=== PATIENT | male | born 1950 | race Caucasian/White ===

== ENCOUNTER 2018-06-19 18:24 | Observation (INO) | payer OTHER, SELFPAY ==
[2018-06-19 21:30] VITALS: BP 147/73; BP 159/85; PULSE 63; RESP 20; TEMP 36.4; O2SAT 98
[2018-06-19 21:53] VITALS: PULSE 60
[2018-06-19 22:15] VITALS: O2SAT 98
--- NOTE | 2018-06-19 22:15 | HP.PCM_ITS ---
Problem List (1) SIMON (acute kidney injury) Status: Acute (2) Syncope Status: Acute Qualifiers: Syncope type: unspecified Qualified Code(s): R55 - Syncope and collapse (3) HTN (hypertension) Status: Chronic (4) HLD (hyperlipidemia) Status: Acute (5) Diabetes mellitus, type II Status: Acute (6) CAD (coronary artery disease) Status: Acute (7) S/P CABG x 4 Status: Acute (8) Morbid obesity Status: Acute (9) PVD (peripheral vascular disease) Status: Acute (10) Aortic stenosis Status: Acute History of Present Illness Date of Admission: 06/19/18 Chief Complaint: Syncopal event The patient is a 67 y/o M w/ PMHx: Morbid Obesity, Diabetes mellitus type II, PVD, HTN, HLD, CAD s/p CABG x 4, Hx Urethral stricture s/p dilation, Hx Aortic Stenosis who presents to the [facility] as direct admission from [facility] w/ history of syncopal event following 18-holes of golf while walking after finishing w/ onset lightheadedness, dizziness, mild dyspnea prior, lasting only seconds, noted to have fallen to his knees only with no head trauma or injury. OSH work-up with EKG w/ SR with 1 AVB, CXR without acute findings, normal trop x 1, labs only notable for evidence of SIMON w/ BUN/Cr 28/1.57. He was administered 1L NS. Transfer requested to [facility] secondary to patient living in this area, only up to [place] for golfing with friends. Past Medical History Past Medical History (Chronic Problems): Chronic Problems HTN (hypertension) (Chronic) History of shortness of breath (Chronic) CAP (community acquired pneumonia) (Chronic) Home Medications: Ambulatory Orders Medication Instructions Recorded Aspirin [Aspirin, Baby] 81 mg PO DAILY@0800 06/19/18 Glimepiride [Amaryl] 2 mg PO DAILY 06/19/18 Lisinopril [Zestril] 10 mg PO DAILY 06/19/18 Metoprolol Tartrate [Lopressor 25 mg PO BID 06/19/18 (beta sandy)] Rosuvastatin Calcium [Rosuvastatin 40 mg PO QHS 06/19/18 Calcium] Surgical History: - - Tonsillectomy, urethral dilation secondary to strictures, CABG ?4. Psychiatric History: No pertinent psych hx Lives: Spouse/ Significant Other Smoking Status: Never smoker Tobacco Use: Non-smoker Alcohol: None Drugs: None - *Family History Maternal History Items: - - Patient denies any marked maternal or paternal family history including heart disease, diabetes, cancer. Paternal History Items: - - Patient denies any marked maternal or paternal family history including heart disease, diabetes, cancer. Review of Systems Constitutional: Reports: Weakness, Fatigue. Denies: Chills, Fever, Weight Change HEENT: Denies: Head Aches, Sinus Congestion, Sinus Drainage Cardiovascular: Reports: Light Headedness, Syncope. Denies: Chest Pain, Chest Pressure, Chest Tightness, Heaviness, Orthopnea, Palpitations Respiratory: Reports: Shortness of Breath. Denies: Cough, Shortness of breath at rest, Shortness of breath upon exertion, Sputum production Gastrointestinal: Denies: Abdominal Pain, Nausea, Vomiting Genitourinary: Denies: Dysuria Musculoskeletal: Reports: Leg Pain. Denies: Joint Pain, Joint Tenderness Skin: Reports: Skin Changes. Denies: Rash, Wounds Neurological: Denies: Numbness, Tingling, Focal weakness Psychiatric: Denies: Anxiety, Depression, Homicidal Ideations, Suicidal Ideations Hematologic/ Lymphatic: Denies: Easy Bruising, Easy Bleeding VTE Information - Inpt Only VTE Present on Admission: No VTE Mechan Device Prophylaxis: SCD's VTE Pharm Prophylaxis ordered?: Yes Patient Problems: Active and Suspected Problems Syncope (Acute) HLD (hyperlipidemia) (Acute) Diabetes mellitus, type II (Acute) CAD (coronary artery disease) (Acute) S/P CABG x 4 (Acute) Morbid obesity (Acute) PVD (peripheral vascular disease) (Acute) Aortic stenosis (Acute) SIMON (acute kidney injury) (Acute) Subjective: Seated upright in the bed, no acute distress, notes thirsty currently, no other acute complaints. Objective: Physical Examination: General: awake, alert, oriented x 3 and cooperative, seated upright in bed in no apparent distress. Skin: normal color, turgor, no icterus, cyanosis except bilateral lower extremity right greater than left chronic venous skin changes and bilateral knee abrasions secondary to recent fall. HEENT: AT/NC, EOMI, PERRLA, dry MM, no carotid bruits or JVD noted. Lungs: CTA bilaterally, moderate effort, mild decrease BL bases, no rales, ronchi or wheezing. Heart: Regular rate and rhythm; no gallop, rub audible, SM. Abdomen: soft, morbidly obese, NTTP, ND, normal BS, no HSM; however, habitus makes examination difficult. Extremities: no cyanosis, clubbing, bilateral lower extremity chronic venous skin changes, chronic 1-2+ ankle to distal card edema. Neurological: patient awake, alert, oriented x 3; cognitive function intact; pupils equally reactive to light and accomodation; cranial nerves II-XII grossly normal, moving all 4 extremities, no focal deficits, strength mildly globally decreased. Psychiatric: affect appears normal, no acute evidence of depressive or anxiety feelings. Assessment/Plan All Active Problems Syncope (Acute) HLD (hyperlipidemia) (Acute) Diabetes mellitus, type II (Acute) CAD (coronary artery disease) (Acute) S/P CABG x 4 (Acute) Morbid obesity (Acute) PVD (peripheral vascular disease) (Acute) Aortic stenosis (Acute) SIMON (acute kidney injury) (Acute) The patient is a 67 y/o M w/ PMHx: Morbid Obesity, Diabetes mellitus type II, PVD, HTN, HLD, CAD s/p CABG x 4, Hx Urethral stricture s/p dilation, Hx Aortic Stenosis who presents to the [facility] as direct admission from [facility] w/ history of syncopal event following 18-holes of golf while walking after finishing w/ onset lightheadedness, dizziness, mild dyspnea prior, lasting only seconds, noted to have fallen to his knees only with no head trauma or injury. (1) Syncopal Event: Suspect primarily secondary to dehydration w/ concurrent SIMON secondary to poor intake and prolonged heat/sun exposure of >90 degree heat warning weather day. EKG in ED w/ sinus rhythm without evidence of acute ischemia w/ 1 AVB, CXR w/ no acute cardiopulmonary findings, initial trop normal at OSH prior to transfer. Will admit to PCU, place on a monitored bed to assure no acute myocardial infarction with serial cardiac enzymes and EKGs. Will maintain on fall precautions, obtain admission orthostatic and AM orthostatic VS and increase hydration if appropriate. Gently hydrating given aortic stenosis hx. Although likely secondary to SIMON, dehydration as noted, does have notable cardiac history, thus to be cautious will obtain ECHO, carotid US. If unremarkable work-up, expect possibly discharge tomorrow following work-up completion. (2) Acute kidney injury: Secondary to poor intake, heat exposure concurrently as noted. Admission BUN/Cr 28/1.57 , prior baseline creatinine noted to be 1. Will hydrate, hold nephrotoxic medications and repeat chemistry in AM. If no improvement would plan FeNa and renal US assessment. (3) Diabetes mellitus type II: Hold oral home regimen, HgbA1c pending, ADA diet , accu checks w/ ISS, nutrition consulted for education and teaching. (4) Morbid Obesity: Weight loss and lifestyle changes encouraged, nutrition consulted. (5) CAD: s/p CABG x 4. Will continue home regimen asa, statin, BB. (6) Hypertension: Continue home regimen including metoprolol w/ hold parameters , holding TERI inhibitor secondary to concurrent SIMON presentation with re- addition once improved, PRN hydralazine. (7) Hyperlipidemia: Continue home statin regimen. AM FLP. (8) Valvular heart disease: Noted history of aortic stenosis, unclear extent, echocardiogram ordered. (9) Peripheral vascular disease: Encouraged continued bilateral lower extremity compression stocking usage and elevation. (10) DVT prophylaxis: Continue compression stockings, SCDs, renally dosed Lovenox. Code Visit OBSV E&M: [id number] Initial observation care L3
[2018-06-19 22:42] VITALS: BMI 41.1
[2018-06-19 22:48] VITALS: BMI 41.1
[2018-06-19 22:59] VITALS: PULSE 58
[2018-06-19 23:10] LABS: Bedside Glucose 142 mg/dL (70-110)
[2018-06-19] MEDS: 0.9% Normal Saline 1,000 ML 100 ML IV (23:16)
[2018-06-19 23:20] VITALS: BP 147/73; PULSE 63
[2018-06-19] MEDS: Metoprolol Tartrate 25 MG Tablet PO (23:20)
[2018-06-19 23:30] VITALS: BP 152/75; BP 157/76; BP 163/81; PULSE 57; PULSE 59; PULSE 61
[2018-06-20] VITALS (15 sets, daily range): BP systolic 136–160; BP diastolic 65–84; PULSE 53–73; RESP 18–20; TEMP 36.3–36.7; O2SAT 94–97
[2018-06-20 00:12] LABS: Hemoglobin A1c 7.3 % (4.2-6.3)
[2018-06-20 03:40] LABS: Basophil# 0.02 X10^3/uL; Basophil% 0.2 % (0-1); Eosinophil# 0.17 X10^3/uL; Eosinophils% 1.8 % (0-5); Hematocrit 39.3 % (40-54); Lymphocyte % 26.4 % (19-41); Mean Corp Hgb Conc 33.1 g/gl (32-36); Mean Corpuscular Hgb 27.8 pg (27.0-32.0); Mean Corpuscular Volume 84.2 fL (80-94); Mean Platelet Vol. 10.6 fl (6.2-12.0); Monocyte# 0.76 X10^3/uL; Neutrophil # 6.01 X10^3/uL (2.7-7.7); Neutrophil % 63.5 % (47-70); Platelet Count 201 K/mm3 (150-450); RBC Distribution Width CV 13.7 % (11.6-14.6); RBC Distribution Width SD 41.4 fl (35.1-43.9); Red Blood Count 4.67 M/mm3 (4.6-6.2); White Blood Count 9.5 K/mm3 (4.4-11.0)
[2018-06-20 03:41] LABS: POSITIVE COUNT NO; POSITIVE DIFFERENTIAL NO; POSITIVE MORPHOLOGY NO
[2018-06-20 04:26] LABS: ALB/GLOB Ratio 1.1 RATIO (0.9-2.4); AST(SGOT) 17 U/L (15-37); Alanine Aminotransfer ALT/SGPT 33 U/L (16-61); Albumin, Serum 3.5 g/dL (3.2-5.0); Alkaline Phosphatase 62 U/L (45-117); Anion Gap 11 (5-15); BUN 22 mg/dL (7-18); BUN/Creat Ratio 21.4 RATIO (10-20); Calcium,Total 8.5 mg/dL (8.5-10.1); Chloride 109 mmol/L (98-107); Cholesterol 152 mg/dL (200); Creatinine, Serum 1.03 mg/dL (0.70-1.30); EST Glomerular Filtration Rate 76 mL/min (>60); Est Glom Filt Rate - Afr Amer 92 mL/min (>60); Estimated Creatinine Clearance 75.34 ml/min; Globulin 3.3 g/dL (2.2-4.2); Glucose 130 mg/dL (74-106); High Density Lipoprotein 42 mg/dL; Potassium 3.8 mmol/L (3.5-5.1); Protein, Total 6.8 g/dL (6.4-8.2); Sodium Level 143 mmol/L (136-145); Triglycerides 198 mg/dL; Very Low Density Lipoprotein 40 mg/dL (5-40)
[2018-06-20 07:20] LABS: Bedside Glucose 125 mg/dL (70-110)
[2018-06-20] MEDS: Metoprolol Tartrate 25 MG Tablet PO ×2 (10:19→22:23)
[2018-06-20] MEDS: Aspirin 81 MG TAB.CHEW PO (10:19)
[2018-06-20] MEDS: 0.9% Normal Saline 1,000 ML 100 ML IV (10:23)
[2018-06-20 11:55] LABS: Bedside Glucose 206 mg/dL (70-110)
--- NOTE | 2018-06-20 15:39 | PCM.PROGNOTE ---
<Duy Redding - Last Filed: 06/20/18 15:39> Patient Problems: Active and Suspected Problems Syncope (Acute) HLD (hyperlipidemia) (Acute) Diabetes mellitus, type II (Acute) CAD (coronary artery disease) (Acute) S/P CABG x 4 (Acute) Morbid obesity (Acute) PVD (peripheral vascular disease) (Acute) Aortic stenosis (Acute) SIMON (acute kidney injury) (Acute) Subjective: No CP, tightness, heaviness, pressure, dizziness, LH, Palp, edema, SOB. - Physical Exam General: Alert, Oriented x3, Cooperative HEENT: Atraumatic, PERRLA, EOMI, Normocephalic Neck: Supple, No JVD, Negative Carotid Bruits Lungs: Clear to auscultation, Normal air movement Cardiovascular: Regular rate, Murmur - 2/6 sysolic murmur best heard over the LSB radiating into the neck. Abdomen: Bowel Sounds Present, Soft, Non Tender Extremities: No edema, Capillary Refill Less than 3 Seconds Skin: No rashes, No breakdown Musculoskeletal: No Tenderness to Palpation of Joints or Extremities Neurological: Cranial nerves II-XII grossly intact Psych/Mental Status: Normal Affect, Appropriate, Alert and oriented to time, place, person, mood and affect Vital Signs Temp Pulse Resp BP Pulse Ox 97.3 F L 67 18 156/82 H 97 06/20/18 10:17 06/20/18 11:10 06/20/18 10:17 06/20/18 10:17 06/20/18 10:17 Oxygen Delivery Method Room Air Weight: 302 lb 14.642 oz Body Mass Index (BMI) 41.1 Orthostatic Vital Signs Start: 06/20/18 01:36 Freq: q24h Status: Active Protocol: Activity Type Activity Date Activity User E-Sign Co-Sign Detail Recorded Client Recorded Date Recorded By Document 06/20/18 07:10 PAL [id number] 06/20/18 07:12 PAL 06/20/18 07:10 Orthostatic Vitals Standing -Blood Pressure (90/60-120/80) 142/80 H -Extremity Use Right Arm -Pulse Rate (60-100) 66 Sitting -Blood Pressure (90/60-120/80) 136/65 H -Extremity Use Right Arm -Pulse Rate (60-100) 59 L Lying -Blood Pressure (90/60-120/80) 150/73 H -Extremity Use Right Arm -Pulse Rate (60-100) 57 L Intake and Output for Last 24 Hours 06/18/18 06/19/18 06/20/18 23:59 23:59 23:59 Intake Total 1238 / 1238 Output Total 550 / 550 Balance 688 / 688 Laboratory Tests Past 24 Hrs 06/19/18 06/19/18 06/20/18 22:36 22:36 01:25 WBC RBC Hgb Hct MCV MCH MCHC RDW RDW Differential Plt Count MPV Immature Gran % (Auto) Neut % (Auto) Lymph % (Auto) [place] % (Auto) Eos % (Auto) Baso % (Auto) Absolute Neuts (auto) Absolute Lymphs (auto) Total Counted Sodium Potassium Chloride Carbon Dioxide Anion Gap BUN Creatinine Estim Creat Clear Calc Est GFR (MDRD) Af Amer Est GFR (MDRD) Non-Af BUN/Creatinine Ratio Glucose Hemoglobin A1c 7.3 H Calcium Magnesium 2.0 Total Bilirubin AST ALT Alkaline Phosphatase Troponin I < 0.015 < 0.015 Total Protein Albumin Globulin Albumin/Globulin Ratio Triglycerides Cholesterol LDL Cholesterol VLDL Cholesterol HDL Cholesterol 06/20/18 06/20/18 06/20/18 03:24 03:24 03:24 WBC 9.5 RBC 4.67 Hgb 13.0 Hct 39.3 L MCV 84.2 MCH 27.8 MCHC 33.1 RDW 13.7 RDW Differential 41.4 Plt Count 201 MPV 10.6 Immature Gran % (Auto) 0.100 Neut % (Auto) 63.5 Lymph % (Auto) 26.4 [place] % (Auto) 8.0 Eos % (Auto) 1.8 Baso % (Auto) 0.2 Absolute Neuts (auto) 6.0 Absolute Lymphs (auto) 2.50 Total Counted Not Reportable Sodium 143 Potassium 3.8 Chloride 109 H Carbon Dioxide 23.0 Anion Gap 11 BUN 22 H Creatinine 1.03 Estim Creat Clear Calc 75.34 Est GFR (MDRD) Af Amer 92 Est GFR (MDRD) Non-Af 76 BUN/Creatinine Ratio 21.4 H Glucose 130 H Hemoglobin A1c Calcium 8.5 Magnesium Total Bilirubin 0.60 AST 17 ALT 33 Alkaline Phosphatase 62 Troponin I < 0.015 Total Protein 6.8 Albumin 3.5 Globulin 3.3 Albumin/Globulin Ratio 1.1 Triglycerides 198 Cholesterol 152 LDL Cholesterol 70 VLDL Cholesterol 40 HDL Cholesterol 42 POC Glucose 06/20/18 06/20/18 06/19/18 11:50 07:01 22:19 POC Glucose 206 H 125 H 142 H Medical Necessity - Tobacco Use Smoking Status: Never smoker Tobacco Use: Non-smoker Assessment/Plan All Active Problems Syncope (Acute) HLD (hyperlipidemia) (Acute) Diabetes mellitus, type II (Acute) CAD (coronary artery disease) (Acute) S/P CABG x 4 (Acute) Morbid obesity (Acute) PVD (peripheral vascular disease) (Acute) Aortic stenosis (Acute) SIMON (acute kidney injury) (Acute) 1. Syncope - suspect 2/2 dehydration out golfing in the sun/heat for 18 holes, event happened after. Echo unremarkable, Carotid US pending. Trop negx3, EKG with no new changes, tele neg. 2. SIMON 2/2 dehydration - resolved. Cr went from 1.5 to 1.0 overnight with IV fluids. 3. s/p Porcine AV - stable per echo 4. DMt2 with morbid obesity - refusing insulin, restarting evening amaryl. A1C 7.3, would benefit from increased oral therapy at discharge given his cardiac issues. 5. HTN - likely elevated 2/2 holding TERI for SIMON. Restart at DC. 6. CAD with prior CABGx4 - statin, teri, bb, asa home regimen in place. 7. Hx PVD DVT ppx: lovenox DC planning: likely home tomorrow. This patient was seen by Duy Redding PA-C under the supervision of Dr. Langston. <Naomie Langston - Last Filed: 06/20/18 16:05> - Physical Exam Vital Signs Temp Pulse Resp BP Pulse Ox 97.3 F L 67 18 156/82 H 97 06/20/18 10:17 06/20/18 11:10 06/20/18 10:17 06/20/18 10:17 06/20/18 10:17 Oxygen Delivery Method Room Air Weight: 302 lb 14.642 oz Body Mass Index (BMI) 41.1 Orthostatic Vital Signs Start: 06/20/18 01:36 Freq: q24h Status: Active Protocol: Activity Type Activity Date Activity User E-Sign Co-Sign Detail Recorded Client Recorded Date Recorded By Document 06/20/18 07:10 [facility] [id number] 06/20/18 07:12 PAL 06/20/18 07:10 Orthostatic Vitals Standing -Blood Pressure (90/60-120/80) 142/80 H -Extremity Use Right Arm -Pulse Rate (60-100) 66 Sitting -Blood Pressure (90/60-120/80) 136/65 H -Extremity Use Right Arm -Pulse Rate (60-100) 59 L Lying -Blood Pressure (90/60-120/80) 150/73 H -Extremity Use Right Arm -Pulse Rate (60-100) 57 L Intake and Output for Last 24 Hours 06/18/18 06/19/18 06/20/18 23:59 23:59 23:59 Intake Total 1238 / 1238 Output Total 550 / 550 Balance 688 / 688 Laboratory Tests Past 24 Hrs 06/19/18 06/19/18 06/20/18 22:36 22:36 01:25 WBC RBC Hgb Hct MCV MCH MCHC RDW RDW Differential Plt Count MPV Immature Gran % (Auto) Neut % (Auto) Lymph % (Auto) [place] % (Auto) Eos % (Auto) Baso % (Auto) Absolute Neuts (auto) Absolute Lymphs (auto) Total Counted Sodium Potassium Chloride Carbon Dioxide Anion Gap BUN Creatinine Estim Creat Clear Calc Est GFR (MDRD) Af Amer Est GFR (MDRD) Non-Af BUN/Creatinine Ratio Glucose Hemoglobin A1c 7.3 H Calcium Magnesium 2.0 Total Bilirubin AST ALT Alkaline Phosphatase Troponin I < 0.015 < 0.015 Total Protein Albumin Globulin Albumin/Globulin Ratio Triglycerides Cholesterol LDL Cholesterol VLDL Cholesterol HDL Cholesterol 06/20/18 06/20/18 06/20/18 03:24 03:24 03:24 WBC 9.5 RBC 4.67 Hgb 13.0 Hct 39.3 L MCV 84.2 MCH 27.8 MCHC 33.1 RDW 13.7 RDW Differential 41.4 Plt Count 201 MPV 10.6 Immature Gran % (Auto) 0.100 Neut % (Auto) 63.5 Lymph % (Auto) 26.4 [place] % (Auto) 8.0 Eos % (Auto) 1.8 Baso % (Auto) 0.2 Absolute Neuts (auto) 6.0 Absolute Lymphs (auto) 2.50 Total Counted Not Reportable Sodium 143 Potassium 3.8 Chloride 109 H Carbon Dioxide 23.0 Anion Gap 11 BUN 22 H Creatinine 1.03 Estim Creat Clear Calc 75.34 Est GFR (MDRD) Af Amer 92 Est GFR (MDRD) Non-Af 76 BUN/Creatinine Ratio 21.4 H Glucose 130 H Hemoglobin A1c Calcium 8.5 Magnesium Total Bilirubin 0.60 AST 17 ALT 33 Alkaline Phosphatase 62 Troponin I < 0.015 Total Protein 6.8 Albumin 3.5 Globulin 3.3 Albumin/Globulin Ratio 1.1 Triglycerides 198 Cholesterol 152 LDL Cholesterol 70 VLDL Cholesterol 40 HDL Cholesterol 42 POC Glucose 06/20/18 06/20/18 06/19/18 11:50 07:01 22:19 POC Glucose 206 H 125 H 142 H Assessment/Plan Patient seen by Duy Redding PA-C under my supervision. Patient admitted that he had a brief syncopal episode while he was out playing golf. Patient had been in the heat for quite a while and said that he had been keeping hydrated by drinking lots of fluid. He had no associated urinary or fecal incontinence. EKG was negative and troponin ?3 was also negative. He was admitted and be managed for syncope likely due to dehydration and AK I secondary to dehydration. Patient seen and examined. He had no complaints and felt well. He denied any fever, chills, cough, chest pain, SOB, abdominal pain, diarrhea or vomiting. Review of systems was otherwise negative. Vitals: Vital Signs Height 6 ft Weight: 302 lb 14.642 oz Weight in Pounds 302.9 lbs Pulse Ox 97 Temperature 97.3 F Pulse Rate [Standing] 66 Pulse Rate [Sitting] 59 Pulse Rate [Lying] 57 Pulse Rate 67 Respiratory Rate 18 Blood Pressure [Standing] 142/80 Blood Pressure [Sitting] 136/65 Blood Pressure [Lying] 150/73 Blood Pressure [2nd BP] 159/85 Blood Pressure 156/82 Blood Pressure Position [2nd Semi-Fowlers BP] Blood Pressure Position Semi-Fowlers General: Alert, Oriented x3, Cooperative HEENT: Atraumatic, PERRLA, EOMI, Normocephalic Neck: Supple, No JVD, Negative Carotid Bruits Lungs: Clear to auscultation, Normal air movement Cardiovascular: Regular rate, Murmur - 2/6 sysolic murmur best heard over the LSB radiating into the neck. Abdomen: Bowel Sounds Present, Soft, Non Tender Extremities: No edema, Capillary Refill Less than 3 Seconds Skin: No rashes, No breakdown Musculoskeletal: No Tenderness to Palpation of Joints or Extremities Neurological: Cranial nerves II-XII grossly intact Psych/Mental Status: Normal Affect, Appropriate, Alert and oriented to time, place, person, mood and affect 2D echo showed moderate concentric LVH with EF of 75%, and septal motion consistent with IVCD. No regional wall motion abnormalities, severely enlarged LA nad moderately enlarged RA. RVSP is 33mmHg and has stable appearing bioprosthetic aortic valve apparatus. Carotid USG is pending. Simon has resolved with IVF administration and Cr is down to 1. Plan is to await carotid USG. continue lisinopril for hypertension. Patient counselled to keep hydrated. For likely discharge tomorrow. Rest of management as per Duy Redding PA-C's plan. Code Visit OBSV E&M: [id number] Subsequent observation care L2
[2018-06-20 16:21] LABS: Bedside Glucose 145 mg/dL (70-110)
[2018-06-20] MEDS: Glimepiride 2 MG Tablet PO (16:45)
[2018-06-20] MEDS: Atorvastatin Calcium 80 MG Tablet PO (22:23)
[2018-06-20 23:16] LABS: Bedside Glucose 152 mg/dL (70-110)
[2018-06-21 03:16] VITALS: PULSE 50
[2018-06-21 04:00] VITALS: BP 137/81; PULSE 50; RESP 16; TEMP 36.6; O2SAT 96
[2018-06-21 06:41] LABS: Absolute Lymphocyte Count 2.51 X10^3/ul (0.83-4.51); Absolute Neutrophil Count 4.5 X10^3/uL (2.0-7.7); Basophil# 0.03 X10^3/uL; Basophil% 0.4 % (0-1); Eosinophil# 0.27 X10^3/uL; Eosinophils% 3.4 % (0-5); Hematocrit 39.2 % (40-54); Hemoglobin 13.2 g/dl (13.0-16.5); Lymphocyte # 2.51 X10^3/ul (4.0); Lymphocyte % 31.8 % (19-41); Mean Corp Hgb Conc 33.7 g/gl (32-36); Mean Corpuscular Hgb 28.1 pg (27.0-32.0); Mean Corpuscular Volume 83.6 fL (80-94); Monocyte# 0.59 X10^3/uL; Monocyte% 7.5 % (0-10); Neutrophil # 4.47 X10^3/uL (2.7-7.7); Neutrophil % 56.6 % (47-70); Platelet Count 191 K/mm3 (150-450); RBC Distribution Width CV 13.6 % (11.6-14.6); RBC Distribution Width SD 41.2 fl (35.1-43.9); Red Blood Count 4.69 M/mm3 (4.6-6.2); White Blood Count 7.9 K/mm3 (4.4-11.0)
[2018-06-21 06:46] LABS: POSITIVE COUNT NO; POSITIVE DIFFERENTIAL NO; POSITIVE MORPHOLOGY NO
[2018-06-21 06:52] LABS: Anion Gap 9 (5-15); BUN 16 mg/dL (7-18); BUN/Creat Ratio 15.7 RATIO (10-20); Calcium,Total 8.3 mg/dL (8.5-10.1); Chloride 108 mmol/L (98-107); Creatinine, Serum 1.02 mg/dL (0.70-1.30); EST Glomerular Filtration Rate 77 mL/min (>60); Est Glom Filt Rate - Afr Amer 93 mL/min (>60); Estimated Creatinine Clearance 76.08 ml/min; Glucose 133 mg/dL (74-106); Potassium 3.9 mmol/L (3.5-5.1); Sodium Level 142 mmol/L (136-145)
[2018-06-21 07:00] LABS: Bedside Glucose 148 mg/dL (70-110)
[2018-06-21 07:06] VITALS: PULSE 58
[2018-06-21 07:35] VITALS: O2SAT 94
[2018-06-21 09:01] VITALS: BP 141/84; PULSE 73; RESP 16; TEMP 36.5; O2SAT 95
[2018-06-21 09:11] VITALS: PULSE 73
[2018-06-21] MEDS: Aspirin 81 MG TAB.CHEW PO (09:11)
[2018-06-21] MEDS: Metoprolol Tartrate 25 MG Tablet PO (09:11)
--- NOTE | 2018-06-21 10:41 | PCM.DC ---
- Discharge Diagnoses Current Active Problems: Current Active and Chronic Problems Syncope (Acute) HTN (hypertension) (Chronic) HLD (hyperlipidemia) (Acute) Diabetes mellitus, type II (Acute) CAD (coronary artery disease) (Acute) S/P CABG x 4 (Acute) Morbid obesity (Acute) PVD (peripheral vascular disease) (Acute) Aortic stenosis (Acute) SIMON (acute kidney injury) (Acute) You will use the following diet at home:: Calorie/Carbohydrate Controlled (specify 1200, 1400, etc), Cardiac Discharge Activity: Return to Normal Activity Call your doctor if you observe: Shortness of breath, Dizziness, Fainting spells, Chest pain Additional Instructions: Your hemoglobin A1c was elevated at 7.3%. Recommend increasing your home Amaryl regimen to 4 mg daily. You can use current prescription and take 2 tablets of Amaryl 2 mg. Further follow-up with primary care physician regarding further adjustment and recommendations. Allergies/Adverse Reactions: Allergies No Known Allergies Allergy (Verified 06/19/18 22:24) Medications to take at Discharge Aspirin 162 mg PO DAILY 06/19/18 Lisinopril [Zestril] 10 mg PO DAILY 06/19/18 Metoprolol Tartrate 25 mg PO BID 06/19/18 Multivitamins,Ther W-Minerals [Multivitamin With Minerals] 1 tablet PO DAILY 06/19/18 [place]-3 Fatty Acids/Fish Oil [[place]-3 1,000 mg Softgel] 1 each PO QHS 06/19/18 Rosuvastatin Calcium [Crestor] 40 mg PO DAILY 06/19/18 Glimepiride [Amaryl] 4 mg PO DINNER #0 06/21/18 Primary Care Physician: Juliano Bowles MD [Primary Care Provider] - Please follow up with your Primary Care Physician in: 1 Week Test Results: Test results from this visit will be discussed in further detail at your follow-up appointment, if applicable. Proposed Discharge Date: 06/21/18
--- NOTE | 2018-06-21 10:44 | PCM.DC.SUM ---
<Gloria Rios - Last Filed: 06/21/18 10:54> Discharge Date and Diagnosis Date of Admission: 06/19/18 Date of Discharge: 06/21/18 - Primary Discharge Diagnosis Active and Suspected Problems 1. Syncope suspected secondary to dehydration 2. Acute kidney injury secondary to dehydration - Secondary Discharge Diagnosis Chronic Problems HTN (hypertension) (Chronic) History of shortness of breath (Chronic) CAP (community acquired pneumonia) (Chronic) HLD (hyperlipidemia) Diabetes mellitus, type II CAD (coronary artery disease) S/P CABG x 4 Morbid obesity PVD (peripheral vascular disease) Aortic stenosis Hospital Course and Treatment Operations: None Procedures: 2-D Echocardiogram, - - Carotid ultrasound Summary of Care Provided: The patient is a 67 year old M admitted 06/19/2018 due to syncopal event. He has a past medical history of type 2 diabetes mellitus, morbid obesity, PVD, hypertension, hyperlipidemia, CAD status post CABG ?4, history of urethral stricture status post dilation, history of aortic stenosis. Chest x-ray unremarkable. Troponin negative. EKG sinus rhythm with first-degree AV block. Orthostatic vitals negative. Echocardiogram demonstrated an EF of 75%, left atrium severely enlarged, right atrium moderately enlarged, mild mitral valve insufficiency, mild tricuspid valve insufficiency, RVSP estimated to be 33 mmHg, stable appearing bioprosthetic aortic valve. Carotid ultrasound demonstrated 50-69% stenosis of the right internal carotid and 50-69% stenosis in the left internal carotid. Patient follows with Dr. Garrido, [facility] cardiology. Patient was noted to have acute kidney injury secondary to dehydration which is suspected because of syncopal event. Patient notes he was golfing 18 holes and significant heat prior to syncopal episode. Creatinine at outside facility 1.5. Baseline creatinine 1.0. Creatinine improved with IV fluids. Hemoglobin A1c 7.3%. Recommend increasing home Amaryl regimen to 4 mg daily with further outpatient follow-up with primary care physician regarding medication adjustments. Follow-up with cardiology as scheduled. Follow-up with primary care physician in 1 week. General: Alert, Oriented x3, Cooperative HEENT: Atraumatic, PERRLA, EOMI, Normocephalic Neck: Supple, No JVD, Negative Carotid Bruits Lungs: Clear to auscultation, Normal air movement Cardiovascular: Regular rate, regular rhythm, murmur Abdomen: Bowel Sounds Present, Soft, Non Tender Extremities: No edema, Capillary Refill Less than 3 Seconds Skin: No rashes, No breakdown Musculoskeletal: No Tenderness to Palpation of Joints or Extremities Neurological: Cranial nerves II-XII grossly intact Psych/Mental Status: Normal Affect, Appropriate Patient seen exam prior to discharge. Physical assessment as noted above. Patient is stable for discharge home with follow-up her conditions as noted above. This patient was seen by MEENU Ruiz under the supervision of Dr. Langston. Discharge Diet: Low fat/ Low Cholesterol, Carb Control Diet Discharge Activity: Return to Normal Activity Call your doctor if you observe: Shortness of breath, Dizziness, Fainting spells, Chest pain Home Medications: Medications to take at Discharge Aspirin 162 mg PO DAILY 06/19/18 Lisinopril [Zestril] 10 mg PO DAILY 06/19/18 Metoprolol Tartrate 25 mg PO BID 06/19/18 Multivitamins,Ther W-Minerals [Multivitamin With Minerals] 1 tablet PO DAILY 06/19/18 [place]-3 Fatty Acids/Fish Oil [[place]-3 1,000 mg Softgel] 1 each PO QHS 06/19/18 Rosuvastatin Calcium [Crestor] 40 mg PO DAILY 06/19/18 Glimepiride [Amaryl] 4 mg PO DINNER #0 06/21/18 Primary Care Physician: Juliano Bowles MD [Primary Care Provider] - Please follow up with your Primary Care Physician in: 1 Week Disposition: Home Minutes spent on discharge:: 35 Patient Condition:: Stable Medical Necessity - Tobacco Use Smoking Status: Never smoker Tobacco Use: Non-smoker Meaningful Use Info Meaningful Use Diagnoses (Choose all that apply): None applicable <Naomie Langston - Last Filed: 06/21/18 11:39> Discharge Date and Diagnosis - Secondary Discharge Diagnosis Chronic Problems HTN (hypertension) (Chronic) History of shortness of breath (Chronic) CAP (community acquired pneumonia) (Chronic) Hospital Course and Treatment Summary of Care Provided: Patient seen by Gloria CORRIGAN under my supervision The patient is a 67 year old M who was admitted with a syncopal event. He has past medical history as stated above. He was out playing golf with friends and felt very hot due to the weather and passed out. He had no assisted urinary fecal incontinence and no evidence of seizure was noted. Orthostatics were negative. Was admitted and managed for AK I and syncopal event. Creatinine trended down and AK resolved with initiation of IV fluid. Echo showed EF of 75% and severely enlarged left atrium, moderately enlarged right atrium and mild 1+ mitral valve tricuspid valve insufficiency. RVSP was estimated to be on 33% and had a stable appearing bioprosthetic aortic valve. Carotid ultrasound as documented above revealed bilateral 50-69% stenosis of right and left internal carotid arteries. Patient remained stable and was discharged home on 06/21/2018. He is to follow-up with his surveillance specialist Dr. Faria [facility]. His follow-up with his primary care doctor in 1 week. Home medications reviewed and reconciled. He is continue taking his high intensity statin as prescribed. Patient seen and examined prior to discharge. He had no complaints and felt well. He was anticipating going home today. He denied any fever or chills, cough or chest pain, shortness of breath, abdominal pain, diarrhea vomiting. Labs and vitals reviewed. o/e: Vital Signs Height 6 ft Weight: 302 lb 14.642 oz Weight in Pounds 302.9 lbs Pulse Ox 95 Temperature 97.7 F Pulse Rate [Standing] 66 Pulse Rate [Sitting] 59 Pulse Rate [Lying] 57 Pulse Rate 73 Respiratory Rate 16 Blood Pressure [Standing] 142/80 Blood Pressure [Sitting] 136/65 Blood Pressure [Lying] 150/73 Blood Pressure [2nd BP] 159/85 Blood Pressure 141/84 Blood Pressure Position [2nd Semi-Fowlers BP] Blood Pressure Position Semi-Fowlers General: Alert, Oriented x3, Cooperative HEENT: Atraumatic, PERRLA, EOMI, Normocephalic Neck: Supple, No JVD, Negative Carotid Bruits Lungs: Clear to auscultation, Normal air movement Cardiovascular: Regular rate, regular rhythm, murmur Abdomen: Bowel Sounds Present, Soft, Non Tender Extremities: No edema, Capillary Refill Less than 3 Seconds Skin: No rashes, No breakdown Musculoskeletal: No Tenderness to Palpation of Joints or Extremities Neurological: Cranial nerves II-XII grossly intact Psych/Mental Status: Normal Affect, Appropriate Plan as stated above. Agree with rest of Gloria Rios NP-C's note. [] Code Visit Inpatient E&M: 94798 Disch Hosp
== END 2018-06-21 10:42 | disposition home or self-care (01) ==
PROVIDERS: Family Medicine; Admitting Provider Student in an Organized Health Care Education/Training Program; Family Provider Family Medicine; PCP Family Medicine; Visit Provider Student in an Organized Health Care Education/Training Program
DX: R55 Syncope and collapse (principal); N17.9 Acute kidney failure, unspecified; E86.0 Dehydration; I25.10 Atherosclerotic heart disease of native coronary artery without angina pectoris; E11.51 Type 2 diabetes mellitus with diabetic peripheral angiopathy without gangrene; I10 Essential (primary) hypertension; E78.5 Hyperlipidemia, unspecified; E66.01 Morbid (severe) obesity due to excess calories; Z68.41 Body mass index [BMI] 40.0-44.9, adult; Z95.1 Presence of aortocoronary bypass graft; Z71.3 Dietary counseling and surveillance; Z79.899 Other long term (current) drug therapy; Z79.82 Long term (current) use of aspirin; Z79.84 Long term (current) use of oral hypoglycemic drugs; I08.1 Rheumatic disorders of both mitral and tricuspid valves; I44.0 Atrioventricular block, first degree
CPT/HCPCS: 36415; 80048; 80053; 80061; 82962; 83036; 83735; 84484; 85025; 93005; 93306; 93880; 96360; 96361; 96372; 97162; 97802; 99218; J7030; G0378

== ENCOUNTER → 2019-06-21 | Outpatient (CLI) | payer OTHER, SELFPAY ==
[2019-06-21 12:41] LABS: Absolute Lymphocyte Count 1.65 X10^3/uL (0.83-4.51); Basophil# 0.04 X10^3/uL; Basophil% 0.5 % (0-1); Eosinophil# 0.26 X10^3/uL; Eosinophils% 3.5 % (0-5); Hematocrit 43.6 % (40-54); Hemoglobin 14.1 g/dL (13.0-16.5); Lymphocyte # 1.65 X10^3/ul (4.0); Lymphocyte % 21.9 % (19-41); Mean Corp Hgb Conc 32.3 g/dL (32-36); Mean Corpuscular Volume 86.5 fL (80-94); Monocyte# 0.53 X10^3/uL; NRBC Flagged by Analyzer 0 % (0-5); Neutrophil % 66.4 % (47-70); Platelet Count 190 K/mm3 (150-450); RBC Distribution Width SD 40.6 fl (35.1-43.9); Red Blood Count 5.04 M/mm3 (4.6-6.2); White Blood Count 7.5 K/mm3 (4.4-11.0)
[2019-06-21 13:36] LABS: ALB/GLOB Ratio 1.1 RATIO (0.9-2.4); AST(SGOT) 20 U/L (15-37); Alanine Aminotransfer ALT/SGPT 35 U/L (16-61); Albumin, Serum 3.8 g/dL (3.2-5.0); Alkaline Phosphatase 80 U/L (45-117); Anion Gap 8 (5-15); BUN 13 mg/dL (7-18); BUN/Creat Ratio 12.3 RATIO (10-20); Calcium,Total 9.3 mg/dL (8.5-10.1); Chloride 105 mmol/L (98-107); Creatinine, Serum 1.06 mg/dL (0.70-1.30); EST Glomerular Filtration Rate 74 mL/min (>60); Est Glom Filt Rate - Afr Amer 89 mL/min (>60); Globulin 3.6 g/dL (2.2-4.2); Glucose 163 mg/dL (74-106); Potassium 4.1 mmol/L (3.5-5.1); Protein, Total 7.4 g/dL (6.4-8.2); Sodium Level 142 mmol/L (136-145); Thyroid Stim Hormone (TSH) 2.34 uIU/mL (0.358-3.74)
== END | disposition home or self-care (01) ==
LOC: BFHLAB 10:47
PROVIDERS: Family Provider Family Medicine; PCP Family Medicine; Visit Provider Family Medicine
DX: I10 Essential (primary) hypertension (principal); E11.9 Type 2 diabetes mellitus without complications; I25.10 Atherosclerotic heart disease of native coronary artery without angina pectoris
CPT/HCPCS: 36415; 80053; 84443; 85025

== ENCOUNTER → 2019-07-22 | Outpatient (CLI) | payer OTHER, SELFPAY ==
[2019-07-12 13:28] VITALS: BMI 41.6
[2019-07-22 11:37] LABS: AST(SGOT) 19 U/L (15-37); Alanine Aminotransfer ALT/SGPT 31 U/L (16-61); Albumin, Serum 3.8 g/dL (3.2-5.0); Alkaline Phosphatase 72 U/L (45-117); Bilirubin, Direct 0.12 mg/dL (0.00-0.30); Cholesterol 166 mg/dL (200); Globulin 3.5 g/dL (2.2-4.2); High Density Lipoprotein 42 mg/dL; Protein, Total 7.3 g/dL (6.4-8.2); Triglycerides 194 mg/dL; Very Low Density Lipoprotein 39 mg/dL (5-40)
== END | disposition home or self-care (01) ==
LOC: LAB 09:27
PROVIDERS: Family Provider Family Medicine; PCP Family Medicine; Referring Provider Internal Medicine Cardiovascular Disease; Visit Provider Internal Medicine Cardiovascular Disease
DX: E78.00 Pure hypercholesterolemia, unspecified (principal)
CPT/HCPCS: 36415; 80061; 80076

== ENCOUNTER → 2019-08-02 | Outpatient (CLI) | payer OTHER, SELFPAY ==
[2019-07-12 13:28] VITALS: BMI 41.6
--- NOTE | 2019-08-02 09:21 | ECHOCS_ITS ---
Reason For Study: VALVE REPLAC Procedure This was a 2D Doppler, Color Flow transthoracic echocardiogram. Contrast injection was performed. The study was technically difficult. Exam performed in department. Left Ventricle Mild concentric left ventricular hypertrophy. The estimated ejection fraction is 60 %. Septal motion consistent with IVCD. No regional wall motion abnormalities noted. Right Ventricle Moderately dilated right ventricle. Normal systolic function. Atria The left atrium is severely enlarged. The right atrium is mildly enlarged. Normal atrial septum. Mitral Valve Severe mitral annular calcification extending into the posterior leaflet. Mild diffuse mitral valve thickening. Mild mitral valve stenosis. Peak transmitral valve gradient 9 mmHg. Mean transmitral valve gradient 3 mmHg. Tricuspid Valve Normal tricuspid valve. Mild (1+) tricuspid valve insufficiency. Right ventricular systolic pressure estimated to be 33 mmHg. Aortic Valve Peak aortic valve gradient 24 mmHg. Mean aortic valve gradient 14 mmHg. Trivial aortic valve insufficiency. Stable appearing bioprosthetic aortic valve apparatus. Pulmonic Valve Normal pulmonic valve. Mild (1+) pulmonic valve insufficiency. Great Vessels Normal aortic root. Normal arch. Normal inferior vena cava. Inferior vena cava collapse with sniff. Pericardium/Pleural No pericardial effusion. Medication 22 gauge I.V. with prn adaptor inserted into right arm. Diluted definity 2.5ml given slow IV push to enhance endocardial definition. MMode/2D Measurements & Calculations LVIDd: 5.4 cm IVSd: 1.2 cm LVOT diam: 2.0 cm LVIDs: 3.7 cm LVPWd: 1.4 cm RVDd: 5.2 cm FS: 31.4 % LVOT area: 3.1 cm2 Ao root diam: 3.9 cm LAV(MOD-bp): 100.2 ml LVAd ap4: 48.9 cm2 LAV(MOD-bp) Indexed: 39.1 ml/m2 EDV(MOD-sp4): 199.5 ml LAV(MOD-sp2): 102.9 ml EDV(sp4-el): 213.6 ml LAV(MOD-sp4): 95.0 ml LVAs ap4: 29.3 cm2 ESV(MOD-sp4): 94.0 ml ESV(sp4-el): 98.5 ml EF(MOD-sp4): 52.9 % EF(sp4-el): 53.9 % SV(MOD-sp4): 105.6 ml SV(sp4-el): 115.0 ml LA A4 area: 28.4 cm2 LA dimension(2D): 5.4 cm RA A4 area: 21.1 cm2 Time Measurements MV dec time: 0.38 sec Doppler Measurements & Calculations MV E max justice: 147.4 cm/sec Lat Peak E' Justice: 3.1 cm/sec Med Peak E' Justice: 3.4 cm/sec MV A max justice: 121.4 cm/sec E/E' lat: 47.6 E/E' med: 43.1 MV E/A: 1.2 MV V2 max: 147.8 cm/sec Ao V2 max: 243.5 cm/sec LV V1 max: 98.9 cm/sec MV max P.7 mmHg Ao max P.7 mmHg LV V1 max P.9 mmHg MV V2 mean: 83.9 cm/sec Ao V2 mean: 176.4 cm/sec LV V1 mean P.5 mmHg MV mean P.3 mmHg Ao mean P.8 mmHg LV V1 mean: 75.9 cm/sec MV V2 VTI: 56.6 cm Ao V2 VTI: 62.5 cm LV V1 VTI: 29.4 cm MVA(VTI): 1.6 cm2 JOANIE(I,D): 1.5 cm2 JOANIE(V,D): 1.3 cm2 SV(LVOT): 92.7 ml PA V2 max: 115.4 cm/sec PI end-d justice: 87.9 cm/sec TR max justice: 252.8 cm/sec MV P1/2t-pr_phl: 122.2 msec TR max P.6 mmHg Interpretation Summary Mild concentric left ventricular hypertrophy. The estimated ejection fraction is 60 %. The left atrium is severely enlarged. The right atrium is mildly enlarged. Mild (1+) tricuspid valve insufficiency. Right ventricular systolic pressure estimated to be 33 mmHg. Stable appearing bioprosthetic aortic valve apparatus. Mild mitral valve stenosis. Compared to echo report dated 06/20/2018, no appreciable changes noted. The study was technically difficult. Contrast injection was performed. Ordering Physician: Tru Carrillo Referring Physician: NEFTALY JACK Performed By: Ruthann Mack, CAROL, RVT
--- NOTE | 2019-08-02 09:21 | CDU_ITS ---
Reason For Study: Bilateral carotid stenosis Rt. Velocities/BP Lt. Velocities/BP Prox CCA 57.8/8.2 cm/sec. Prox CCA 88.8/15.7 cm/sec. Mid CCA 60.4/12.1 cm/sec. Mid CCA 72.3/15.7 cm/sec. Dist CCA 54.1/14.5 cm/sec. Dist CCA 66.6/13.8 cm/sec. Prox ICA 135.7/33.4 cm/sec. Prox ICA 81.4/28.6 cm/sec. Mid ICA 60.8/24.5 cm/sec. Mid ICA 76.5/28.6 cm/sec. Dist ICA 96.2/24.9 cm/sec. Dist ICA 95.5/37.1 cm/sec. Rt. ICA/CCA = 2.3. Lt. ICA/CCA = 1.3. Prox ECA 112.1/9 cm/sec. Prox ECA 141.2/17 cm/sec. Rt. Vert. 35.3/6.1 cm/sec. Lt. Vert. 36.9/10.7 cm/sec. Right Extracranial There is homogeneous, smooth atherosclerotic plaque noted in the right common carotid artery. There is heterogeneous, irregular atherosclerotic plaque noted in the right internal carotid artery. There is homogeneous, smooth atherosclerotic plaque noted in the right external carotid artery. Antegrade flow is noted in the right vertebral artery. Left Extracranial There is homogeneous, smooth atherosclerotic plaque noted in the left common carotid artery. There is heterogeneous, irregular atherosclerotic plaque noted in the left internal carotid artery. There is heterogeneous, irregular atherosclerotic plaque noted in the left external carotid artery. Antegrade flow is noted in the left vertebral artery. Procedure Carotid Duplex [id number]. Exam performed in department. Interpretation Summary Calcific plague right internal and external carotids 50-69% stenosis right internal carotid <50% stenosis right external carotid Irregular calcific plague left internal and external carotids <50% stenosis left internal carotid <50% stenosis left external carotid Patent and antegrade vertebrals bilaterally No advancement of disease since 06/20/18 Ordering Physician: Tru Carrillo Referring Physician: Juliano Bowles Performed By: Shanice Rossi RVT
== END | disposition home or self-care (01) ==
PROVIDERS: Family Provider Family Medicine; PCP Family Medicine; Referring Provider Internal Medicine Cardiovascular Disease; Visit Provider Internal Medicine Cardiovascular Disease
DX: I25.10 Atherosclerotic heart disease of native coronary artery without angina pectoris (principal); I65.23 Occlusion and stenosis of bilateral carotid arteries; I10 Essential (primary) hypertension; E78.5 Hyperlipidemia, unspecified; Z95.3 Presence of xenogenic heart valve; Z95.1 Presence of aortocoronary bypass graft; Z86.79 Personal history of other diseases of the circulatory system
CPT/HCPCS: 93306; 93880; Q9957; A4216; C8929

== ENCOUNTER → 2019-08-09 | Outpatient (CLI) | payer OTHER, SELFPAY ==
[2019-07-12 13:28] VITALS: BMI 41.6
--- NOTE | 2019-08-09 09:35 | STEWCON_ITS ---
Reason For Study: S/P CABG Stress Results Protocol: Gino Protocol Maximum Predicted HR: 151 bpm Target HR: 128 bpm % Maximum Predicted HR: 80 % DurationHeart Rate Stage (mm:ss) (bpm) BP Comment Baseline 60 128/74No Chest Pain; 3 ML Diluted Definity Given Gino Protocol Stage I 3:00 105 134/72No Chest Pain; Mild Dyspnea Gino Protocol Stage II 2:30 121 158/72No Chest Pain; Mild to Moderate Dyspnea Recovery 62 132/80No Chest Pain; No Dyspnea Stress Duration: 5:30 mm:ss Maximum Stress HR: 121 bpm METS: 7 Baseline Echocardiogram Findings The estimated ejection fraction is 65 %. Stress Echo Wall motion Data Resting WM Intermediate WM Stress WM Resting Wall Motion Wall Motion Stress No regional wall motion Basal anteroseptal: Severely abnormalities noted. Hypokinetic. Mid-Anterior : Severely Hypokinetic. Mid-Lateral : Severely Hypokinetic. EKG Data The baseline ECG displays normal sinus rhythm. LBBB. The patient exercised according to the regular Gino protocol for a total duration of 5:3. The maximum heart rate attained was 5:30 beats per minute. This was 80% of maximum predicted heart rate. The patient exercised into stage 2 of the Gino protocol. During stress, there were no ST or T wave changes noted to suggest ischemia. No clinical angina was noted. Interpretation Summary The estimated ejection fraction is 65 %. Basal anteroseptal: Severely Hypokinetic. Abnormal, submaximal, treadmill echocardiogram. Positive for ischemia by echocardiographic criteria. No anginal symptoms noted. Rare PVCs and PACs noted. Test terminated due to dyspnea which may be an anginal equivalent. Patient developed mid anteroseptal and lateral hypokinesis at peak exercise. Below average exercise capacity for age. Poor echo windows requiring Definity agent and baseline left bundle branch block may affect integrity of the test. Final LVEF of 35%. The patient will be referred to our office for left heart catheterization and graft angiography. The study was technically difficult. Contrast injection was performed. Ordering Physician: Tru Carrillo Referring Physician: Juliano Bowles Performed By: Miranda Lloyd RDCS, RVT
== END | disposition home or self-care (01) ==
LOC: CVS 09:33
PROVIDERS: Family Provider Family Medicine; PCP Family Medicine; Referring Provider Internal Medicine Cardiovascular Disease; Visit Provider Internal Medicine Cardiovascular Disease
DX: I25.10 Atherosclerotic heart disease of native coronary artery without angina pectoris (principal); E78.5 Hyperlipidemia, unspecified; Z95.1 Presence of aortocoronary bypass graft; Z95.3 Presence of xenogenic heart valve
CPT/HCPCS: 93017; 93350; Q9957; A4216; C8928

== ENCOUNTER → 2019-11-22 | Outpatient (CLI) | payer OTHER, SELFPAY ==
[2019-07-12 13:28] VITALS: BMI 41.6
[2019-11-22 16:00] LABS: Absolute Lymphocyte Count 1.73 X10^3/uL (0.83-4.51); Absolute Neutrophil Count 5.2 X10^3/uL (2.0-7.7); Basophil# 0.04 X10^3/uL; Basophil% 0.5 % (0-1); Eosinophil# 0.21 X10^3/uL; Eosinophils% 2.7 % (0-5); Hemoglobin 13.9 g/dL (13.0-16.5); Lymphocyte # 1.73 X10^3/ul (4.0); Lymphocyte % 22.2 % (19-41); Mean Corp Hgb Conc 32.3 g/dL (32-36); Mean Corpuscular Hgb 26.8 pg (27.0-32.0); Mean Corpuscular Volume 82.9 fL (80-94); Monocyte# 0.55 X10^3/uL; Monocyte% 7.1 % (0-10); NRBC Flagged by Analyzer 0 % (0-5); Neutrophil # 5.22 X10^3/uL (2.7-7.7); Neutrophil % 67.1 % (47-70); Platelet Count 141 K/mm3 (150-450); RBC Distribution Width CV 13.2 % (11.6-14.6); RBC Distribution Width SD 39.9 fl (35.1-43.9); Red Blood Count 5.19 M/mm3 (4.6-6.2); White Blood Count 7.8 K/mm3 (4.4-11.0)
[2019-11-22 16:04] LABS: AST(SGOT) 17 U/L (15-37); Alanine Aminotransfer ALT/SGPT 35 U/L (16-61); Albumin, Serum 3.7 g/dL (3.2-5.0); Alkaline Phosphatase 87 U/L (45-117); Anion Gap 6 (5-15); BUN 14 mg/dL (7-18); BUN/Creat Ratio 12.2 RATIO (10-20); Calcium,Total 8.8 mg/dL (8.5-10.1); Chloride 106 mmol/L (98-107); Creatinine, Serum 1.15 mg/dL (0.70-1.30); EST Glomerular Filtration Rate 67 mL/min (>60); Est Glom Filt Rate - Afr Amer 81 mL/min (>60); Globulin 3.6 g/dL (2.2-4.2); Glucose 209 mg/dL (74-106); Magnesium 1.9 mg/dL (1.6-2.6); Potassium 4.2 mmol/L (3.5-5.1); Protein, Total 7.3 g/dL (6.4-8.2); Sodium Level 138 mmol/L (136-145); Thyroid Stim Hormone (TSH) 2.08 uIU/mL (0.358-3.74)
[2019-11-22 16:17] LABS: BNP,B-Type NATRIURETIC PEPTIDE 59.7 pg/mL (0-100)
== END | disposition home or self-care (01) ==
LOC: BFHLAB 14:07
PROVIDERS: PCP Family Medicine; Visit Provider Family Medicine
DX: I51.7 Cardiomegaly (principal); I49.9 Cardiac arrhythmia, unspecified; E11.9 Type 2 diabetes mellitus without complications; R06.00 Dyspnea, unspecified
CPT/HCPCS: 36415; 80053; 83735; 83880; 84443; 85025

== ENCOUNTER → 2019-11-25 | Outpatient (CLI) | payer OTHER, SELFPAY ==
[2019-07-12 13:28] VITALS: BMI 41.6
--- NOTE | 2019-11-25 09:28 | RAD_ITS ---
STUDY: X-RAY CHEST REASON FOR EXAM: Male, 69 years old. Sob and tightness/pressure in chest for approx. 2 months TECHNIQUE: PA and lateral views of the chest. COMPARISON: Comparison is made with prior examination dated July 22 FINDINGS: The lungs are clear and expanded. There is no demonstrated pleural abnormality. Sternal cerclage wires and vascular clips are present from a prior sternotomy and coronary artery bypass graft procedure (CABG). Borderline cardiomegaly. Normal mediastinum and jane. Normal visualized pulmonary arteries. There is atherosclerotic tortuosity of the aortic arch and descending thoracic aorta. There are diffuse degenerative changes of the visualized thoracic spine. Normal visualized ribs, clavicles, and shoulders. There is no demonstrated abnormality of the visualized soft tissue structures of the upper abdomen. RAD/Chest PA and Lateral IMPRESSION: Borderline cardiomegaly. The lungs are clear. Electronically Signed: Jacques Ng, at 11:05 EST , Service support ,
== END | disposition home or self-care (01) ==
LOC: RAD 09:24
PROVIDERS: PCP Family Medicine; Referring Provider Family Medicine; Visit Provider Family Medicine
DX: I51.7 Cardiomegaly (principal); R06.00 Dyspnea, unspecified; Z95.3 Presence of xenogenic heart valve; Z98.890 Other specified postprocedural states
CPT/HCPCS: 71046

== ENCOUNTER → 2020-11-13 09:17 | Outpatient (CLI) | payer MEDICARE, OTHER, SELFPAY ==
[2019-07-12 13:28] VITALS: BMI 41.6
[2020-11-13 12:24] LABS: Absolute Lymphocyte Count 1.73 X10^3/uL (0.83-4.51); Basophil# 0.05 X10^3/uL; Basophil% 0.7 % (0-1); Eosinophils% 2.7 % (0-5); Hematocrit 42.1 % (40-54); Hemoglobin 13.9 g/dL (13.0-16.5); Lymphocyte # 1.73 X10^3/ul (4.0); Lymphocyte % 22.9 % (19-41); Mean Corpuscular Hgb 27.9 pg (27.0-32.0); Mean Corpuscular Volume 84.5 fL (80-94); Mean Platelet Vol. 11.6 fl (6.2-12.0); Monocyte# 0.53 X10^3/uL; NRBC Flagged by Analyzer 0 % (0-5); Neutrophil # 5.01 X10^3/uL (2.7-7.7); Neutrophil % 66.4 % (47-70); POSITIVE COUNT YES; RBC Distribution Width CV 12.9 % (11.6-14.6); RBC Distribution Width SD 39.4 fl (35.1-43.9); Red Blood Count 4.98 M/mm3 (4.6-6.2); White Blood Count 7.5 K/mm3 (4.4-11.0)
[2020-11-13 12:53] LABS: ALB/GLOB Ratio 1.1 RATIO (0.9-2.4); AST(SGOT) 17 U/L (15-37); Alanine Aminotransfer ALT/SGPT 41 U/L (16-61); Albumin, Serum 3.7 g/dL (3.2-5.0); Alkaline Phosphatase 71 U/L (45-117); Anion Gap 6 (5-15); BUN 13 mg/dL (7-18); BUN/Creat Ratio 12.4 RATIO (10-20); Calcium,Total 8.7 mg/dL (8.5-10.1); Chloride 107 mmol/L (98-107); Cholesterol 170 mg/dL (200); Creatinine, Serum 1.05 mg/dL (0.70-1.30); EST Glomerular Filtration Rate 74 mL/min (>60); Est Glom Filt Rate - Afr Amer 90 mL/min (>60); Globulin 3.5 g/dL (2.2-4.2); Glucose 195 mg/dL (74-106); High Density Lipoprotein 46 mg/dL; Protein, Total 7.2 g/dL (6.4-8.2); Sodium Level 137 mmol/L (136-145); Triglycerides 191 mg/dL; Very Low Density Lipoprotein 38 mg/dL (5-40)
[2020-11-13 13:15] LABS: Platelet Estimate ADEQUATE (ADEQ)
== END ==
PROVIDERS: PCP Family Medicine; Visit Provider Family Medicine
DX: E11.9 Type 2 diabetes mellitus without complications (principal); I20.9 Angina pectoris, unspecified; I10 Essential (primary) hypertension
CPT/HCPCS: 36415; 80053; 80061; 85025

== ENCOUNTER → 2020-11-27 12:43 | Outpatient (CLI) | payer MEDICARE, OTHER, SELFPAY ==
[2020-11-23 09:19] VITALS: BMI 40.5
--- NOTE | 2020-11-27 12:57 | CDU_ITS ---
Reason For Study: CAROTID STENOSIS Rt. Velocities/BP Lt. Velocities/BP Prox CCA 85.6/7.3 cm/sec. Prox CCA 136.3/24.8 cm/sec. Mid CCA 74.2/15.5 cm/sec. Mid CCA 78.7/14.9 cm/sec. Dist CCA 68.1/13.3 cm/sec. Dist CCA 88.5/13.8 cm/sec. Prox ICA 154.9/23.3 cm/sec. Prox ICA 114.9/29.0 cm/sec. Mid ICA 80.9/26.9 cm/sec. Mid ICA 102.9/29.0 cm/sec. Dist ICA 112.5/32.1 cm/sec. Dist ICA 109.4/34.5 cm/sec. Rt. ICA/CCA = 154.9/85.6=1.8. Lt. ICA/CCA = 114.9/88.5=1.3. Prox ECA 144.0/0.0 cm/sec. Prox ECA 158.2/8.4 cm/sec. Rt. Vert. 56.7/10.5 cm/sec. Lt. Vert. 48.3/10.9 cm/sec. Right Extracranial There is homogeneous, smooth atherosclerotic plaque noted in the right common carotid artery. There is heterogeneous, irregular atherosclerotic plaque noted in the right internal carotid artery. There is heterogeneous, irregular atherosclerotic plaque noted in the right external carotid artery. Antegrade flow is noted in the right vertebral artery. There is heterogeneous, irregular atherosclerotic plaque noted in the right bulb. Left Extracranial There is heterogeneous, smooth atherosclerotic plaque noted in the left common carotid artery. There is heterogeneous, irregular atherosclerotic plaque noted in the left internal carotid artery. There is heterogeneous, irregular atherosclerotic plaque noted in the left external carotid artery. Antegrade flow is noted in the left vertebral artery. There is heterogeneous, irregular atherosclerotic plaque noted in the left bulb. Interpretation Summary Moderate (50-69%) stenosis right extracranial internal carotid. Mild (<50%) stenosis left extracranial internal carotid. Flow within the vertebral arteries is antegrade bilaterally. Heterogeneous, irregular atherosclerotic plaque is noted in the carotid bulbs bilaterally, which does not appear to be hemodynamically significant. Ordering Physician: Kaity Kan Referring Physician: Juliano Bowles Performed By: Miranda Lloyd, CAROL, RVT
--- NOTE | 2020-11-27 12:57 | ECHOCS_ITS ---
Reason For Study: Dyspnea/SOB Procedure This was a 2D Doppler, Color Flow transthoracic echocardiogram. Technically difficult study due to patients body habitus. Contrast injection performed. Exam performed in department. Left Ventricle Normal LV size. Moderate concentric left ventricular hypertrophy. Left ventricular systolic function is normal. The estimated ejection fraction is 60 %. Stage 1 diastolic dysfunction. No regional wall motion abnormalities noted. Atria The left atrium is mildly enlarged. Normal right atrium. Mitral Valve There is mild mitral annular calcification. Mild (1+) eccentric mitral valve insufficiency. Tricuspid Valve Normal tricuspid valve. Unable to estimate RV systolic pressure due to inadequate jet, pulmonary artery pressure probably normal. Aortic Valve Peak aortic valve gradient 28 mmHg. Mean aortic valve gradient 16 mmHg. Mild aortic stenosis. Mild (1+) aortic valve insufficiency. Bioprosthetic aortic valve. Great Vessels Normal aortic root. The pulmonary artery is normal size. Normal inferior vena cava. Pericardium/Pleural No pericardial effusion. Medication 22 gauge I.V. with prn adaptor inserted into left arm. Diluted definity 3ml given slow IV push to enhance endocardial definition. MMode/2D Measurements & Calculations LVIDd: 5.3 cm IVSd: 1.8 cm LVOT diam: 2.0 cm LVIDs: 3.3 cm LVPWd: 1.6 cm LVOT area: 3.1 cm2 FS: 38.5 % Ao root diam: 3.2 cm LAV(MOD-sp4): 80.2 ml LA A4 area: 24.7 cm2 LA dimension: 5.6 cm Time Measurements MV dec time: 0.40 sec Doppler Measurements & Calculations MV E max justice: 115.1 cm/sec Lat Peak E' Justice: 6.5 cm/sec Med Peak E' Justice: 4.8 cm/sec MV A max justice: 146.6 cm/sec E/E' lat: 17.8 E/E' med: 23.8 MV E/A: 0.79 MV V2 max: 176.2 cm/sec MV P1/2t max justice: 150.2 cm/sec Ao V2 max: 263.5 cm/sec MV max P.4 mmHg MV P1/2t: 93.7 msec Ao max P.8 mmHg MV V2 mean: 102.5 cm/sec Ao V2 mean: 184.6 cm/sec MV mean P.8 mmHg MV dec slope: 469.4 cm/sec2 Ao mean P.5 mmHg MV V2 VTI: 55.5 cm MVA(P1/2t): 2.3 cm2 Ao V2 VTI: 64.4 cm MVA(VTI): 1.5 cm2 JOANIE(I,D): 1.3 cm2 JOANIE(V,D): 1.3 cm2 LV V1 max: 109.3 cm/sec SV(LVOT): 84.9 ml PA V2 max: 154.1 cm/sec LV V1 max P.8 mmHg LV V1 mean P.5 mmHg LV V1 mean: 73.2 cm/sec LV V1 VTI: 27.5 cm Interpretation Summary Normal LV size. Moderate concentric left ventricular hypertrophy. Left ventricular systolic function is normal. The estimated ejection fraction is 60 %. Stage 1 diastolic dysfunction. Bioprosthetic aortic valve. Mild aortic stenosis. Ordering Physician: Kaity Kan Referring Physician: Juliano Bowles Performed By: Gareth Briceno RCS
== END ==
PROVIDERS: PCP Family Medicine; Referring Provider Physician Assistant Medical; Visit Provider Physician Assistant Medical
DX: I65.23 Occlusion and stenosis of bilateral carotid arteries (principal); R06.02 Shortness of breath; R06.00 Dyspnea, unspecified
CPT/HCPCS: 93306; 93880; Q9957; A4216; C8929

== ENCOUNTER → 2020-11-30 09:11 | Outpatient (CLI) | payer MEDICARE, OTHER, SELFPAY ==
[2020-11-23 09:19] VITALS: BMI 40.5
--- NOTE | 2020-11-30 12:36 | PFT_ITS ---
INTRODUCTION: The patient is a 70-year-old male that presents for pulmonary function studies secondary to a diagnosis of dyspnea. Respiratory therapy reports good patient effort. Bronchodilators were used during testing. INTERPRETATION: Forced expiration spirometry demonstrates no evidence of a large airways obstructive ventilatory defect. There was no significant response to aerosolized bronchodilators. Spirograms are of good quality and plateau normally. Body plethysmography was performed and reveals a decreased TLC to 5.17 L, 74% of predicted, indicative of a mild restrictive ventilatory impairment. Diffusing capacity by single breath CO is within normal limits. IMPRESSION: Isolated mild restrictive ventilatory impairment, likely secondary to body habit us. Diffusing capacity is within normal limits.
== END ==
PROVIDERS: PCP Family Medicine; Referring Provider Physician Assistant Medical; Visit Provider Physician Assistant Medical
DX: R06.00 Dyspnea, unspecified (principal)
CPT/HCPCS: 94060; 94726; 94729

== ENCOUNTER 2020-12-22 18:25 | Observation (INO) | payer MEDICARE, OTHER, SELFPAY ==
[2020-11-23 09:19] VITALS: BMI 40.5
[2020-12-22 18:27] VITALS: BP 157/65; PULSE 62; RESP 17; TEMP 36.5; O2SAT 100; BMI 41.8
[2020-12-22 18:30] VITALS: BP 153/64; PULSE 53; RESP 20; TEMP 36.5; O2SAT 100
--- NOTE | 2020-12-22 18:34 | EKG12_ITS ---
Test Reason : WEAKNESS Blood Pressure : / mmHG Vent. Rate : 053 BPM Atrial Rate : 053 BPM P-R Int : 218 ms QRS Dur : 184 ms QT Int : 520 ms P-R-T Axes : 018 015 131 degrees QTc Int : 487 ms Sinus bradycardia with 1st degree A-V block Left bundle branch block Abnormal ECG Confirmed by AMY LOPEZ, MICHELLE ([id number]), school photograph editor SASCHA RAMIREZ ([id number]) on 12/28/2020 2:14:46 PM Referred By: Confirmed By:MICHELLE REYES MD
--- NOTE | 2020-12-22 18:44 | ED.VIS.GEN ---
History of Present Illness Informant: Patient, Family, Transfer Pumper Narrative: 70-year-old male states that approximately 5:00 he is on the computer when he suddenly felt his heart was beating irregularly. He states that it was not racing and is not having pain he just felt that it was irregularly beating. He states that he felt fatigue and lightheadedness. Those symptoms are continuing. Prehospital EKG shows a sinus bradycardia with a left bundle branch block. He has had quadruple bypass and aortic valve replacement at [facility] in the past. No nausea or vomiting or diarrhea. No change in chronic dyspnea. Patient notes the last time he had something to eat was at breakfast. (It is now 1830). Last heart catheterization in 2019 and was negative. <Tru Gonzalez - Last Filed: 12/22/20 21:39> <Edenilson Monroy - Last Filed: 12/22/20 23:08> Chief Complaint: Weakness - Past Medical History (1) S/P aortic valve replacement with bioprosthetic valve Status: Chronic Comment: KYLIE to LAD, right radial artery to distal RCA, left radial artery sequenced first to the OM-3 then to the OM-4 (open right and left radial artery harvest, open bilateral lesser SVG harvest); replacement of the aortic valve with a 23mm St[employer] Niko Trifecta bovine pericardial aortic valve, colosure of atrial septal defect and a septal aneurysm of the interatrial septum. Per Dr. Rob Fernandez, [facility] Main [place]. (2) S/P CABG x 4 Status: Chronic Comment: KYLIE to LAD, right radial artery to distal RCA, left radial artery sequenced first to the OM-3 then to the OM-4 (open right and left radial artery harvest, open bilateral lesser SVG harvest); replacement of the aortic valve with a 23mm St. Niko Trifecta bovine pericardial aortic valve, colosure of atrial septal defect and a septal aneurysm of the interatrial septum. Per Dr. Rob Fernandez, [facility]. (3) Carotid artery stenosis Status: Chronic Comment: 50-69% bilaterally per u/s done 06/20/2018 (4) Essential hypertension Status: Chronic (5) HLD (hyperlipidemia) Status: Chronic (6) Diabetes mellitus, type II Status: Chronic (7) Morbid obesity Status: Chronic <Tru Gonzalez - Last Filed: 12/22/20 21:39> Past Medical History Past Medical History: - Surgical History: - - Tonsillectomy, urethral dilation secondary to strictures, CABG ?4. Lives: With Family Smoking Status: Never smoker Drugs: None - Family History Maternal Family History: Family History (Last Reviewed 11/23/20 @ 11:33 by Kaity REYES, PA) Father CAD (coronary artery disease) Family History: Reports: - - Patient denies any marked maternal or paternal family history including heart disease, diabetes, cancer. Paternal Family History: Family History (Last Reviewed 11/23/20 @ 11:33 by Kaity REYES, PA) Father CAD (coronary artery disease) Family History: Reports: - - Patient denies any marked maternal or paternal family history including heart disease, diabetes, cancer. <Tru Gonzalez - Last Filed: 12/22/20 21:39> - Family History Maternal Family History: Family History (Last Reviewed 11/23/20 @ 11:33 by Kaity REYES, PA) Father CAD (coronary artery disease) Paternal Family History: Family History (Last Reviewed 11/23/20 @ 11:33 by Kaity REYES, PA) Father CAD (coronary artery disease) <Edenilson Monroy - Last Filed: 12/22/20 23:08> - Allergies and Home Meds Allergies/Adverse Reactions: Allergies codeine Adverse Reaction (Intermediate, Verified 12/22/20 18:34) constipation Primary Care Physician: Juliano Bowles MD [Primary Care Provider] - Review of Systems General: Reports: Malaise. Denies: Chills, Fever, Sweats Eyes: Denies: Visual changes - bilaterally, Diplopia ENT: Denies: Rhinorrhea, Sore throat Cardiovascular: Reports: Palpitations. Denies: Chest pain Respiratory: Denies: Dyspnea, Cough, Dyspnea on exertion Gastrointestinal: Denies: Abdominal pain, Nausea, Vomiting, Diarrhea, Melena, Hematochezia Genitourinary: Denies: Dysuria, Hematuria, Frequency Musculoskeletal: Reports: Swelling. Denies: Back pain, Extremity Pain Skin: Denies: Rash, Wounds Neurological: Denies: Headache, Weakness, Numbness <Tru Gonzalez - Last Filed: 12/22/20 21:39> Physical Exam Vital Signs/Narrative: Vital Signs Temp Pulse Resp BP Pulse Ox 12/22/20 18:30 97.7 F L 53 L 20 H 153/64 H 100 12/22/20 18:27 97.7 F L 62 17 157/65 H 100 Inital Vital Signs reviewed: Yes General: Well nourished, Well developed, No Acute Distress Head: Normocephalic, Atraumatic Eyes: Perrl, EOMI ENT: Moist mucous membranes, No rhinorrhea Neck: Supple, Nontender Cardiovascular: Regular rate, No murmurs, Bradycardia Respiratory: No distress, CTA bilaterally, Chest nontender Abdomen: Soft, Nontender, Nondistended, Normal bowel sounds Back: Nontender, Normal Inspection Extremities: Nontender, Edema - No change from baseline per patient Skin: Normal color, No rash Neurological: Alert, Oriented x3, Cranial nerves II-XII grossly intact, Normal Strength, Normal Sensation Psychological: Normal affect, Normal Mood <Tru Gonzalez - Last Filed: 12/22/20 21:39> Vital Signs/Narrative: Vital Signs Pulse Pulse Pulse Pulse Resp BP BP 12/22/20 22:30 50 L 12 145/56 H 12/22/20 20:29 49 L 15 138/68 H 12/22/20 19:58 54 L 56 L 65 138/55 H BP BP Pulse Ox 12/22/20 22:30 98 12/22/20 20:29 100 12/22/20 19:58 154/62 H 145/68 H <Edenilson Monroy - Last Filed: 12/22/20 23:08> Diagnostic/Tx/Re-eval Clinical Impression(s) from Imaging Studies Chest X-Ray 12/22/20 18:48 IMPRESSION: No acute cardiopulmonary pathology Electronically Signed: Dallas Turner MD at 19:30 EST , Service support , Laboratory Last Values WBC 7.1 K/mm3 (4.4-11.0) 12/22/20 18:30 RBC 4.99 M/mm3 (4.6-6.2) 12/22/20 18:30 Hgb 14.0 g/dL (13.0-16.5) 12/22/20 18:30 Hct 41.8 % (40-54) 12/22/20 18:30 MCV 83.8 fL (80-94) 12/22/20 18:30 MCH 28.1 pg (27.0-32.0) 12/22/20 18:30 MCHC 33.5 g/dL (32-36) 12/22/20 18:30 RDW Std Deviation 40.2 fl (35.1-43.9) 12/22/20 18:30 RDW Coeff of Senia 13.2 % (11.6-14.6) 12/22/20 18:30 Plt Count 227 K/mm3 (150-450) 12/22/20 18: MPV 11.4 fl (6.2-12.0) 12/22/20 18:30 Immature Gran % (Auto) 0.300 % (0.0-0.9) 12/22/20 18:30 Neut % (Auto) 50.5 % (47-70) 12/22/20 18:30 Lymph % (Auto) 36.2 % (19-41) 12/22/20 18:30 Terrell % (Auto) 9.2 % (0-10) 12/22/20 18:30 Eos % (Auto) 3.4 % (0-5) 12/22/20 18:30 Baso % (Auto) 0.4 % (0-1) 12/22/20 18:30 Absolute Neuts (auto) 3.6 X10^3/uL (2.0-7.7) 12/22/20 18:30 Absolute Lymphs (auto) 2.57 X10^3/uL (0.83-4.51) 12/22/20 18:30 Nucleated RBC % 0 % (0-5) 12/22/20 18:30 Sodium 140 mmol/L (136-145) 12/22/20 18:30 Potassium 3.7 mmol/L (3.5-5.1) 12/22/20 18:30 Chloride 105 mmol/L (98-107) 12/22/20 18:30 Carbon Dioxide 28.0 mmol/L (21.0-32.0) 12/22/20 18:30 Anion Gap 7 (5-15) 12/22/20 18:30 BUN 13 mg/dL (7-18) 12/22/20 18:30 Creatinine 1.08 mg/dL (0.70-1.30) 12/22/20 18:30 Estim Creat Clear Calc 68.86 ml/min 12/22/20 18:30 Est GFR (MDRD) Af Amer 87 mL/min (>60) 12/22/20 18:30 Est GFR (MDRD) Non-Af 72 mL/min (>60) 12/22/20 18:30 BUN/Creatinine Ratio 12.0 RATIO (10-20) 12/22/20 18:30 Glucose 131 mg/dL (74-106) H 12/22/20 18:30 Calcium 9.0 mg/dL (8.5-10.1) 12/22/20 18:30 Total Bilirubin 0.70 mg/dL (0.20-1.00) 12/22/20 18:30 AST 21 U/L (15-37) 12/22/20 18:30 ALT 39 U/L (16-61) 12/22/20 18:30 Alkaline Phosphatase 81 U/L (45-117) 12/22/20 18:30 Troponin I < 0.015 ng/mL (<0.045) 12/22/20 18:30 B-Natriuretic Peptide 175.3 pg/mL (0-100) H 12/22/20 18:30 Total Protein 7.4 g/dL (6.4-8.2) 12/22/20 18:30 Albumin 3.9 g/dL (3.2-5.0) 12/22/20 18:30 Globulin 3.5 g/dL (2.2-4.2) 12/22/20 18:30 Albumin/Globulin Ratio 1.1 RATIO (0.9-2.4) 12/22/20 18:30 - EKG Initial EKG Interpretation: Sinus Bradycardia - EKG demonstrates a sinus bradycardia with a first-degree AV block with left bundle branch block. Left bundle branch block is old. - Medical Decision Making Upon repeat examination the patient is feeling better. He states he is no longer having his lightheaded symptoms and his palpitations is improved. Initial troponin is negative and this is about a 1 hour troponin from the onset of symptoms. Repeat EKG shows no significant ACS changes. Delta troponin was ordered. If this is negative patient will be discharged home. <Tru Gonzalez - Last Filed: 12/22/20 21:39> - Medical Decision Making Took over care of this patient. His repeat troponin returned 0.020, up from less than 0.015. Although this is still within the normal range, it is elevated compared with his initial negative troponin, suggesting the possibility that the patient had anginal equivalent earlier. This is not specific for acute coronary syndrome, but given this I think it would be reasonable to admit him in order to rule it out. Additional history from the patient, within the last couple days he was at a basketball game and when he climbed a couple of the bleachers he was very dyspneic with very little exertion, although he was able to recover at rest and had no chest discomfort with it. <Edenilson Monroy - Last Filed: 12/22/20 23:08> ED Disposition <Tru Gonzalez - Last Filed: 12/22/20 21:39> <Edenilson Monroy - Last Filed: 12/22/20 23:08> - Plan for ED Patient: Disposition: Acute Care Hospital [facility] Diagnosis: Palpitations, Near syncope Referrals: Juliano Bowles MD [Primary Care Provider] -
--- NOTE | 2020-12-22 18:48 | RAD_ITS ---
STUDY: X-RAY CHEST REASON FOR EXAM: Male, 70 years old. palpitations TECHNIQUE: AP portable COMPARISON: 11/25/2019 FINDINGS: Less than optimal inspiratory effort is seen however the lungs are clear. There is no demonstrated pleural abnormality. The heart is enlarged.. Normal mediastinum and jane. Normal visualized pulmonary arteries. Normal visualized aortic arch and descending thoracic aorta. Postop change status post median sternotomy and CABG Dorsal spine demonstrates scoliosis and degenerative change. Normal visualized ribs, clavicles, and shoulders. There is no demonstrated abnormality of the visualized soft tissue structures of the upper abdomen. RAD/Chest 1 View (Portable) IMPRESSION: No acute cardiopulmonary pathology Electronically Signed: Dallas Turner MD at 19:30 EST , Service support ,
[2020-12-22 18:50] LABS: Absolute Lymphocyte Count 2.57 X10^3/uL (0.83-4.51); Absolute Neutrophil Count 3.6 X10^3/uL (2.0-7.7); Basophil# 0.03 X10^3/uL; Basophil% 0.4 % (0-1); Eosinophil# 0.24 X10^3/uL; Eosinophils% 3.4 % (0-5); Hematocrit 41.8 % (40-54); Lymphocyte # 2.57 X10^3/ul (4.0); Lymphocyte % 36.2 % (19-41); Mean Corp Hgb Conc 33.5 g/dL (32-36); Mean Corpuscular Hgb 28.1 pg (27.0-32.0); Mean Corpuscular Volume 83.8 fL (80-94); Mean Platelet Vol. 11.4 fl (6.2-12.0); Monocyte# 0.65 X10^3/uL; Monocyte% 9.2 % (0-10); NRBC Flagged by Analyzer 0 % (0-5); Neutrophil # 3.58 X10^3/uL (2.7-7.7); Neutrophil % 50.5 % (47-70); Platelet Count 227 K/mm3 (150-450); RBC Distribution Width CV 13.2 % (11.6-14.6); RBC Distribution Width SD 40.2 fl (35.1-43.9); Red Blood Count 4.99 M/mm3 (4.6-6.2); White Blood Count 7.1 K/mm3 (4.4-11.0)
[2020-12-22 19:02] LABS: ALB/GLOB Ratio 1.1 RATIO (0.9-2.4); AST(SGOT) 21 U/L (15-37); Alanine Aminotransfer ALT/SGPT 39 U/L (16-61); Albumin, Serum 3.9 g/dL (3.2-5.0); Alkaline Phosphatase 81 U/L (45-117); Anion Gap 7 (5-15); BUN 13 mg/dL (7-18); Chloride 105 mmol/L (98-107); Creatinine, Serum 1.08 mg/dL (0.70-1.30); EST Glomerular Filtration Rate 72 mL/min (>60); Est Glom Filt Rate - Afr Amer 87 mL/min (>60); Estimated Creatinine Clearance 68.86 ml/min; Globulin 3.5 g/dL (2.2-4.2); Glucose 131 mg/dL (74-106); Potassium 3.7 mmol/L (3.5-5.1); Protein, Total 7.4 g/dL (6.4-8.2); Sodium Level 140 mmol/L (136-145)
[2020-12-22 19:06] LABS: BNP,B-Type NATRIURETIC PEPTIDE 175.3 pg/mL (0-100)
--- NOTE | 2020-12-22 19:47 | EKG12_ITS ---
Test Reason : REPEAT Blood Pressure : / mmHG Vent. Rate : 053 BPM Atrial Rate : 053 BPM P-R Int : 194 ms QRS Dur : 176 ms QT Int : 494 ms P-R-T Axes : 021 043 139 degrees QTc Int : 463 ms Sinus bradycardia with Premature atrial complexes Left bundle branch block Abnormal ECG Confirmed by AMY LOPEZ, MICHELLE ([id number]), desk editor SASCHA RAMIREZ ([id number]) on 12/28/2020 2:14:58 PM Referred By: Confirmed By:MICHELLE REYES MD
[2020-12-22 19:58] VITALS: BP 138/55; BP 145/68; BP 154/62; PULSE 54; PULSE 56; PULSE 65
[2020-12-22 20:29] VITALS: BP 138/68; PULSE 49; RESP 15; O2SAT 100
[2020-12-22 22:30] VITALS: BP 145/56; PULSE 50; RESP 12; O2SAT 98
--- NOTE | 2020-12-22 23:06 | PCM.HP.STD ---
Problem List (1) Palpitations Status: Acute (2) Abnormal stress echo Status: Chronic (3) S/P aortic valve replacement with bioprosthetic valve Status: Chronic Comment: KYLIE to LAD, right radial artery to distal RCA, left radial artery sequenced first to the OM-3 then to the OM-4 (open right and left radial artery harvest, open bilateral lesser SVG harvest); replacement of the aortic valve with a 23mm St[employer] Niko Trifecta bovine pericardial aortic valve, colosure of atrial septal defect and a septal aneurysm of the interatrial septum. Per Dr. Rob Fernandez, [facility]. (4) History of aortic valve stenosis Status: Resolved Comment: Replaced 02/10/2012 (5) S/P CABG x 4 Status: Chronic Comment: KYLIE to LAD, right radial artery to distal RCA, left radial artery sequenced first to the OM-3 then to the OM-4 (open right and left radial artery harvest, open bilateral lesser SVG harvest); replacement of the aortic valve with a 23mm St[employer] Niko Trifecta bovine pericardial aortic valve, colosure of atrial septal defect and a septal aneurysm of the interatrial septum. Per Dr. Rob Fernandez, [facility]. (6) Atherosclerosis of coronary artery of [place] heart without angina pectoris Status: Chronic Comment: KYLIE to LAD, right radial artery to distal RCA, left radial artery sequenced first to the OM-3 then to the OM-4 (open right and left radial artery harvest, open bilateral lesser SVG harvest); replacement of the aortic valve with a 23mm St[employer] Niko Trifecta bovine pericardial aortic valve, colosure of atrial septal defect and a septal aneurysm of the interatrial septum. Per Dr. Rob Fernandez, [facility]. (7) Carotid artery stenosis Status: Chronic Comment: 50-69% bilaterally per u/s done 06/20/2018 (8) Essential hypertension Status: Chronic (9) Syncope Status: Inactive Qualifiers: Syncope type: unspecified Qualified Code(s): R55 - Syncope and collapse (10) HLD (hyperlipidemia) Status: Chronic (11) Diabetes mellitus, type II Status: Chronic (12) Morbid obesity Status: Chronic History of Present Illness Date of Admission: 12/22/20 Chief Complaint: Palpitations The patient is a 70 year old M with a significant history of aortic valve replacement and quadruple bypass in 2011 who presents to emergency department with palpitation that started about an hour and 45 minutes prior to presentation. Associated with his symptoms is dyspnea on mild exertion and lightheadedness. His shortness of breath is reminiscent of his previous history of heart attack. Initial troponin was negative. Follow-up troponin was still negative but because it was slightly increased from first troponin ED doc recommended that patient be admitted. Past Medical History Past Medical History (Chronic Problems): Chronic Problems (Last Reviewed 12/23/20 @ 00:[address] Narendra Rendon MD) Abnormal stress echo (Chronic) S/P aortic valve replacement with bioprosthetic valve (Chronic 02/10/12) KYLIE to LAD, right radial artery to distal RCA, left radial artery sequenced first to the OM-3 then to the OM-4 (open right and left radial artery harvest, open bilateral lesser SVG harvest); replacement of the aortic valve with a 23mm St. Niko Trifecta bovine pericardial aortic valve, colosure of atrial septal defect and a septal aneurysm of the interatrial septum. Per Dr. Rob Fernandez, [facility]. 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 Niko Trifecta bovine pericardial aortic valve, colosure of atrial septal defect and a septal aneurysm of the interatrial septum. Per Dr. Rob Fernandez, [facility] Main [place]. Atherosclerosis of coronary artery of [place] heart without angina pectoris (Chronic) KYLIE to LAD, right radial artery to distal RCA, left radial artery sequenced first to the OM-3 then to the OM-4 (open right and left radial artery harvest, open bilateral lesser SVG harvest); replacement of the aortic valve with a 23mm St. Niko Trifecta bovine pericardial aortic valve, colosure of atrial septal defect and a septal aneurysm of the interatrial septum. Per Dr. Rob Fernandez, [facility]. Carotid artery stenosis (Chronic) 50-69% bilaterally per u/s done 06/20/2018 Essential hypertension (Chronic) HLD (hyperlipidemia) (Chronic) Diabetes mellitus, type II (Chronic) Morbid obesity (Chronic) Medical History: Medical History (Last Reviewed 12/23/20 @ 02:[address] Narendra Rendon MD) Abnormal stress echo (Chronic) R94.39 History of aortic valve stenosis (Resolved) Z86.79 Replaced 02/10/2012 Atherosclerosis of coronary artery of [place] heart without angina pectoris (Chronic) I25.10 KYLIE to LAD, right radial artery to distal RCA, left radial artery sequenced first to the OM-3 then to the OM-4 (open right and left radial artery harvest, open bilateral lesser SVG harvest); replacement of the aortic valve with a 23mm St[employer] Niko Trifecta bovine pericardial aortic valve, colosure of atrial septal defect and a septal aneurysm of the interatrial septum. Per Dr. Rob Fernandez, [facility] [place]. Carotid artery stenosis (Chronic) I65.29 50-69% bilaterally per u/s done 06/20/2018 Essential hypertension (Chronic) I10 HLD (hyperlipidemia) (Chronic) E78.5 Diabetes mellitus, type II (Chronic) E11.9 Morbid obesity (Chronic) E66.01 Allergies codeine Adverse Reaction (Intermediate, Verified 12/22/20 18:34) constipation Home Medications: Ambulatory Orders Medication Instructions Recorded Aspirin 162 mg PO DAILY 06/19/18 Lisinopril [Zestril] 10 mg PO DAILY 06/19/18 Metoprolol Tartrate 25 mg PO BID 06/19/18 Multivitamins,Ther W-Minerals 1 tab PO DAILY 06/19/18 [Multivitamin With Minerals ([facility])] Clayton-3 Fatty Acids/Fish Oil 1 ea PO QHS 06/19/18 [[place]ton-3 1,000 mg Softgel] Rosuvastatin Calcium [Crestor] 40 mg PO DAILY 06/19/18 albuterol sulfate 90 mcg/actuation 2 puff INHALATION Q4H PRN PRN g 07/10/19 aerosol inhaler glimepiride 2 mg tablet 2 mg PO BID tab 07/10/19 Surgical History: Surgical History (Last Reviewed 12/23/20 @ 02:[address] Narendra Rendon MD) S/P aortic valve replacement with bioprosthetic valve (Chronic) Onset Date: 02/10/12 Z95.3 KYLIE to LAD, right radial artery to distal RCA, left radial artery sequenced first to the OM-3 then to the OM-4 (open right and left radial artery harvest, open bilateral lesser SVG harvest); replacement of the aortic valve with a 23mm St[employer] Niko Trifecta bovine pericardial aortic valve, colosure of atrial septal defect and a septal aneurysm of the interatrial septum. Per Dr. Rob Fernandez, [facility]. S/P CABG x 4 (Chronic) Onset Date: 02/10/12 Z95.1 KYLIE to LAD, right radial artery to distal RCA, left radial artery sequenced first to the OM-3 then to the OM-4 (open right and left radial artery harvest, open bilateral lesser SVG harvest); replacement of the aortic valve with a 23mm St[employer] Niko Trifecta bovine pericardial aortic valve, colosure of atrial septal defect and a septal aneurysm of the interatrial septum. Per Dr. Rob Fernandez, [facility]. History of tonsillectomy Z90.89 Surgical History: - - Tonsillectomy, urethral dilation secondary to strictures, CABG ?4. Psychiatric History: No pertinent psych hx Lives: With Family Smoking Status: Never smoker Drugs: None - *Family History Maternal Family History: Family History (Last Reviewed 12/23/20 @ 02:[address] Narendra Rendon MD) Father CAD (coronary artery disease) History Items: - Paternal Family History: Family History (Last Reviewed 12/23/20 @ 02:[address] Narendra Rendon MD) Father CAD (coronary artery disease) History Items: - Review of Systems Constitutional: Reports: Weakness. Denies: Chills, Fever, Weight Change HEENT: Denies: Head Aches, Sinus Congestion, Sinus Drainage Cardiovascular: Reports: Light Headedness. Denies: Chest Pain, Palpitations Respiratory: Reports: Shortness of breath upon exertion. Denies: Cough, Sputum production Gastrointestinal: Denies: Abdominal Pain, Nausea, Vomiting Genitourinary: Denies: Dysuria Musculoskeletal: Denies: Joint Pain, Joint Tenderness Skin: Denies: Rash, Wounds Neurological: Denies: Numbness, Tingling, Focal weakness Psychiatric: Denies: Anxiety, Depression, Homicidal Ideations, Suicidal Ideations Hematologic/ Lymphatic: Denies: Easy Bruising, Easy Bleeding VTE Information - Inpt Only VTE Present on Admission: No VTE Mechan Device Prophylaxis: SCD's VTE Pharm Prophylaxis ordered?: No Patient Problems: Active and Suspected Problems (Last Reviewed 12/23/20 @ 00:[address] Narendra Rendon MD) Palpitations (Acute) - Physical Exam Vitals/I&O's: Vital Signs Temp Pulse Resp BP Pulse Ox 97.7 F L 50 L 12 145/56 H 98 12/22/20 18:30 12/22/20 22:30 12/22/20 22:30 12/22/20 22:30 12/22/20 22:30 Oxygen Delivery Method Room Air Weight: 140.1 kg Body Mass Index (BMI) 41.8 General: Alert, Oriented x3, Cooperative HEENT: Atraumatic, PERRLA, EOMI, Normocephalic Neck: Supple, No JVD, Negative Carotid Bruits Lungs: Clear to auscultation, Normal air movement Cardiovascular: Normal S1, Normal S2, No murmurs, Bradycardic, Murmur Abdomen: Bowel Sounds Present, Soft, Non Tender Extremities: No edema, Capillary Refill Less than 3 Seconds Skin: No rashes, No breakdown Musculoskeletal: No Tenderness to Palpation of Joints or Extremities Neurological: Cranial nerves II-XII grossly intact Psych/Mental Status: Normal Affect, Appropriate Laboratory Results 12/22/20 18:30: WBC 7.1, RBC 4.99, Hgb 14.0, Hct 41.8, MCV 83.8, MCH 28.1, MCHC 33.5, RDW Std Deviation 40.2, RDW Coeff of Esnia 13.2, Plt Count 227, MPV 11.4, Immature Gran % (Auto) 0.300, Neut % (Auto) 50.5, Lymph % (Auto) 36.2, [place] % (Auto) 9.2, Eos % (Auto) 3.4, Baso % (Auto) 0.4, Absolute Neuts (auto) 3.6, Absolute Lymphs (auto) 2.57, Nucleated RBC % 0 12/22/20 18:30: Sodium 140, Potassium 3.7, Chloride 105, Carbon Dioxide 28.0, Anion Gap 7, BUN 13, Creatinine 1.08, Estim Creat Clear Calc 68.86, Est GFR (MDRD) Af Amer 87, Est GFR (MDRD) Non-Af 72, BUN/Creatinine Ratio 12.0, Glucose 131 H, Calcium 9.0, Total Bilirubin 0.70, AST 21, ALT 39, Alkaline Phosphatase 81, Troponin I < 0.015, Total Protein 7.4, Albumin 3.9, Globulin 3.5, Albumin/Globulin Ratio 1.1 12/22/20 18:30: B-Natriuretic Peptide 175.3 H 12/22/20 21:33: Troponin I 0.020 Assessment/Plan All Active Problems (Last Reviewed 12/23/20 @ 00:[address] Narendra Rendon MD) Palpitations (Acute) History of aortic valve stenosis (Resolved) SIMON (acute kidney injury) (Resolved) Aortic stenosis (Resolved) CAP (community acquired pneumonia) (Resolved) The patient is a 70 year old M with a significant history of aortic valve replacement and quadruple bypass in 2011 who presents emergency department with palpitation; lightheadedness and shortness of breath. Palpitations, lightheadedness and shortness of breath Place on a monitored bed at PCU Radiologist impression of chest x-ray: No acute cardiopulmonary pathology. Actual CXR image was independently visualized. No acute cardiopulmonary process was noted. Patient had echocardiogram on 11/27/2020. Echocardiogram showed moderate concentric left ventricular hypertrophy. Left ventricular systolic function was normal with an estimated ejection fraction of 60%. Patient had a stage I diastolic dysfunction. Bioprosthetic aortic valve was noted. There was mild valvular abnormalities. Right ventricular systolic pressure was unable to be estimated. Actual EKG tracing was independently visualized. EKG tracing showed left bundle branch block with bradycardia. Previous EKG was visualized. There was no marked difference between previous EKG and current EKG. Patient had stress echocardiogram on 08/09/2019 which showed final left ventricular ejection fraction of 35%. There was ischemia by electrographic criteria. Left heart catheterization showed significant coronary artery disease and patent grafts. Medical therapy was recommended. ASA 81 mg p.o. daily continued We will check lipid panel. Serial cardiac enzymes ordered Echocardiogram Stress test in the AM if the cardiac enzymes are negative Bradycardia Bradycardia into the 40s. Review of old records showed previous EKG with bradycardia but with heart rate in the high 50s. Hold metoprolol for now. Consider tapering metoprolol dose if other work-up is negative. Diabetes mellitus Patient with mild hyperglycemia on presentation Hold home glimepiride. Accu-Chek with correction scale insulin ordered. Hypertension Blood pressure is not within goal Lisinopril continued. Metoprolol on hold secondary to bradycardia with symptoms. As needed hydralazine ordered. Trend blood pressure and adjust blood pressure medications. DVT prophylaxis SCD while planning for cardiac work up for chest pain OBSV E&M: [id number] Initial observation care L2
[2020-12-22 23:14] VITALS: BP 154/65; PULSE 57; RESP 12; TEMP 36.7; O2SAT 99
[2020-12-23] VITALS (9 sets, daily range): BP systolic 126–156; BP diastolic 70–86; PULSE 55–64; RESP 16; TEMP 36.3–36.5; O2SAT 94–98; BMI 40.8
[2020-12-23 01:10] LABS: Bedside Glucose 139 mg/dL (70-110)
--- NOTE | 2020-12-23 05:00 | EKG12_ITS ---
Test Reason : AM EKG Blood Pressure : / mmHG Vent. Rate : 057 BPM Atrial Rate : 057 BPM P-R Int : 204 ms QRS Dur : 176 ms QT Int : 486 ms P-R-T Axes : 016 006 121 degrees QTc Int : 473 ms Sinus bradycardia with Premature atrial complexes Left bundle branch block Abnormal ECG When compared with ECG of 22-DEC-2020 21:35, MANUAL COMPARISON REQUIRED, DATA IS UNCONFIRMED Confirmed by DIANA LOPEZ, JO ([id number]), television news video editor SANTI LARA ([id number]) on 12/24/2020 1:20:35 PM Referred By: MARY Confirmed By:JO ORTIZ MD
[2020-12-23 05:45] LABS: Absolute Lymphocyte Count 2.42 X10^3/uL (0.83-4.51); Absolute Neutrophil Count 4.4 X10^3/uL (2.0-7.7); Basophil# 0.03 X10^3/uL; Basophil% 0.4 % (0-1); Eosinophil# 0.25 X10^3/uL; Eosinophils% 3.2 % (0-5); Hematocrit 38.8 % (40-54); Hemoglobin 12.7 g/dL (13.0-16.5); Lymphocyte # 2.42 X10^3/ul (4.0); Lymphocyte % 31.3 % (19-41); Mean Corp Hgb Conc 32.7 g/dL (32-36); Mean Corpuscular Hgb 27.8 pg (27.0-32.0); Mean Corpuscular Volume 84.9 fL (80-94); Mean Platelet Vol. 11.1 fl (6.2-12.0); Monocyte# 0.62 X10^3/uL; NRBC Flagged by Analyzer 0 % (0-5); Neutrophil % 56.8 % (47-70); Platelet Count 189 K/mm3 (150-450); RBC Distribution Width CV 13.1 % (11.6-14.6); RBC Distribution Width SD 39.9 fl (35.1-43.9); Red Blood Count 4.57 M/mm3 (4.6-6.2); White Blood Count 7.7 K/mm3 (4.4-11.0)
[2020-12-23 06:17] LABS: Anion Gap 6 (5-15); BUN 12 mg/dL (7-18); BUN/Creat Ratio 12.7 RATIO (10-20); Calcium,Total 8.6 mg/dL (8.5-10.1); Chloride 109 mmol/L (98-107); Cholesterol 169 mg/dL (200); Creatinine, Serum 0.95 mg/dL (0.70-1.30); EST Glomerular Filtration Rate 83 mL/min (>60); Est Glom Filt Rate - Afr Amer 101 mL/min (>60); Estimated Creatinine Clearance 78.28 ml/min; Glucose 123 mg/dL (74-106); High Density Lipoprotein 39 mg/dL; Potassium 3.7 mmol/L (3.5-5.1); Sodium Level 141 mmol/L (136-145); Thyroid Stim Hormone (TSH) 3.13 uIU/mL (0.358-3.74); Triglycerides 223 mg/dL; Very Low Density Lipoprotein 45 mg/dL (5-40)
[2020-12-23] MEDS: Aspirin 81 MG TAB.CHEW 162 MG PO (06:37)
[2020-12-23] MEDS: Lisinopril 10 MG Tablet PO (06:37)
[2020-12-23 06:46] LABS: Bedside Glucose 137 mg/dL (70-110)
--- NOTE | 2020-12-23 10:41 | PCM.DC ---
- Discharge Diagnoses Current Active Problems: Current Active and Chronic Problems (Last Reviewed 12/23/20 @ 02:[address] Narendra Rendon MD) Palpitations (Acute) Abnormal stress echo (Chronic) S/P aortic valve replacement with bioprosthetic valve (Chronic 02/10/12) KYLIE to LAD, right radial artery to distal RCA, left radial artery sequenced first to the OM-3 then to the OM-4 (open right and left radial artery harvest, open bilateral lesser SVG harvest); replacement of the aortic valve with a 23mm [employer] Niko Trifecta bovine pericardial aortic valve, colosure of atrial septal defect and a septal aneurysm of the interatrial septum. Per Dr. Rob Fernandez, [facility]. 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 Niko Trifecta bovine pericardial aortic valve, colosure of atrial septal defect and a septal aneurysm of the interatrial septum. Per Dr. Rob Fernandez, [facility] Main [place]. Atherosclerosis of coronary artery of [place] heart without angina pectoris (Chronic) KYLIE to LAD, right radial artery to distal RCA, left radial artery sequenced first to the OM-3 then to the OM-4 (open right and left radial artery harvest, open bilateral lesser SVG harvest); replacement of the aortic valve with a 23mm St[employer] Niko Trifecta bovine pericardial aortic valve, colosure of atrial septal defect and a septal aneurysm of the interatrial septum. Per Dr. Rob Fernandez, [facility]. Carotid artery stenosis (Chronic) 50-69% bilaterally per u/s done 06/20/2018 Essential hypertension (Chronic) HLD (hyperlipidemia) (Chronic) Diabetes mellitus, type II (Chronic) Morbid obesity (Chronic) You will use the following diet at home:: Cardiac Discharge Activity: Return to Normal Activity Call your doctor if you observe: Shortness of breath, Dizziness, Fainting spells, Chest pain Allergies/Adverse Reactions: Allergies codeine Adverse Reaction (Intermediate, Verified 12/22/20 18:34) constipation Medications to take at Discharge Aspirin 162 mg PO DAILY 06/19/18 Lisinopril [Zestril] 10 mg PO DAILY 06/19/18 Multivitamins,Ther W-Minerals [Multivitamin With Minerals (BKC)] 1 tab PO DAILY 06/19/18 [place]-3 Fatty Acids/Fish Oil [[place]-3 1,000 mg Softgel] 1 ea PO QHS 06/19/18 Rosuvastatin Calcium [Crestor] 40 mg PO DAILY 06/19/18 albuterol sulfate 90 mcg/actuation aerosol inhaler 2 puff INHALATION Q4H PRN PRN g 07/10/19 glimepiride 2 mg tablet 2 mg PO BID tab 07/10/19 Metoprolol Tartrate [Lopressor (beta sandy)] 12.5 mg PO BID #30 tab 12/23/20 The following prescriptions were given: Metoprolol Tartrate [Lopressor (beta sandy)] 12.5 mg PO BID #30 tab Transmission Status: Pending to [facility]/pharmacy #[id number] Primary Care Physician: Juliano Bowles MD [Primary Care Provider] - Please follow up with your Primary Care Physician in: 1 Week Test Results: Test results from this visit will be discussed in further detail at your follow-up appointment, if applicable. Please Follow Up With: Kaity Kan, PA When: 2 Weeks Proposed Discharge Date: 12/23/20
[2020-12-23] MEDS: Multivitamins,Ther W-Minerals Tablet 1 TABLET PO (11:18)
[2020-12-23] MEDS: Insulin Lispro 100 UNIT/ML INSULN.PEN SC (11:18)
[2020-12-23 11:31] LABS: Bedside Glucose 215 mg/dL (70-110)
--- NOTE | 2020-12-23 12:20 | PHA.DC.MR ---
Pharmacy Service has performed discharge medication reconciliation for this patient. The patient's discharge medication list was reviewed for discrepancies and discrepancies were resolved. Home Medications Aspirin 162 mg PO DAILY 06/19/18 Lisinopril [Zestril] 10 mg PO DAILY 06/19/18 Metoprolol Tartrate 25 mg PO BID 06/19/18 Multivitamins,Ther W-Minerals [Multivitamin With Minerals (BKC)] 1 tab PO DAILY 06/19/18 [place]-3 Fatty Acids/Fish Oil [[place]-3 1,000 mg Softgel] 1 ea PO QHS 06/19/18 Rosuvastatin Calcium [Crestor] 40 mg PO DAILY 06/19/18 albuterol sulfate 90 mcg/actuation aerosol inhaler 2 puff INHALATION Q4H PRN PRN g 07/10/19 glimepiride 2 mg tablet 2 mg PO BID tab 07/10/19
--- NOTE | 2020-12-23 13:10 | DS.PCM_ITS ---
<Gloria Rios MACHINE TAILER - Last Filed: 12/23/20 13:49> Discharge Date and Diagnosis - Problem List Patient Problems: Active and Suspected Problems (Last Reviewed 12/23/20 @ 02:[address] Narendra Rendon MD) Palpitations (Acute) Date of Admission: 12/22/20 Date of Discharge: 12/23/20 - Primary Discharge Diagnosis Acute Problems: Active Problems (Last Reviewed 12/23/20 @ 02:[address] Narendra Rendon MD) 1. Bradycardia 2. Lightheadedness, shortness of breath-concerning for unstable angina. ACS ruled out. 3. CAD with history of quadruple bypass 4. Type 2 diabetes mellitus 5. Hypertension 6. Hyperlipidemia 7. History of aortic valve stenosis status post bioprosthetic valve replacement 8. Carotid artery stenosis 9. Morbid obesity - Secondary Discharge Diagnosis Chronic Problems: Chronic Problems (Last Reviewed 12/23/20 @ 02:[address] Narendra Rendon MD) Abnormal stress echo (Chronic) S/P aortic valve replacement with bioprosthetic valve (Chronic 02/10/12) KYLIE to LAD, right radial artery to distal RCA, left radial artery sequenced first to the OM-3 then to the OM-4 (open right and left radial artery harvest, open bilateral lesser SVG harvest); replacement of the aortic valve with a 23mm [employer] Niko Trifecta bovine pericardial aortic valve, colosure of atrial septal defect and a septal aneurysm of the interatrial septum. Per Dr. Rob Fernandez, [facility]. 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 Niko Trifecta bovine pericardial aortic valve, colosure of atrial septal defect and a septal aneurysm of the interatrial septum. Per Dr. Rob Fernandez, [facility]. Atherosclerosis of coronary artery of [place] heart without angina pectoris (Chronic) KYLIE to LAD, right radial artery to distal RCA, left radial artery sequenced first to the OM-3 then to the OM-4 (open right and left radial artery harvest, open bilateral lesser SVG harvest); replacement of the aortic valve with a 23mm [employer] Niko Trifecta bovine pericardial aortic valve, colosure of atrial septal defect and a septal aneurysm of the interatrial septum. Per Dr. Rob Fernandez, [facility] Main [place]. Carotid artery stenosis (Chronic) 50-69% bilaterally per u/s done 06/20/2018 Essential hypertension (Chronic) HLD (hyperlipidemia) (Chronic) Diabetes mellitus, type II (Chronic) Morbid obesity (Chronic) Hospital Course and Treatment Imaging Results: Diagnostic Data Chest X-Ray 12/22/20 18:48 IMPRESSION: No acute cardiopulmonary pathology Electronically Signed: Dallas Turner MD at 19:30 EST , Service support , Operations: None Procedures: Stress test Summary of Care Provided: The patient is a 70 year old M admitted 12/22/2020 due to palpitations and lightheadedness. 1. Bradycardia-heart rate noted to be in the 40s on admission. Patient appears to have chronic mild bradycardia. Beta-sandy held during admission and heart rate improved. Reduce home metoprolol regimen to 12.5 mg twice daily at discharge. Follow-up with cardiology in 2 weeks. 2. Lightheadedness, shortness of breath-concerning for unstable angina. Troponin negative. EKG without acute changes. ACS ruled out. Patient underwent nuclear stress test which was negative for ischemia. Mild reduced ejection fraction per stress test with gated ejection fraction 47%. Follow-up with cardiology in 2 weeks. 3. CAD with history of quadruple bypass-on aspirin, statin, metoprolol, lisinopril. Continue outpatient follow-up with cardiology. 4. Type 2 diabetes mellitus-continue home oral regimen. 5. Hypertension-stable, continue lisinopril, metoprolol. 6. Hyperlipidemia-continue statin. 7. History of aortic valve stenosis status post bioprosthetic valve replacement 8. Carotid artery stenosis-continue aspirin, statin. 9. Morbid obesity-encouraged diet and lifestyle modifications. Patient seen and examined prior to discharge. Physical assessment as noted below. Patient is stable for discharge with follow up recommendations as noted above. This patient was seen by MEENU Ruiz under the supervision of Dr. Granados. Patient Problems: Active and Suspected Problems (Last Reviewed 12/23/20 @ 02:[address] Narendra Rendon MD) Palpitations (Acute) - Physical Exam Vitals/I&O's: Vital Signs Temp Pulse Resp BP Pulse Ox 97.4 F L 59 L 16 126/76 H 95 12/23/20 11:20 12/23/20 11:20 12/23/20 11:20 12/23/20 11:20 12/23/20 11:20 Oxygen Delivery Method Room Air Weight: 298 lb 1.039 oz Body Mass Index (BMI) 40.8 Intake and Output for Last 24 Hours 12/21/20 12/22/20 12/23/20 23:59 23:59 23:59 Intake Total 170 / 170 Output Total 1999 Balance -1830 / -1830 General: Alert, Oriented x3, Cooperative HEENT: Atraumatic, PERRLA, EOMI, Normocephalic Neck: Supple, No JVD, Negative Carotid Bruits Lungs: Clear to auscultation, Normal air movement Cardiovascular: Regular Rhythm, Bradycardic - Mild Abdomen: Bowel Sounds Present, Soft, Non Tender, Non-Distended Extremities: No clubbing, No cyanosis, No edema, Capillary Refill Less than 3 Seconds Skin: No rashes, No breakdown Musculoskeletal: No Tenderness to Palpation of Joints or Extremities Neurological: Cranial nerves II-XII grossly intact, Neuro grossly intact Psych/Mental Status: Normal Affect, Appropriate Laboratory Results 12/22/20 18:30: WBC 7.1, RBC 4.99, Hgb 14.0, Hct 41.8, MCV 83.8, MCH 28.1, MCHC 33.5, RDW Std Deviation 40.2, RDW Coeff of [place] 13.2, Plt Count 227, MPV 11.4, Immature Gran % (Auto) 0.300, Neut % (Auto) 50.5, Lymph % (Auto) 36.2, [facility] % (Auto) 9.2, Eos % (Auto) 3.4, Baso % (Auto) 0.4, Absolute Neuts (auto) 3.6, Absolute Lymphs (auto) 2.57, Nucleated RBC % 0 12/22/20 18:30: Sodium 140, Potassium 3.7, Chloride 105, Carbon Dioxide 28.0, Anion Gap 7, BUN 13, Creatinine 1.08, Estim Creat Clear Calc 68.86, Est GFR (MDRD) Af Amer 87, Est GFR (MDRD) Non-Af 72, BUN/Creatinine Ratio 12.0, Glucose 131 H, Calcium 9.0, Total Bilirubin 0.70, AST 21, ALT 39, Alkaline Phosphatase 81, Troponin I < 0.015, Total Protein 7.4, Albumin 3.9, Globulin 3.5, Albumin/Globulin Ratio 1.1 12/22/20 18:30: B-Natriuretic Peptide 175.3 H 12/22/20 21:33: Troponin I 0.020 12/23/20 00:34: POC Glucose 139 H 12/23/20 00:50: Troponin I 0.020 12/23/20 05:34: WBC 7.7, RBC 4.57 L, Hgb 12.7 L, Hct 38.8 L, MCV 84.9, MCH 27.8, MCHC 32.7, RDW Std Deviation 39.9, RDW Coeff of [place] 13.1, Plt Count 189, MPV 11.1, Immature Gran % (Auto) 0.300, Neut % (Auto) 56.8, Lymph % (Auto) 31.3, [facility] % (Auto) 8.0, Eos % (Auto) 3.2, Baso % (Auto) 0.4, Absolute Neuts (auto) 4.4, Absolute Lymphs (auto) 2.42, Nucleated RBC % 0 12/23/20 05:34: Sodium 141, Potassium 3.7, Chloride 109 H, Carbon Dioxide 26.0, Anion Gap 6, BUN 12, Creatinine 0.95, Estim Creat Clear Calc 78.28, Est GFR (MDRD) Af Amer 101, Est GFR (MDRD) Non-Af 83, BUN/Creatinine Ratio 12.7, Glucose 123 H, Calcium 8.6, Triglycerides 223 H, Cholesterol 169, LDL Cholesterol 85, VLDL Cholesterol 45 H, HDL Cholesterol 39 L, TSH 3.13 12/23/20 06:40: POC Glucose 137 H 12/23/20 11:16: POC Glucose 215 H Current Medications Acetaminophen (Acetaminophen 325 Mg Tablet) 650 mg PO Q6H PRN PRN PRN Reason: Pain Score 1-10/Temp > 100.7 F Albuterol Sulfate (Albuterol 2.5 Mg/3 Ml Vial.Neb.) 2.5 mg INHALATION Q2H PRN PRN PRN Reason: SOB/WHEEZING Aspirin (Aspirin 81 Mg [facility].Chew) [facility] Last Admin: 12/23/20 06:37 Dose: 162 mg Documented by: Atorvastatin Calcium (Atorvastatin Calcium 80 Mg Tablet) 80 mg PO QHS [facility] Dextrose (Dextrose 50%-Water 25 Gm/50 Ml Disp.Syrin) 0 gm IV X1 PRN; Protocol PRN Reason: Hypoglycemia Glucagon (Glucagon 1 Mg/Ml Syringe) 1 mg IM .X1 PRN PRN Reason: Hypoglycemia Hydralazine HCl (Hydralazine 20 Mg/Ml Vial) 5 mg IV Q4H PRN PRN PRN Reason: SBP > 160 OR DBP > 120 Insulin Human Lispro (Insulin Lispro 100 Unit/Ml Insuln.Pen) 0 unit SC Q6 [facility]; Protocol Last Admin: 12/23/20 11:18 Dose: 1 u Documented by: Lisinopril (Lisinopril 10 Mg Tablet) 10 mg PO DAILY [facility] Last Admin: 12/23/20 06:37 Dose: 10 mg Documented by: Melatonin (Melatonin 3 Mg Tablet) 3 mg PO QHS PRN PRN PRN Reason: INSOMNIA Multivitamins/Minerals (Multivitamins,Ther W-Minerals Tablet) [facility] Last Admin: 12/23/20 11:18 Dose: 1 tablet Documented by: Ondansetron HCl (Ondansetron 4 Mg/2 Ml Vial) 4 mg IV Q8H PRN PRN PRN Reason: NAUSEA/VOMITING Senna/Docusate Sodium (Senna/Docusate Sodium 1 Tablet) 2 tablet PO BID PRN PRN PRN Reason: Constipation Sodium Chloride (0.9% Saline Lock 10 Ml Syringe) 10 - 40 ml IV UD PRN PRN Reason: SALINE FLUSH Discharge Diet: Low fat/ Low Cholesterol, Carb Control Diet Discharge Activity: Return to Normal Activity Call your doctor if you observe: Shortness of breath, Dizziness, Fainting spells, Chest pain Home Medications: Medications to take at Discharge Aspirin 162 mg PO DAILY 06/19/18 Lisinopril [Zestril] 10 mg PO DAILY 06/19/18 Multivitamins,Ther W-Minerals [Multivitamin With Minerals (BKC)] 1 tab PO DAILY 06/19/18 [place]-3 Fatty Acids/Fish Oil [[place]-3 1,000 mg Softgel] 1 ea PO QHS 06/19/18 Rosuvastatin Calcium [Crestor] 40 mg PO DAILY 06/19/18 albuterol sulfate 90 mcg/actuation aerosol inhaler 2 puff INHALATION Q4H PRN PRN g 07/10/19 glimepiride 2 mg tablet 2 mg PO BID tab 07/10/19 Metoprolol Tartrate [Lopressor (beta sandy)] 12.5 mg PO BID #30 tab 12/23/20 Following Prescriptions Were Given to Patient: Metoprolol Tartrate [Lopressor (beta sandy)] 12.5 mg PO BID #30 tab Transmission Status: Received by [facility]/pharmacy #[id number] Primary Care Physician: Juliano Bowles MD [Primary Care Provider] - Please follow up with your Primary Care Physician in: 1 Week Please Follow Up With: Kaity Kan PA When: 2 Weeks Disposition: Home Minutes spent on discharge:: 35 Patient Condition:: Stable Medical Necessity - Tobacco Use Smoking Status: Never smoker Tobacco Use: Non-smoker Meaningful Use Info Meaningful Use Diagnoses (Choose all that apply): None applicable <Marley Granados E - Last Filed: 12/24/20 12:55> Discharge Date and Diagnosis - Primary Discharge Diagnosis Acute Problems: Active Problems (Last Reviewed 12/23/20 @ 02:[address] Narendra Rendon MD) Palpitations (Acute) - Secondary Discharge Diagnosis Chronic Problems: Chronic Problems (Last Reviewed 12/23/20 @ 02:[address] Narendra Rendon MD) Abnormal stress echo (Chronic) S/P aortic valve replacement with bioprosthetic valve (Chronic 02/10/12) KYLIE to LAD, right radial artery to distal RCA, left radial artery sequenced first to the OM-3 then to the OM-4 (open right and left radial artery harvest, open bilateral lesser SVG harvest); replacement of the aortic valve with a 23mm [employer] Niko Trifecta bovine pericardial aortic valve, colosure of atrial septal defect and a septal aneurysm of the interatrial septum. Per Dr. Rob Fernandez, [facility] Main [place]. 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 Niko Trifecta bovine pericardial aortic valve, colosure of atrial septal defect and a septal aneurysm of the interatrial septum. Per Dr. Rob Fernandez, [facility] [place]. Atherosclerosis of coronary artery of [place] heart without angina pectoris (Chronic) KYLIE to LAD, right radial artery to distal RCA, left radial artery sequenced first to the OM-3 then to the OM-4 (open right and left radial artery harvest, open bilateral lesser SVG harvest); replacement of the aortic valve with a 23mm St[employer] Niko Trifecta bovine pericardial aortic valve, colosure of atrial septal defect and a septal aneurysm of the interatrial septum. Per Dr. Rob Fernandez, [facility]. Carotid artery stenosis (Chronic) 50-69% bilaterally per u/s done 06/20/2018 Essential hypertension (Chronic) HLD (hyperlipidemia) (Chronic) Diabetes mellitus, type II (Chronic) Morbid obesity (Chronic) Hospital Course and Treatment Imaging Results: 12/23/20 06:10 Nuclear Stress Test - Chemical [NM] Routine Summary of Care Provided: Hospitalist note: Discharge summary above reviewed and I concur with above discharge and treatment plan. Patient was admitted because of palpitation and lightheadedness. He was found to have sinus bradycardia, heart rate has been down to 40s. Apart from bradycardia, EKG showed no other acute findings. Troponin was negative. Routine blood work was unremarkable. Chest x-ray showed no acute findings. Patient underwent nuclear stress test that was negative for stress-induced myocardial ischemia. Patient has been on metoprolol at 25 mg p.o. twice daily. Upon discharge, metoprolol decreased down to 12.5 mg p.o. twice daily. Patient symptoms improved. ACS ruled out. No other evidence of cardiac arrhythmias. Patient discharged home in a stable condition,, metoprolol adjusted down to 12.5 mg p.o. twice daily, continued on his other previous home medications without a ny changes, recommended follow-up with PCP in 1 week and follow-up with cardiology in 2 weeks. - Physical Exam General: Alert, Oriented x3, Cooperative, No apparent distress. HEENT: Atraumatic, PERRLA, EOMI. Neck: Supple, No JVD, Negative Carotid Bruits, Trachea Midline, Thyroid Normal. Lungs: Clear to auscultation, Normal air movement, No rhonchi, No wheeze, No rales. Cardiovascular: Regular rate, Regular Rhythm, Normal S1, Normal S2, PMI Normal. Abdomen: Bowel Sounds Present, Soft, Non Tender, Non-Distended, No Hepato- splenomegaly. Extremities: No clubbing, No cyanosis, No edema Skin: No rashes, No breakdown Neurological: Cranial nerves are intact, neuro grossly intact Vital Signs are stable. This note was generated with [employer] dictation software. It may contain incorrect words, spelling, and punctuation that were not noted in checking the note before signing. - Physical Exam Vitals/I&O's: Vital Signs Temp Pulse Resp BP Pulse Ox 97.4 F L 59 L 16 126/76 H 95 12/23/20 11:20 12/23/20 11:20 12/23/20 11:20 12/23/20 11:20 12/23/20 11:20 Oxygen Delivery Method Room Air Weight: 298 lb 1.039 oz Body Mass Index (BMI) 40.8 Intake and Output for Last 24 Hours 12/21/20 12/22/20 12/23/20 23:59 23:59 23:59 Intake Total 170 / 170 Output Total 1999 Balance -1830 / -1830 Laboratory Results 12/22/20 18:30: WBC 7.1, RBC 4.99, Hgb 14.0, Hct 41.8, MCV 83.8, MCH 28.1, MCHC 33.5, RDW Std Deviation 40.2, RDW Coeff of [place] 13.2, Plt Count 227, MPV 11.4, Immature Gran % (Auto) 0.300, Neut % (Auto) 50.5, Lymph % (Auto) 36.2, [facility] % (Auto) 9.2, Eos % (Auto) 3.4, Baso % (Auto) 0.4, Absolute Neuts (auto) 3.6, Absolute Lymphs (auto) 2.57, Nucleated RBC % 0 12/22/20 18:30: Sodium 140, Potassium 3.7, Chloride 105, Carbon Dioxide 28.0, Anion Gap 7, BUN 13, Creatinine 1.08, Estim Creat Clear Calc 68.86, Est GFR (MDRD) Af Amer 87, Est GFR (MDRD) Non-Af 72, BUN/Creatinine Ratio 12.0, Glucose 131 H, Calcium 9.0, Total Bilirubin 0.70, AST 21, ALT 39, Alkaline Phosphatase 81, Troponin I < 0.015, Total Protein 7.4, Albumin 3.9, Globulin 3.5, Albumin/Globulin Ratio 1.1 12/22/20 18:30: B-Natriuretic Peptide 175.3 H 12/22/20 21:33: Troponin I 0.020 12/23/20 00:34: POC Glucose 139 H 12/23/20 00:50: Troponin I 0.020 12/23/20 05:34: WBC 7.7, RBC 4.57 L, Hgb 12.7 L, Hct 38.8 L, MCV 84.9, MCH 27.8, MCHC 32.7, RDW Std Deviation 39.9, RDW Coeff of [place] 13.1, Plt Count 189, MPV 11.1, Immature Gran % (Auto) 0.300, Neut % (Auto) 56.8, Lymph % (Auto) 31.3, [facility] % (Auto) 8.0, Eos % (Auto) 3.2, Baso % (Auto) 0.4, Absolute Neuts (auto) 4.4, Absolute Lymphs (auto) 2.42, Nucleated RBC % 0 12/23/20 05:34: Sodium 141, Potassium 3.7, Chloride 109 H, Carbon Dioxide 26.0, Anion Gap 6, BUN 12, Creatinine 0.95, Estim Creat Clear Calc 78.28, Est GFR (MDRD) Af Amer 101, Est GFR (MDRD) Non-Af 83, BUN/Creatinine Ratio 12.7, Glucose 123 H, Calcium 8.6, Triglycerides 223 H, Cholesterol 169, LDL Cholesterol 85, VLDL Cholesterol 45 H, HDL Cholesterol 39 L, TSH 3.13 12/23/20 06:40: POC Glucose 137 H 12/23/20 11:16: POC Glucose 215 H Current Medications Acetaminophen (Acetaminophen 325 Mg Tablet) 650 mg PO Q6H PRN PRN PRN Reason: Pain Score 1-10/Temp > 100.7 F Albuterol Sulfate (Albuterol 2.5 Mg/3 Ml Vial.Neb.) 2.5 mg INHALATION Q2H PRN PRN PRN Reason: SOB/WHEEZING Aspirin (Aspirin 81 Mg Tab.Chew) [facility] Last Admin: 12/23/20 06:37 Dose: 162 mg Documented by: Atorvastatin Calcium (Atorvastatin Calcium 80 Mg Tablet) 80 mg PO QHS [facility] Dextrose (Dextrose 50%-Water 25 Gm/50 Ml Disp.Syrin) 0 gm IV X1 PRN; Protocol PRN Reason: Hypoglycemia Glucagon (Glucagon 1 Mg/Ml Syringe) 1 mg IM .X1 PRN PRN Reason: Hypoglycemia Hydralazine HCl (Hydralazine 20 Mg/Ml Vial) 5 mg IV Q4H PRN PRN PRN Reason: SBP > 160 OR DBP > 120 Insulin Human Lispro (Insulin Lispro 100 Unit/Ml Insuln.Pen) 0 unit SC Q6 [facility]; Protocol Last Admin: 12/23/20 11:18 Dose: 1 u Documented by: Lisinopril (Lisinopril 10 Mg Tablet) 10 mg PO DAILY [facility] Last Admin: 12/23/20 06:37 Dose: 10 mg Documented by: Melatonin (Melatonin 3 Mg Tablet) 3 mg PO QHS PRN PRN PRN Reason: INSOMNIA Multivitamins/Minerals (Multivitamins,Ther W-Minerals Tablet) [facility] Last Admin: 12/23/20 11:18 Dose: 1 tablet Documented by: Ondansetron HCl (Ondansetron 4 Mg/2 Ml Vial) 4 mg IV Q8H PRN PRN PRN Reason: NAUSEA/VOMITING Senna/Docusate Sodium (Senna/Docusate Sodium 1 Tablet) 2 tablet PO BID PRN PRN PRN Reason: Constipation Sodium Chloride (0.9% Saline Lock 10 Ml Syringe) 10 - 40 ml IV UD PRN PRN Reason: SALINE FLUSH Disposition: Home Minutes spent on discharge:: 27 Patient Condition:: Stable Meaningful Use Info Meaningful Use Diagnoses (Choose all that apply): None applicable OBSV E&M: 51933 Observation care discharge
--- NOTE | 2020-12-23 13:25 | STRESSREP ---
Stress Test Report Pharmacologic myocardial perfusion stress test. 70-year-old man with a history of coronary artery disease with a left internal mammary to the left anterior descending artery, right radial to the distal right coronary artery and left radial as a Y graft sequence to the obtuse marginal branch of the circumflex artery. Replacement of the aortic valve with a 23 mm [place] trifecta bovine valve, closure of an atrial septal defect. Stress protocol: Resting EKG demonstrates normal sinus rhythm with a rate of 54 bpm and left bundle branch block pattern. 0.4 mg of regadenoson was infused per usual protocol followed by Intravenous saline flush injection continuous EKG monitoring was performed. The maximum heart rate attained was 74 bpm which was 49% of max impacted heart rate the maximum workload was 1 metabolic equivalent. At rest there were no ST or T wave changes noted to suggest abnormal flow reserve at peak infusion nonspecific ST changes were noted with no meet any criteria for abnormal flow reserve. Myocardial perfusion protocol. 14.8 mCi of technetium 99m sestamibi was injected at rest. 0.4 mg of regadenoson was infused per usual protocol. At peak infusion 44.9 mCi of technetium 99m sestamibi was injected stress images were obtained stress and rest images were reconstructed and compared in the short axis vertical long horizontal long axis. Gated images were also obtained. Perfusion SPECT analysis: Review of the images demonstrate a large defect noted in the anterior wall extending to the lateral segment. The septum inferior wall and inferolateral wall appear to be well perfused. The resting images demonstrate a similar pattern with minimal possible elizabeth-infarct ischemia noted. No obvious ischemia is present. Gated SPECT analysis: The gated ejection fraction is 47%. Conclusion: Pharmacologic myocardial perfusion stress test with no obvious ischemia noted. Large anterior lateral infarct noted. Mildly reduced ejection fraction.
== END 2020-12-23 10:41 | disposition home or self-care (01) ==
LOC: ED 23:07 → PCU 23:18
PROVIDERS: Admitting Provider Hospitalist; Emergency Provider Emergency Medicine; PCP Family Medicine; Visit Provider Hospitalist
DX: R00.2 Palpitations (principal); I25.10 Atherosclerotic heart disease of native coronary artery without angina pectoris; E78.5 Hyperlipidemia, unspecified; E66.01 Morbid (severe) obesity due to excess calories; R00.1 Bradycardia, unspecified; R94.39 Abnormal result of other cardiovascular function study; I10 Essential (primary) hypertension; I25.2 Old myocardial infarction; E11.65 Type 2 diabetes mellitus with hyperglycemia; R06.02 Shortness of breath; R42 Dizziness and giddiness; Z95.3 Presence of xenogenic heart valve; Z95.1 Presence of aortocoronary bypass graft; Z79.899 Other long term (current) drug therapy; Z79.82 Long term (current) use of aspirin; Z79.84 Long term (current) use of oral hypoglycemic drugs; Z68.41 Body mass index [BMI] 40.0-44.9, adult
CPT/HCPCS: 36415; 71045; 78452; 80048; 80053; 80061; 82962; 83880; 84443; 84484; 85025; 93005; 93017; 97161; 99218; 99285; A9500; A4216; G0378; J2785

== ENCOUNTER → 2021-05-14 11:23 | Outpatient (CLI) | payer MEDICARE, OTHER, SELFPAY ==
[2021-05-14 09:05] VITALS: BMI 38.7
[2021-05-14 13:01] LABS: Anion Gap 9 (5-15); BUN 16 mg/dL (7-18); BUN/Creat Ratio 12.2 RATIO (10-20); Calcium,Total 9.3 mg/dL (8.5-10.1); Chloride 103 mmol/L (98-107); Creatinine, Serum 1.31 mg/dL (0.70-1.30); EST Glomerular Filtration Rate 57 mL/min (>60); Est Glom Filt Rate - Afr Amer 69 mL/min (>60); Glucose 212 mg/dL (74-106); Potassium 3.9 mmol/L (3.5-5.1); Sodium Level 140 mmol/L (136-145)
== END ==
PROVIDERS: PCP Family Medicine; Referring Provider Nurse Practitioner Gerontology; Visit Provider Nurse Practitioner Gerontology
DX: I50.22 Chronic systolic (congestive) heart failure (principal); R06.02 Shortness of breath
CPT/HCPCS: 36415; 80048; 83880

== ENCOUNTER 2021-05-26 12:32 | Inpatient (IN) | payer MEDICARE, OTHER, SELFPAY ==
[2021-05-19 07:51] VITALS: BMI 38.5
[2021-05-26 12:33] VITALS: BP 128/77; PULSE 79; RESP 18; TEMP 36.6; O2SAT 98; BMI 37.4
--- NOTE | 2021-05-26 12:56 | EKG12_ITS ---
Test Reason : CP Blood Pressure : / mmHG Vent. Rate : 069 BPM Atrial Rate : 069 BPM P-R Int : 178 ms QRS Dur : 192 ms QT Int : 472 ms P-R-T Axes : 018 016 150 degrees QTc Int : 505 ms Sinus rhythm with Premature atrial complexes Left bundle branch block Abnormal ECG Confirmed by AMY LOPEZ, MICHELLE ([id number]), commercial production editor SASCHA RAMIREZ ([id number]) on 05/28/2021 9:03:55 AM Referred By: DEVAN Confirmed By:MICHELLE REYES MD
--- NOTE | 2021-05-26 12:57 | EX.ED.DYSGE1 ---
HPI History of Present Illness Chief Complaint: Dizziness Detail of Chief Complaint: Short of breath and cough that started this morning Informant: patient Narrative Narrative: Patient presents to the emergency department stating that he felt well when he woke up this morning but while out golfing began feeling short of breath and developed cough and dry heaves. Patient felt lightheaded from the coughing. He describes some soreness in his chest related to the dry heaving but no chest pain or pressure or heaviness. Nobody else that was with him got sick. He has been immunized against Covid. He denies any sick contacts. He denies fevers. Patient does have history of a aortic valve replacement with a pig valve. Patient also recently was told he had fluid on his lungs and is currently on diuretics. Prior similar symptoms: No PFSH PFSH Medical History (Updated 05/26/21 @ 14:[address] 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 Syncope Home Medications multivitamin,wx-kixr-etvzsunl 1 tab PO DAILY 06/19/18 [History Last Taken 06/19/18 09:00] rosuvastatin 40 mg PO DAILY 06/19/18 [History Last Taken 06/19/18 09:00] albuterol sulfate 90 mcg/actuation aerosol inhaler 2 puff INHALATION Q4H PRN PRN g 07/10/19 [History Last Taken Unknown] glimepiride 2 mg tablet 2 mg PO BID tab 07/10/19 [History Last Taken Unknown] furosemide 40 mg tablet 40 mg PO DAILY #90 tablet 01/13/21 [Rx Last Taken Unknown] metoprolol tartrate 25 mg tablet 12.5 mg PO DAILY tab 05/14/21 [History Last Taken Unknown] aspirin 81 mg chewable tablet 81 mg PO DAILY tab 05/19/21 [History Last Taken Unknown] Allergy/AdvReac Type Severity Reaction Status Date / Time codeine AdvReac Intermediate constipatio Verified 05/26/21 12:35 n Family History Father CAD (coronary artery disease) Surgical History H/O coronary artery bypass surgery (02/10/12) History of aortic valve replacement (02/10/12) History of atrial septal defect repair (02/10/12) History of left heart catheterization (09/11/19) History of tonsillectomy Social History (Reviewed 05/14/21 @ 10:53 by Beverly Vincent CARROTING MACHINE OFFBEARER, CARROTING MACHINE OFFBEARER-C) Smoking Status: Never smoker alcohol intake: never substance use type: does not use caffeine: Yes ROS ROS ED Constitutional Constitutional ED: Reports systems reviewed and no addt'l complaints, except as documented; Denies body ache(s), change in weight or chills Eyes Eyes: Denies acute decrease in peripheral vision, change in vision, double vision or loss of vision ENT ENT ED: Reports none; Denies ear pain, lip swelling, loss taste/smell, neck pain, otalgia or sore throat Cardiovascular Cardiovascular: Reports none; Denies abdominal pain, chest pain with activity, leg edema, lightheadedness, palpitations, rapid heart rate or syncope Respiratory/Chest Respiratory/Chest: Reports none, cough, dyspnea and dyspnea on exertion; Denies change in mental status, dry cough, hemoptysis, shortness of breath at rest or shortness of breath with exertion Gastrointestinal Gastrointestinal: Reports none, nausea and vomiting; Denies abdominal pain, change in stool character, diarrhea, hematemesis, hematochezia, melena or rectal bleeding Genitourinary Genitourinary ED: Reports none; Denies abdominal discomfort, anuria, dysuria, genital pain or polyuria Musculoskeletal Musculoskeletal: Reports none; Denies arthralgias, back pain, difficulty walking, extremity pain, muscle weakness or myalgias Integumentary Reports none; Denies abscess or rash Neurologic Neurologic: Reports none; Denies abnormal gait, confusion, focal weakness, frequent falls, headache(s), loss of vision, numbness, paresthesias, radicular pain, vertigo or weakness Psychiatric Psychiatric: Reports systems reviewed and no addt'l complaints, except as documented and none; Denies behavioral changes, confusion, difficulty concentrating, hallucinations, suicidal ideation, tactile hallucinations or visual hallucinations Endocrine Endocrinology: Denies none, cold intolerance, excessive sweating, fatigue or heat intolerance Hematologic/Lymphatic Hematologic/Lymphatic: Reports none; Denies anemia, easy bleeding or easy bruising Allergic/Immunologic Allergic/Immunologic ED: Denies as per HPI, none, lip swelling, mouth swelling, throat swelling, tongue swelling or hives EXAM Physical Exam Const Vital Signs: 05/26/21 12:33 05/26/21 13:22 Temperature 97.8 F Temperature Source Temporal Pulse Rate 79 Respiratory Rate 18 Respiratory Effort Short of Breath Blood Pressure 128/77 H Blood Pressure Mean 94 Pulse Ox 98 Oxygen Delivery Method Room Air Positive well nourished and well developed General Appearance ED: well developed and NAD HEENT Reports TM's clear and moist mucous membranes normocephalic and atraumatic; Negative for trauma or tenderness Tympanic Membrane ED: Yes TM's clear Eyes PERRL and EOMs intact bilaterally General Eye ED: Negative for pale conjunctiva or scleral icterus Neck no lymphadenopathy, supple and no JVD General: Negative for tenderness Chest Wall inspection of chest normal and palpation of chest normal Chest: Negative for tenderness Resp normal respiratory effort Resp Narrative: Patient with few rales in both bases noted. No accessory muscle use or retractions. Effort and Inspection: Negative for respiratory distress or pain with movement Auscultation: rales; Negative for rhonchi, wheezes or diminished lung sounds Cardio regular rate, regular rhythm, S1 normal heart sound, S2 normal heart sound and no murmurs Peripheral Pulses: pulses 2+ throughout GI normal to inspection, nondistended, normoactive bowel sounds, soft to palpation, non-tender, non-distended and no masses Back/Spine no CVA tenderness and no thoracic nor lumbar tenderness Extremity normal to inspection General Extremety ED: Negative for edema General Extremity: Negative for edema Neuro oriented x3, CN's II-XII intact bilaterally, no sensory deficits noted and gait normal Sensorium / Orientation: awake, alert, oriented to person, oriented to place and oriented to time Motor Exam: strength 5/5 throughout and strength abnormal Psych mental status grossly normal Skin no rashes or lesions noted and no wounds MDM MDM MDM Narrative Medical decision making narrative: Patient's troponin returned quite elevated. He tells me has had several episodes like today in the last 2 to 3 weeks but typically would resolve after he had dry heaves. Patient I feel is having acute coronary syndrome. I discussed case with lead clinical research coordinator Dr. Rasheed Moodispaw who asked that we start patient on a heparin drip. Discussed case with hospitalist will evaluate patient for admission. Patient with a heart score of 7. Lab Data Attestation: I reviewed the patient's lab results. Labs: Laboratory Results - last 24 hr 05/26/21 05/26/21 05/26/21 13:17 13:17 13:17 WBC 10.2 RBC 5.33 Hgb 14.6 Hct 44.7 MCV 83.9 MCH 27.4 MCHC 32.7 RDW Std Deviation 39.5 RDW Coeff of Senia 13.0 Plt Count 229 MPV 11.5 Immature Gran % (Auto) 0.300 Neut % (Auto) 83.7 H Lymph % (Auto) 10.2 L Smyth % (Auto) 5.1 Eos % (Auto) 0.3 Baso % (Auto) 0.4 Absolute Neuts (auto) 8.5 H Absolute Lymphs (auto) 1.04 Nucleated RBC % 0 D-Dimer Quant (PE/DVT) 0.51 H* Sodium 135 L Potassium 4.0 Chloride 102 Carbon Dioxide 26.0 Anion Gap 7 BUN 16 Creatinine 1.43 H Estim Creat Clear Calc 52.00 Est GFR (MDRD) Af Amer 63 Est GFR (MDRD) Non-Af 52 L BUN/Creatinine Ratio 11.2 Glucose 278 H Calcium 8.9 Troponin I High Sens 1867.9 H* B-Natriuretic Peptide 05/26/21 13:17 WBC RBC Hgb Hct MCV MCH MCHC RDW Std Deviation RDW Coeff of Senia Plt Count MPV Immature Gran % (Auto) Neut % (Auto) Lymph % (Auto) Smyth % (Auto) Eos % (Auto) Baso % (Auto) Absolute Neuts (auto) Absolute Lymphs (auto) Nucleated RBC % D-Dimer Quant (PE/DVT) Sodium Potassium Chloride Carbon Dioxide Anion Gap BUN Creatinine Estim Creat Clear Calc Est GFR (MDRD) Af Amer Est GFR (MDRD) Non-Af BUN/Creatinine Ratio Glucose Calcium Troponin I High Sens B-Natriuretic Peptide 318.9 H Radiography Chest X-Ray - ED: 1 View Diagnostic Testing: Radiology Impression Chest X-Ray 05/26/21 13:00 IMPRESSION: Subtle interstitial opacifications and develop in the right lung since the previous study. Differential as described above. Follow-up recommended to ensure complete resolution Electronically Signed: Jaret Mcintyre MD at 13:34 EDT , Service support , 1 view chest x-ray obtained interpreted by myself as questionable increased markings in the right lower lobe. Radiology was in agreement. EKG Initial EKG: Attestation: I personally reviewed and interpreted this EKG as follows: Comments: Sinus rhythm with ventricular rate of 71 bpm with a left bundle branch block Prior EKG tracings: available for review Prior: Unchanged Discharge Plan Triage Chief Complaint: Dizziness ED Provider: Emily Mckeon Dx/Rx/DC Orders Clinical Impression: ACS (acute coronary syndrome) Prescriptions: No Action glimepiride 2 mg tablet 2 mg PO BID RF: 0 albuterol sulfate [ProAir HFA] 90 mcg/actuation HFA aerosol inhaler 2 puff INHALATION Q4H PRN PRN (Reason: Sob &/Or Wheezing) RF: 0 furosemide [Lasix] 40 mg tablet 40 mg PO DAILY Qty: 90 RF: 3 metoprolol tartrate 25 mg tablet 12.5 mg PO DAILY RF: 0 multivitamin,to-dpny-hsawjoqd 1 TABLET tablet 1 tab PO DAILY RF: 0 rosuvastatin 40 MG tablet 40 mg PO DAILY RF: 0 aspirin 81 mg tablet,chewable 81 mg PO DAILY RF: 0 Primary Care Provider: Juliano Bowles Referrals: Juliano Bowles MD [Primary Care Provider] - Disposition Disposition: Acute Care Hospital [facility]
--- NOTE | 2021-05-26 13:00 | RAD_ITS ---
STUDY: X-RAY CHEST REASON FOR EXAM: Male, 70 years old. Worsening shortness of breath TECHNIQUE: Single AP portable view of the chest. COMPARISON: 12/22/2020 FINDINGS: Lungs are expanded, with development of subtle interstitial opacifications, particularly in the right lower lobe since the previous study. This can be seen with Covid pneumonia, but also with pneumonitis, or bacterial pneumonia.. There is no demonstrated pleural abnormality. Sternal cerclage wires and vascular clips are present from a prior sternotomy and coronary artery bypass graft procedure (CABG). Normal mediastinum and jane. Normal visualized pulmonary arteries. Normal visualized aortic arch and descending thoracic aorta. There are diffuse degenerative changes of the visualized thoracic spine. Normal visualized ribs, clavicles, and shoulders. There is no demonstrated abnormality of the visualized soft tissue structures of the upper abdomen. RAD/Chest 1 View (Portable) IMPRESSION: Subtle interstitial opacifications and develop in the right lung since the previous study. Differential as described above. Follow-up recommended to ensure complete resolution Electronically Signed: Jaret Mcintyre MD at 13:34 EDT , Service support ,
[2021-05-26 13:23] LABS: Absolute Lymphocyte Count 1.04 X10^3/uL (0.83-4.51); Absolute Neutrophil Count 8.5 X10^3/uL (2.0-7.7); Basophil# 0.04 X10^3/uL; Basophil% 0.4 % (0-1); Eosinophil# 0.03 X10^3/uL; Eosinophils% 0.3 % (0-5); Hematocrit 44.7 % (40-54); Hemoglobin 14.6 g/dL (13.0-16.5); Lymphocyte # 1.04 X10^3/ul (0.83-4.51); Lymphocyte % 10.2 % (19-41); Mean Corp Hgb Conc 32.7 g/dL (32-36); Mean Corpuscular Hgb 27.4 pg (27.0-32.0); Mean Corpuscular Volume 83.9 fL (80-94); Mean Platelet Vol. 11.5 fl (6.2-12.0); Monocyte# 0.52 X10^3/uL; Monocyte% 5.1 % (0-10); NRBC Flagged by Analyzer 0 % (0-5); Neutrophil # 8.53 X10^3/uL (2.7-7.7); Neutrophil % 83.7 % (47-70); Platelet Count 229 K/mm3 (150-450); RBC Distribution Width SD 39.5 fl (35.1-43.9); Red Blood Count 5.33 M/mm3 (4.6-6.2); White Blood Count 10.2 K/mm3 (4.4-11.0)
[2021-05-26 13:38] LABS: D-Dimer Quantitative (DVT/PE) 0.51 FEU/ug/m (0.27-0.49)
[2021-05-26 13:41] LABS: BNP,B-Type NATRIURETIC PEPTIDE 318.9 pg/mL (0-100)
[2021-05-26 13:44] LABS: Anion Gap 7 (5-15); BUN 16 mg/dL (7-18); BUN/Creat Ratio 11.2 RATIO (10-20); Calcium,Total 8.9 mg/dL (8.5-10.1); Chloride 102 mmol/L (98-107); Creatinine, Serum 1.43 mg/dL (0.70-1.30); EST Glomerular Filtration Rate 52 mL/min (>60); Est Glom Filt Rate - Afr Amer 63 mL/min (>60); Glucose 278 mg/dL (74-106); Sodium Level 135 mmol/L (136-145); Troponin-I HS 1867.9 pg/mL (3.0-78.5)
[2021-05-26] MEDS: Aspirin 81 MG TAB.CHEW 324 MG PO (14:28)
--- NOTE | 2021-05-26 14:31 | PCM.HP.STD ---
HPI - General General Date of Admission: 05/26/21 HPI Narrative MARYCRUZ MEJIA, is a 70 M with multiple comorbidities as mentioned below came to ER for worsening shortness of breath for about [address]. [address] Weber on 05/14 and at that time he had shortness of breath on activity, playing senior softball league match but it has gotten worse. Patient denies chest pain/pressure or tightness. He felt diaphoretic, dizzy or lightheaded when he came to the ER. Patient denies weight gain or increasing leg swelling, actually he is losing weight. Complain of mild bilateral shoulder aches and pain probably related to playing softball/golf. In ED, twelve-lead EKG shows normal sinus rhythm, old LBBB 71 bpm with sinus arrhythmia. No significant change from previous EKG of December 2020 except that was sinus bradycardia at 57 bpm hs-troponins elevated. Patient is started on IV heparin drip, had aspirin 324 mg is further admitted. Electronics Engineer is consulted. [facility] Medical History (Updated 05/26/21 @ 14:[address] 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 Syncope Home Medications rosuvastatin 40 mg PO DAILY 06/19/18 [History Last Taken 06/19/18 09:00] albuterol sulfate 90 mcg/actuation aerosol inhaler 2 puff INHALATION Q4H PRN PRN g 07/10/19 [History Last Taken Unknown] glimepiride 2 mg tablet 2 mg PO BID tab 07/10/19 [History Last Taken Unknown] aspirin 81 mg chewable tablet 81 mg PO DAILY tab 05/19/21 [History Last Taken Unknown] furosemide [Lasix] 40 mg PO DAILY 05/26/21 [History Last Taken 05/26/21] lisinopril 10 mg PO DAILY 05/26/21 [History Last Taken 05/26/21] multivitamin 1 tab PO DAILY 05/26/21 [History Last Taken 05/26/21] Allergy/AdvReac Type Severity Reaction Status Date / Time codeine AdvReac Intermediate constipatio Verified 05/26/21 12:35 n Family History Father CAD (coronary artery disease) Surgical History H/O coronary artery bypass surgery (02/10/12) History of aortic valve replacement (02/10/12) History of atrial septal defect repair (02/10/12) History of left heart catheterization (09/11/19) History of tonsillectomy Social History Smoking Status: Never smoker alcohol intake: never substance use type: does not use caffeine: Yes ROS ROS Narrative Constitutional: Reports fatigue and weakness HEENT: Reports systems reviewed and no addt'l complaints, except as documented Respiratory/Chest: Dyspnea on exertion. Rest as mentioned in HPI Gastrointestinal: Denies coffee ground emesis, hematemesis or vomiting Genitourinary: Denies burning urination or new lower urinary tract symptoms Musculoskeletal: Mild bilateral shoulder aches and pain as mentioned in HPI. Neurologic: Denies seizure-like activity skin: No ulcer. No rash Endocrinology: Reports systems reviewed and no addt'l complaints, except as documented Hematologic/Lymphatic: Reports systems reviewed and no addt'l complaints, except as documented Rest 12 ROS are negative except as mentioned in HPI Vital Signs Vital Signs Vital Signs: 05/26/21 12:33 05/26/21 13:22 Temperature 97.8 F Temperature Source Temporal Pulse Rate 79 Respiratory Rate 18 Respiratory Effort Short of Breath Blood Pressure 128/77 H Blood Pressure Mean 94 Pulse Ox 98 Oxygen Delivery Method Room Air Weight Weight: 276 lb Body Mass Index (BMI) 37.4 Physical Exam Narrative General: Alert, Oriented x3, Cooperative HEENT: Atraumatic, PERRLA, EOMI, Normocephalic Oral: No Gingival or Mucosal Lesions/ Ulcerations Neck: Supple, No JVD, Negative Carotid Bruits Lungs: Air entry equal in bilateral lung bases. No crepitation/rhonchi/wheezing Cardiovascular: Sinus rhythm with PAC, sinus arrhythmia, Normal S1, Normal S2, grade 3/6 systolic and diastolic right second ICS murmur. Abdomen: Bowel Sounds Present, Soft, Non Tender, Non-Distended : No renal angle tenderness. No suprapubic tenderness. Extremities: Subtle bilateral ankle edema, Capillary Refill Less than 3 Seconds Skin: No rashes, No breakdown Musculoskeletal: No Tenderness to Palpation of Joints or Extremities Neurological: Cranial nerves II-XII grossly intact, DTR 2+/4 and Symmetrical, Neuro grossly intact Psych/Mental Status: Normal Affect, Appropriate. Results Lab / Micro Data Result Diagrams: 05/26/21 13:17 05/26/21 13:17 Labs: Laboratory Results - last 24 hr 05/26/21 13:17: WBC 10.2, RBC 5.33, Hgb 14.6, Hct 44.7, MCV 83.9, MCH 27.4, MCHC 32.7, RDW Std Deviation 39.5, RDW Coeff of Senia 13.0, Plt Count 229, MPV 11.5, Immature Gran % (Auto) 0.300, Neut % (Auto) 83.7 H, Lymph % (Auto) 10.2 L, [place] % (Auto) 5.1, Eos % (Auto) 0.3, Baso % (Auto) 0.4, Absolute Neuts (auto) 8.5 H, Absolute Lymphs (auto) 1.04, Nucleated RBC % 0 05/26/21 13:17: D-Dimer Quant (PE/DVT) 0.51 H* 05/26/21 13:17: Sodium 135 L, Potassium 4.0, Chloride 102, Carbon Dioxide 26.0, Anion Gap 7, BUN 16, Creatinine 1.43 H, Estim Creat Clear Calc 52.00, Est GFR (MDRD) Af Amer 63, Est GFR (MDRD) Non-Af 52 L, BUN/Creatinine Ratio 11.2, Glucose 278 H, Calcium 8.9, Troponin I High Sens 1867.9 H* 05/26/21 13:17: B-Natriuretic Peptide 318.9 H Radiology Impression Chest X-Ray 05/26/21 13:00 IMPRESSION: Subtle interstitial opacifications and develop in the right lung since the previous study. Differential as described above. Follow-up recommended to ensure complete resolution Electronically Signed: Jaret Mcintyre MD at 13:34 EDT , Service support , Assessment & Plan Assessment/Plan (1) NSTEMI, initial episode of care: PLAN: This is a 70-year-old gentleman with multiple comorbidities came to ED for worsening shortness of breath for about 2 weeks 1. Non-STEMI with history of quadruple bypass in January 2012, bioprosthetic AVR, mild chronic HFpEF: Patient is being admitted in PCU. On IV heparin drip, aspirin, metoprolol, lisinopril and high intensity statin. 2D echo is ordered. Cardiology consult. Trend serial isolated troponins. Chest x-ray initially reviewed shows mild interstitial markings in the right lower lung but no obvious venous congestion. BNP elevated but has been chronically elevated in April and is less than that. D-dimer mildly elevated but corrected is normal patient was last admitted in December 2020 for bradycardia which was managed conservatively by lowering the dose of beta-sandy. Pharmacological nuclear stress test at that time was negative for ischemia. 2D echo in November 2020 shows EF 60%, stage I diastolic dysfunction bioprosthetic aortic valve, mild and AI. Patient also had PFT in December 13 reported isolated mild restrictive ventilatory impairment probably due to body habitus. DLCO normal limit. 2. Diabetes mellitus: Glucose is elevated. Accu-Chek as it is covered with Humalog sliding scale and Lantus insulin. Hold oral hypoglycemic agent. 3. Hypertension: Blood pressure is normal limit. On metoprolol and lisinopril. 4. Obesity grade 3: BMI 37.4 Kd per meter square. VTE prophylaxis: On IV heparin drip Living will/advanced directive/end of life care: Patient does not have living will or advanced directive but he said he will prepare it. After discussion of benefits/risks procedures involved with full code, DNR CC arrest and DNR CC, the patient opted for full code Patient does want artificial life support including intubation, tube feed, ventilator and/chest compression, central venous catheter, vasopressor and DC shock if needed Total time spent in [id number] encounter in discussion of advanced directive 16 minutes. Charges/Coding Visit Charges Inpatient E&M: 81699 Init Hosp L3 Procedures Hospitalists Procedures: 61565 Advncd Care Plan 30 Min
[2021-05-26] MEDS: Heparin Injection (Vial) 5,000 UNIT/ML VIAL 9500 UNIT IV (14:32)
[2021-05-26] MEDS: HEPARIN/D5w 25,000 UNITS 25,000 UNITS/250 ML IV.SOLN. 16 UNITS IV (14:33)
[2021-05-26 14:44] LABS: Magnesium 2.2 mg/dL (1.6-2.6)
[2021-05-26 14:47] LABS: Prothrombin Time (Protime)PT. 12.9 SECONDS (11.7-14.9)
--- NOTE | 2021-05-26 14:47 | EKG12_ITS ---
Test Reason : PRE-OP Blood Pressure : / mmHG Vent. Rate : 067 BPM Atrial Rate : 067 BPM P-R Int : 194 ms QRS Dur : 192 ms QT Int : 494 ms P-R-T Axes : 015 021 159 degrees QTc Int : 521 ms Normal sinus rhythm with sinus arrhythmia Left bundle branch block Abnormal ECG Confirmed by AMY LOPEZ, MICHELLE ([id number]), commercial production editor SASCHA RAMIREZ ([id number]) on 05/28/2021 9:02:28 AM Referred By: DEVAN Confirmed By:MICHELLE REYES MD
--- NOTE | 2021-05-26 14:47 | ECHOCS_ITS ---
Reason For Study: NSTEMI Procedure This was a 2D Doppler, Color Flow transthoracic echocardiogram. The study was technically difficult. Contrast injection was performed. Exam performed portable in patient room. Left Ventricle Moderately dilated left ventricle. Moderate segmental systolic dysfunction (see wall motion). The estimated ejection fraction is 30 %. Anterio-Basal: Not visualized. Lateral-Basal: Not visualized. Infero-Basal: Not visualized. Basal inferoseptal: Not visualized. Mid-Anterior : Akinetic. Mid- Lateral : Akinetic. Mid-Posterior: Hypokinetic. Mid-Inferior: Hypokinetic. Mid-inferoseptal : Hypokinetic. Right Ventricle Normal RV size. Normal systolic function. Atria The left atrium is mildly enlarged. Normal right atrium. No doppler evidence for ASD. Mitral Valve There is moderate mitral annular calcification. Extension the mitral annular calcification onto the base of the posterior mitral valve leaflet. Mild (1+) mitral valve insufficiency. Tricuspid Valve Normal tricuspid valve. Trivial tricuspid valve insufficiency. Unable to estimate RV systolic pressure/pulmonary artery pressure due to technically difficult study. Aortic Valve Mild diffuse aortic valve calcification. Mild aortic stenosis. Stable appearing bioprosthetic aortic valve apparatus. Mild transvalvular insufficiency of the aortic valve. Pulmonic Valve The pulmonic valve is not well visualized. Great Vessels Normal sized aortic root. Pericardium/Pleural No pericardial effusion. Medication Diluted definity 4ml given slow IV push to enhance endocardial definition. MMode/2D Measurements & Calculations LVIDd: 5.9 cm IVSd: 1.8 cm LVOT diam: 2.0 cm LVIDs: 5.0 cm LVPWd: 1.7 cm FS: 15.0 % LVOT area: 3.1 cm2 Ao root diam: 3.8 cm LAV(MOD-bp): 86.2 ml LA A4 area: 24.2 cm2 LA dimension: 5.3 cm LAV(MOD-bp) Indexed: 35.1 ml/m2 LAV(MOD-sp2): 87.4 ml LAV(MOD-sp4): 80.4 ml Time Measurements MV dec time: 0.17 sec Doppler Measurements & Calculations MV E max justice: 125.2 cm/sec Lat Peak E' Justice: 9.4 cm/sec Med Peak E' Justice: 5.8 cm/sec MV A max justice: 147.6 cm/sec E/E' lat: 13.3 E/E' med: 21.5 MV E/A: 0.85 MV V2 max: 178.6 cm/sec MV P1/2t max justice: 154.1 cm/sec Ao V2 max: 230.9 cm/sec MV max P.8 mmHg MV P1/2t: 55.8 msec Ao max P.4 mmHg MV V2 mean: 114.1 cm/sec MV dec slope: 808.7 cm/sec2 Ao V2 mean: 164.1 cm/sec MV mean P.1 mmHg Ao mean P.2 mmHg MV V2 VTI: 33.2 cm MVA(P1/2t): 3.9 cm2 Ao V2 VTI: 47.8 cm MVA(VTI): 2.1 cm2 JOANIE(I,D): 1.5 cm2 JOANIE(V,D): 1.6 cm2 AI max justice: 464.2 cm/sec LV V1 max: 117.0 cm/sec SV(LVOT): 70.3 ml AI max P.2 mmHg LV V1 max P.5 mmHg LV V1 mean P.0 mmHg AI dec slope: 345.7 cm/sec2 LV V1 mean: 80.6 cm/sec AI P1/2t: 393.3 msec LV V1 VTI: 22.8 cm PA V2 max: 99.0 cm/sec ECHO/Echo Complete W/ Contrast Interpretation Summary The study was technically difficult. Contrast injection was performed. Moderately dilated left ventricle. Moderate segmental systolic dysfunction (see wall motion). The estimated ejection fraction is 30 %. The left atrium is mildly enlarged. There is moderate mitral annular calcification. Extension the mitral annular calcification onto the base of the posterior marce l valve leaflet. Mild (1+) mitral valve insufficiency. Trivial tricuspid valve insufficiency. Stable appearing bioprosthetic aortic valve apparatus. Mild diffuse aortic valve calcification. Mild aortic stenosis. Mild transvalvular insufficiency of the aortic valve. Unable to estimate RV systolic pressure/pulmonary artery pressure due to techni migel difficult study. Transmitral diastolic flow velocities suggest diastolic dysfunction (pseudonorm al pattern). Ordering Physician: Jonah Valderrama Referring Physician: Juliano Bowles Performed By: Gareth Briceno RCS
[2021-05-26 14:48] LABS: Partial Thromboplast Time 30.2 Seconds (24.1-36.2)
[2021-05-26 14:50] VITALS: BMI 38.0
[2021-05-26 15:17] VITALS: BP 125/72; PULSE 87; RESP 18; TEMP 36.7; O2SAT 98
[2021-05-26] MEDS: Furosemide 20 MG/2 ML VIAL IV (15:20)
[2021-05-26] MEDS: 0.9% Saline Lock 10 ML Syringe IV (15:20)
[2021-05-26 15:59] VITALS: PULSE 65
[2021-05-26 17:27] VITALS: O2SAT 98
[2021-05-26 20:05] VITALS: PULSE 71
--- NOTE | 2021-05-26 20:16 | CON.PCM.CA_ITS ---
Assessment & Plan Assessment/Plan (1) NSTEMI, initial episode of care: PLAN: The patient has findings compatible with an acute non-ST segment elevation FL. It is unclear at the moment whether this is a type I event from a primary acute coronary syndrome event versus a type II event from supply demand mismatch potentially brought out by his diminished LV systolic function. At the present time he appears to be without acute symptoms and resting comfortably. He will continue to be monitored. He will continue medical therapy as deemed appropriate. He has already gone through noninvasive valuation with transthoracic echocardiogram. Based upon the aforementioned findings it was felt reasonable the patient be c onsidered for repeat evaluation with diagnostic cardiac catheterization. The procedure and risk were discussed with him. He was agreeable to this approach. Depending upon the findings he may or may not need additional revascularization therapy versus continued medical management. (2) Atherosclerosis of coronary artery of venetie heart without angina pectoris: QUALIFIERS: Coronary Disease-Associated Artery/Lesion type: venetie artery Qualified Code(s): I25.10 - Atherosclerotic heart disease of venetie coronary artery without angina pectoris PLAN: The patient does have a history of extensive underlying CAD requiring CABG as described above. At the present time he will continue to be monitored and continue to receive medical management. He has been recommended for further invasive evaluation as noted. (3) H/O coronary artery bypass surgery: PLAN: The patient's CABG history has been reviewed. At the present time his most recent cardiac catheterization from 2019 demonstrated his arterial grafts to be patent. He has no venous grafts. There is concern as to whether there is been a change in his graft status le ading to his current event. Thus he is going to be recommended for further evaluation with diagnostic cardiac catheterization. (4) History of aortic valve replacement: PLAN: The patient's aortic valve has been reassessed noninvasively. It appears to be stable. He does appear to have an element of mild aortic valve stenosis/insufficiency. He does need to continue AHA antibiotic prophylaxis. He will need to continue follow-up. (5) History of atrial septal defect repair: PLAN: The patient also has a history of an atrial septal defect and atrial septal aneurysm repair. His echocardiogram did not suggest any new acute changes. He will continue to be followed. (6) Ischemic cardiomyopathy: PLAN: He appears to have an underlying ischemic mediated cardiomyopathy with diminished LV systolic function and LVEF. There is concern as to whether this could be contributing to his symptoms and his elevated cardiac enzymes. At the moment he will continue to be observed. He will continue optimization of his medical management. Depending upon his future clinical course, if his LVEF remains diminished as it is now, he will need to be considered for future ICD therapy. (7) HLD (hyperlipidemia): QUALIFIERS: Hyperlipidemia type: unspecified Qualified Code(s): E78.5 - Hyperlipidemia, unspecified PLAN: He should continue risk factor evaluation and care. (8) Essential hypertension: PLAN: His pressure will be followed with his medicines being adjusted accordingly. (9) Carotid artery stenosis: QUALIFIERS: Laterality: bilateral Qualified Code(s): I65.23 - Occlusion and stenosis of bilateral carotid arteries PLAN: He does have a history of bilateral carotid artery stenosis based on previous [facility] records. He should continue risk factor evaluation/medical therapy. Addt'l Comments The patient's case was discussed and reviewed with the patient, the [facility] emergency department staff, and the [facility] hospital staff. This note was generated using a voice recognition system and there may be incorrect words, spelling or punctuation that were not noted when reviewing the office note prior to saving. HPI Consult Data Date of Consult: 05/26/21 HPI Narrative HPI Narrative: MARYCRUZ MEJIA, is a 70 year old white male who presents who presents for consultation based upon concerns of shortness of breath/dyspnea, cough, dry heaves, and abnormal troponin I levels superimposed upon a history of CAD, status post CABG (HODGES to the LAD, right radial artery Y graft from the HODGES to the LAD to the OM, right radial artery to the RCA-2011 at [facility]), status post aortic valve replacement with a number 23 mm [place] Trifecta bovine pericardial tissue valve (2011 at [facility]), status post atrial septal defect/septal aneurysm repair (2011 at [facility]), superimposed upon hyperlipidemia, hypertension, diabetes mellitus, and carotid artery disease. He states for some time now he has been feeling more short of breath and dyspneic with activity. He notes that at home he sleeps in an incline. He tries to keep his lower extremities raised when he is sitting. He does wear bilateral lower extremity support stockings. He has not necessarily complained of chest discomfort with his symptoms. He denies any near-syncope or syncope. Today he states he had recurrent symptoms while on the golf course. He could not finish playing 9 holes of golf. He had to stop and rest. He eventually drove himself home. He then presented to the hospital for further evaluation. As part of his evaluation he had cardiac enzymes performed. His high- sensitivity troponin I levels were abnormal. His ECG demonstrated sinus rhythm with PACs with a left bundle branch block pattern.His His chest X was reported by radiology as demonstrating interstitial opacifications in the right lower lobe with concerns of pneumonitis being bacterial or potentially Covid as well as post open heart surgery changes. His [employer] levels were noted to be elevated. On subsequent follow-up evaluation his repeat troponin I level increased from 1867.9 up to 6751.2. He has had previous noninvasive cardiovascular evaluation as well. He underwent a transthoracic echocardiogram today. The results are as noted below. In comparison to a previous transthoracic echocardiogram he had performed in November of this year and appears his overall LV systolic function/LVEF has decreased (from approximately 60% to approximately 30%). He had a pharmacologic stress nuclear imaging study performed in December of this year. At that time it was reported he had findings compatible with a large anterior lateral infarct with an LVEF of 47%. [facility] Medical History (Updated 05/26/21 @ 20:[address] 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 Syncope Home Medications rosuvastatin 40 mg PO DAILY 06/19/18 [History Last Taken 05/26/21] albuterol sulfate 90 mcg/actuation aerosol inhaler 2 puff INHALATION Q4H PRN PRN g 07/10/19 [History Last Taken 05/25/21] glimepiride 2 mg tablet 2 mg PO BID tab 07/10/19 [History Last Taken 05/26/21] aspirin 81 mg chewable tablet 162 mg PO DAILY tab 05/19/21 [History Last Taken 05/26/21] furosemide [Lasix] 40 mg PO BID 05/26/21 [History Last Taken 05/26/21] lisinopril 10 mg PO DAILY 05/26/21 [History Last Taken 05/26/21] multivitamin 1 tab PO DAILY 05/26/21 [History Last Taken 05/26/21] Allergy/AdvReac Type Severity Reaction Status Date / Time codeine AdvReac Intermediate constipatio Verified 05/26/21 12:35 n Family History Father CAD (coronary artery disease) Surgical History H/O coronary artery bypass surgery (02/10/12) History of aortic valve replacement (02/10/12) History of atrial septal defect repair (02/10/12) History of left heart catheterization (09/11/19) History of tonsillectomy Social History Smoking Status: Never smoker alcohol intake: never substance use type: does not use caffeine: Yes ROS Constitutional Constitutional: Reports as per HPI Eyes Eyes: Reports as per HPI ENT HEENT: Reports as per HPI Cardiovascular Cardiovascular: Reports dyspnea, dyspnea on exertion and edema Respiratory/Chest Respiratory/Chest: Reports dry cough, dyspnea and dyspnea on exertion Gastrointestinal Gastrointestinal: Reports as per HPI Genitourinary Genitourinary: Reports as per HPI Musculoskeletal Musculoskeletal: Reports as per HPI Integumentary Integumentary: Reports as per HPI Neurologic Neurologic: Reports as per HPI Physical Exam Narrative This is a 70-year-old white male who appears to be resting reasonably co mfortably at the moment in no acute distress. Const alert, oriented x3 and no apparent distress Orientation / Consciousness: awake HEENT normocephalic, head/scalp atraumatic and hearing grossly normal bilaterally Eyes PERRL, EOMs intact bilaterally and conjunctivae normal Neck full ROM, supple and no JVD Chest Chest: midline sternotomy incision Resp Auscultation: diminished lung sounds bilateral lower Cardio regular rate, regular rhythm, S1 normal heart sound and S2 normal heart sound Heart Sounds: murmur systolic III/ harsh mid left sternal border, LVOT and sternal notch GI normal to inspection, nondistended, normoactive bowel sounds Extremity General Extremity: edema bilateral lower extremity (Wearing bilateral support stockings) Details: mild Skin no rashes or lesions noted Neuro oriented x3, moves all extremities, no focal motor deficits and no sensory deficits noted Psych mental status grossly normal Procedure Criteria Type of Procedure Procedure Type: Elective Elective Risks - COVID COVID Risk Discussion: The surgeon/proceduralist and patient have discussed in detail the risk of exposure to and/or potential harm posed by the COVID-19 virus with having a surgery/procedure at this time versus the risk of delaying the surgery/procedure. It is not possible to know either the risk of delaying the surgery or procedure or chance of getting an infection with perfect accuracy, but a joint decision was made between the patient and the surgeon/proceduralist to proceed at this time with the scheduled surgery/procedure as indicated on the consent form. Objective Data Vital Signs: Vital Signs Temp Pulse Resp BP Pulse Ox 98.1 F 71 18 125/72 H 98 05/26/21 15:17 05/26/21 20:05 05/26/21 15:17 05/26/21 15:17 05/26/21 17:27 Oxygen Delivery Method Room Air Weight: 280 lb 3.2 oz Body Mass Index (BMI) 38.0 Lab / Micro Data Result Diagrams: 05/26/21 13:17 05/26/21 13:17 Labs: Laboratory Results - last 24 hr 05/26/21 13:17: WBC 10.2, RBC 5.33, Hgb 14.6, Hct 44.7, MCV 83.9, MCH 27.4, MCHC 32.7, RDW Std Deviation 39.5, RDW Coeff of Senia 13.0, Plt Count 229, MPV 11.5, Immature Gran % (Auto) 0.300, Neut % (Auto) 83.7 H, Lymph % (Auto) 10.2 L, Rusk % (Auto) 5.1, Eos % (Auto) 0.3, Baso % (Auto) 0.4, Absolute Neuts (auto) 8.5 H, Absolute Lymphs (auto) 1.04, Nucleated RBC % 0 05/26/21 13:17: D-Dimer Quant (PE/DVT) 0.51 H* 05/26/21 13:17: Sodium 135 L, Potassium 4.0, Chloride 102, Carbon Dioxide 26.0, Anion Gap 7, BUN 16, Creatinine 1.43 H, Estim Creat Clear Calc 52.00, Est GFR (MDRD) Af Amer 63, Est GFR (MDRD) Non-Af 52 L, BUN/Creatinine Ratio 11.2, Glucose 278 H, Calcium 8.9, Troponin I High Sens 1867.9 H* 05/26/21 13:17: B-Natriuretic Peptide 318.9 H 05/26/21 13:17: Magnesium 2.2 05/26/21 14:27: PT 12.9, INR 1.0, APTT 30.2 05/26/21 15:47: Troponin I High Sens 6751.2 H* Micro: Microbiology 05/26/21 14:31 Mucosa - Nose SARS-CoV-2 Antigen (Rapid) - Final Cardiology Labs/Tests 05/26/21 13:17: WBC 10.2, RBC 5.33, Hgb 14.6, Hct 44.7, MCV 83.9, MCH 27.4, MCHC 32.7, Plt Count 229, MPV 11.5, Immature Gran % (Auto) 0.300, Neut % (Auto) 83.7 H, Lymph % (Auto) 10.2 L, Rusk % (Auto) 5.1, Eos % (Auto) 0.3, Baso % (Auto) 0.4, Absolute Neuts (auto) 8.5 H, Nucleated RBC % 0 05/26/21 13:17: D-Dimer Quant (PE/DVT) 0.51 H* 05/26/21 13:17: Sodium 135 L, Potassium 4.0, Chloride 102, Carbon Dioxide 26.0, Anion Gap 7, BUN 16, Creatinine 1.43 H, Est GFR (MDRD) Af Amer 63, Est GFR (MDRD) Non-Af 52 L, BUN/Creatinine Ratio 11.2, Glucose 278 H, Calcium 8.9 05/26/21 13:17: B-Natriuretic Peptide 318.9 H 05/26/21 13:17: Magnesium 2.2 05/26/21 14:27: PT 12.9, INR 1.0, APTT 30.2 Rhythm: Sinus rhythm EKG: As noted above ECHO: 11-27-2020 Normal LV size. Moderate concentric left ventricular hypertrophy. Left ventricular systolic function is normal. The estimated ejection fraction is 60 %. Stage 1 diastolic dysfunction. Bioprosthetic aortic valve. Mild aortic stenosis. Stress Test: 12-23-2020 Pharmacologic myocardial perfusion stress test. 70-year-old man with a history of coronary artery disease with a left internal mammary to the left anterior descending artery, right radial to the distal right coronary artery and left radial as a Y graft sequence to the obtuse marginal branch of the circumflex artery. Replacement of the aortic valve with a 23 mm [place] trifecta bovine valve, closure of an atrial septal defect. Stress protocol: Resting EKG demonstrates normal sinus rhythm with a rate of 54 bpm and left bundle branch block pattern. 0.4 mg of regadenoson was infused per usual protocol followed by Intravenous saline flush injection continuous EKG monitoring was performed. The maximum heart rate attained was 74 bpm which was 49% of max impacted heart rate the maximum workload was 1 metabolic equivalent. At rest there were no ST or T wave changes noted to suggest abnormal flow reserve at peak infusion nonspecific ST changes were noted with no meet any criteria for abnormal flow reserve. Myocardial perfusion protocol. 14.8 mCi of technetium 99m sestamibi was injected at rest. 0.4 mg of regadenoson was infused per usual protocol. At peak infusion 44.9 mCi of technetium 99m sestamibi was injected stress images were obtained stress and rest images were reconstructed and compared in the short axis vertical long horizontal long axis. Gated images were also obtained. Perfusion SPECT analysis: Review of the images demonstrate a large defect noted in the anterior wall extending to the lateral segment. The septum inferior wall and inferolateral wall appear to be well perfused. The resting images demonstrate a similar pattern with minimal possible elizabeth-infarct ischemia noted. No obvious ischemia is present. Gated SPECT analysis: The gated ejection fraction is 47%. Conclusion: Pharmacologic myocardial perfusion stress test with no obvious ischemia noted. Large anterior lateral infarct noted. Mildly reduced ejection fraction. Cardiac Cath: 09-11-2019: [facility] Left main: Normal LAD: Mild diffuse disease LAD proximal: 95% stenosis LAD: Filling from the HODGES graft LCx: Mild diffuse disease LCx proximal: 80% stenosis RCA: Severe diffuse disease RCA mid: 100% stenosis HODGES to the LAD: Patent Left radial artery Y graft from the HODGES to the LAD: Patent Right radial artery to the RCA: Patent Recommendation: Medical therapy CT Surgery: 02-10-2012: [facility] HODGES to the LAD Left radial artery Y graft from the HODGES to the LAD going to OM 3/OM 4 Right radial artery going to RCA Aortic valve replacement with a 23 mm [place] Trifecta bovine pericardial aortic valve Closure of an atrial septal defect and a septal aneurysm of the interatrial septum Radiography Diagnostic Testing: Radiology Impression Chest X-Ray 05/26/21 13:00 IMPRESSION: Subtle interstitial opacifications and develop in the right lung since the previous study. Differential as described above. Follow-up recommended to ensure complete resolution Electronically Signed: Jaret Mcintyre MD at 13:34 EDT , Service support , Echocardiogram 05/26/21 14:47 Interpretation Summary The study was technically difficult. Contrast injection was performed. Moderately dilated left ventricle. Moderate segmental systolic dysfunction (see wall motion). The estimated ejection fraction is 30 %. The left atrium is mildly enlarged. There is moderate mitral annular calcification. Extension the mitral annular calcification onto the base of the posterior mitral valve leaflet. Mild (1+) mitral valve insufficiency. Trivial tricuspid valve insufficiency. Stable appearing bioprosthetic aortic valve apparatus. Mild diffuse aortic valve calcification. Mild aortic stenosis. Mild transvalvular insufficiency of the aortic valve. Unable to estimate RV systolic pressure/pulmonary artery pressure due to technically difficult study. Transmitral diastolic flow velocities suggest diastolic dysfunction (pseudonormal pattern). Ordering Physician: Jonah Valderrama Referring Physician: Juliano Bowles Performed By: Gareth Briceno RCS
[2021-05-26 20:27] VITALS: BP 125/68; PULSE 68; RESP 16; TEMP 37; O2SAT 96
[2021-05-26 21:17] LABS: Partial Thromboplast Time 194.9 Seconds (24.1-36.2)
[2021-05-26] MEDS: Atorvastatin Calcium 80 MG Tablet PO (21:34)
[2021-05-26 21:56] LABS: Bedside Glucose 153 mg/dL (70-110)
[2021-05-26] MEDS: TICAGRELOR 90 MG TABLET 180 MG PO (22:29)
[2021-05-27] VITALS (22 sets, daily range): BP systolic 89–123; BP diastolic 50–80; PULSE 58–95; RESP 18; TEMP 36.1–37.3; O2SAT 96–100
[2021-05-27] MEDS: 0.9% Normal Saline 1,000 ML 15 ML IV (02:54)
[2021-05-27 04:34] LABS: Absolute Lymphocyte Count 1.96 X10^3/uL (0.83-4.51); Absolute Neutrophil Count 6.3 X10^3/uL (2.0-7.7); Basophil# 0.06 X10^3/uL; Basophil% 0.7 % (0-1); Eosinophil# 0.21 X10^3/uL; Eosinophils% 2.3 % (0-5); Hematocrit 41.3 % (40-54); Hemoglobin 13.8 g/dL (13.0-16.5); Lymphocyte # 1.96 X10^3/ul (0.83-4.51); Lymphocyte % 21.3 % (19-41); Mean Corp Hgb Conc 33.4 g/dL (32-36); Mean Corpuscular Hgb 27.4 pg (27.0-32.0); Mean Corpuscular Volume 81.9 fL (80-94); Mean Platelet Vol. 11.6 fl (6.2-12.0); Monocyte# 0.66 X10^3/uL; Monocyte% 7.2 % (0-10); NRBC Flagged by Analyzer 0 % (0-5); Neutrophil # 6.28 X10^3/uL (2.7-7.7); Neutrophil % 68.1 % (47-70); Platelet Count 192 K/mm3 (150-450); RBC Distribution Width CV 13.1 % (11.6-14.6); RBC Distribution Width SD 38.9 fl (35.1-43.9); Red Blood Count 5.04 M/mm3 (4.6-6.2); White Blood Count 9.2 K/mm3 (4.4-11.0)
[2021-05-27 05:01] LABS: Anion Gap 11 (5-15); BUN 20 mg/dL (7-18); BUN/Creat Ratio 18.2 RATIO (10-20); Chloride 103 mmol/L (98-107); Cholesterol 177 mg/dL (200); EST Glomerular Filtration Rate 70 mL/min (>60); Est Glom Filt Rate - Afr Amer 85 mL/min (>60); Estimated Creatinine Clearance 67.61 ml/min; Glucose 149 mg/dL (74-106); High Density Lipoprotein 49 mg/dL; Phosphorus 2.8 mg/dL (2.5-4.9); Potassium 3.3 mmol/L (3.5-5.1); Sodium Level 138 mmol/L (136-145); Thyroid Stim Hormone (TSH) 1.88 uIU/mL (0.358-3.74); Triglycerides 216 mg/dL; Very Low Density Lipoprotein 43 mg/dL (5-40)
--- NOTE | 2021-05-27 05:30 | EKG12_ITS ---
Test Reason : SOB/GENERAL ILLNESS Blood Pressure : / mmHG Vent. Rate : 071 BPM Atrial Rate : 071 BPM P-R Int : 174 ms QRS Dur : 192 ms QT Int : 466 ms P-R-T Axes : 020 005 155 degrees QTc Int : 506 ms Normal sinus rhythm with sinus arrhythmia Left bundle branch block Abnormal ECG Confirmed by AMY LOPEZ, MICHELLE ([id number]), editorial project manager SASCHA RAMIREZ ([id number]) on 05/31/2021 9:31:06 AM Referred By: MARY/NIMA Confirmed By:MICHELLE REYES MD
[2021-05-27] MEDS: Lisinopril 5 MG Tablet PO (06:25)
[2021-05-27] MEDS: Aspirin 81 MG TAB.CHEW PO (06:27)
[2021-05-27] MEDS: Multivitamins,Therapeutic Tablet 1 TABLET PO (06:27)
[2021-05-27] MEDS: Metoprolol Tartrate 25 MG Tablet 12.5 MG PO (06:29)
[2021-05-27 06:55] LABS: Bedside Glucose 187 mg/dL (70-110)
--- NOTE | 2021-05-27 06:55 | NURSING ---
Report called to earthmoving labourer. Patient transported off unit by [employer].
--- NOTE | 2021-05-27 09:18 | CL.D_ITS ---
Patient Name: MARYCRUZ MEJIA [facility] Study Date: 05/27/2021 Performing: Rasheed Brooks MD Ht: 72 inches 183 cm : 1950 Wt: 275.9 lbs 125 kg Age: 70 Gender: male BSA: 2.44 PROCEDURE(S) PERFORMED BD52-UOI/COR/CABG DC11-AO ROOT ANGIO WITH HEART CATH CLINICAL PROFILE AND INDICATIONS Indications: Suspected CAD, LV Dysfunction, Cardiomyopathy Heart Failure: NYHA Class: 3, Newly Diagnosed: Yes, Heart Failure Type: Systolic Stress/Imaging Stress/Image Study Performed: No Angina Classification Anginal Classification w/in 2 Weeks: Anginal Equivalent Dyspnea CAD Presentations: Non-STEMI. CONCLUSIONS [place] Multivessel CAD Collateral Flow: left to left; left to right; right to left HODGES to LAD: patent with eccentric 25 - 50 % stenosis near the junction of the HODGES / Radial Artery Y graft connection Radial Artery Y graft (from the HODGES to LAD) to 2nd OM: patent Radial Artery graft to RCA: patent s/p AVR (bioprosthetic): stable appearing Aortic Valve Insufficiency Moderate Aortic Root dilated RECOMMENDATIONS Risk factor modification Medical therapy Surgery consult for valvular disease DESCRIPTION OF PROCEDURE The patient arrived to the procedure lab. The risks and benefits of the procedure as well as a full d escription of our services here and current unavailability of surgical backup were fully explained to the patient and/or their significant other prior to the catheterization. The Timeout was completed, verifying the correct patient and procedure. The patient's procedural site was prepped and draped in the usual fashion. Local anesthetic was given subcutaneously to right groin region with Lidocaine 2%. Using a modified Seldinger technique, arterial access was obtained via the right femoral artery, a 4 Fr sheath was inserted Left Coronary Artery selective angiography was performed in multiple views us ing a 4 Fr. JL5 catheter. Right Coronary Artery selective angiography was then performed in multiple views using a 4 Fr. 3DRC catheter. Radial graft to the RCA selective angiography was performed in mul tiple views using a 4 Fr. 3DRC catheter. Radial graft to the RCA selective angiography was performed in multiple views using a 4 Fr. JR4 catheter. Left internal mammary artery graft to the LAD and the Y Radial graft to the LAD and OM, selective angiography was performed in multiple views usin g a 4 Fr. IM catheter. Ascending (root) aorta selective angiography was then performed in single view . Ascending (root) aorta selective angiography was then performed in single view.The arterial sheath was pulled and manual compression applied until hemostasis is achieved. CORONARY ANGIOGRAPHY DOMINANCE: Right Dominant LEFT HEART ASSESSMENT Left Ventricular Ejection Fraction: Not assessed LEFT MAIN: Mild calcification, distal: 50 % Stenosis LEFT ANTERIOR DESCENDING ARTERY: OSTIAL LAD: is occluded CIRCUMFLEX ARTERY: OSTIAL CIRC: Moderate calcification, 95 % Stenosis PROX CIRC: Moderate calcification MID CIRC: 50 % Stenosis DISTAL CIRC: 25 % Stenosis OM 2: Distal - 95 % Stenosis RIGHT CORONARY ARTERY: MID RCA: is occluded RT PDA: Proximal - 50 % Stenosis GRAFTS: HODGES graft to the Mid LAD is patent with eccentric 25 - 50 % stenosis near the junction of the HODGES / Radial Artery Y graft connection Radial graft to the RCA is patent COLLATERAL FLOW: Collateral flow from Left to Left Collateral flow from Left to Right Collateral flow from Right to Left VALVE FINDINGS: s/p AVR (bioprosthetic): stable appearing Aortic Valve Insufficiency: Grade 2 AORTIC ROOT: Dilated COMPLICATIONS No Complications PROCEDURE MEDICATIONS Versed 1 mg IV Versed 1 mg IV Fentanyl 50 mcg IV Oxygen: 2 L/min via nasal cannula Atropine 1mg/10ml 0.5 amp @ 05/27/2021 08:36:44 IV Bolus: .9 NaCl 200 ml total 05/27/2021 08:39:24 SUMMARY OF HEMODYNAMIC DATA Time AIR REST ECG 07:11:54 AO 102/73 (87) SA 07:48:24 AO 108/76 (92) 07:48:48 Signed By Rasheed Brooks MD On 05/27/2021 9:16:50 AM Rasheed Brooks MD
[2021-05-27] MEDS: 0.9% Normal Saline 1,000 ML 75 ML IV (09:53)
[2021-05-27] MEDS: Furosemide 40 MG Tablet PO ×2 (09:55→16:57)
[2021-05-27] MEDS: Potassium Chloride Oral Tablet 20 MEQ 40 MEQ PO (09:55)
[2021-05-27] MEDS: Clopidogrel Bisulfate 75 MG Tablet PO (09:55)
--- NOTE | 2021-05-27 11:17 | CASEMGMT ---
RAMESH TABARES assessment: Face to Face with patient for initial transition planning/care coordination assessment. RN RAYSA introduced self and role at [facility], pt voices understanding and consents to assessment. Pt is sitting up in bed s/p heart cath with at bedside. Pt is in no distress. Pt is A/Ox4 and answers all questions appropriately. Care providers, pharmacy, and demographics verified. Presentation: Pt states was golfing and felt SOB, coughing, also c/o dizziness Admitting dx: ACS PCP: Jelena Specialists: Jasiel, pod; Tia, cardio Preferred Pharmacy: [facility] Insurance: [facility] A/B, AARP Prescription Benefit: Yes Living Will/HPOA: Pt states does not have LW/HPOA but would like information to take home and contact info to f/u. Info provided. Pt declines to complete here at this time. LNOK: Maryjo Ortiz, Living Arrangements: Pt lives with in 1 story home with basement and states no concerns at home. Pt is independent with ADL's. Transportation: Pt states drives self and states no transportation concerns. DME/HHC: Pt states no current DME or need for any DME. Pt states no hx of HHC but has been to [place] in the past. Pt states no concerns with going home at time of discharge. Pt is retired. Pt states does not smoke cigarettes or drink ETOH. Pt states no further concerns/needs. CM to follow for any further discharge planning/needs. Advised pt to ask for CM if any further questions/concerns/needs arise, voices understanding. Pt Goal: Home Plan[place] RAMESH TABARES
--- NOTE | 2021-05-27 11:21 | PN.HOSP_ITS ---
Documented by User: MEENU Mack 05/27/21 11:34 Subjective Subjective Patient seen and examined. Patient just returned from cardiac cath which was negative for acute coronary disease however it was noted that patient's bovine valve is leaking. Patient states that he is currently feeling fine but felt hot and slightly nauseous while in cardiac cath. Objective Data Objective Data Vital Signs: Vital Signs Temp Pulse Resp BP Pulse Ox 99.1 F 90 18 110/77 97 05/27/21 09:00 05/27/21 10:00 05/27/21 10:00 05/27/21 10:00 05/27/21 10:00 Oxygen Flow Rate (L/min) 2 Oxygen Delivery Method Nasal Cannula Weight: 276 lb 7.355 oz Body Mass Index (BMI) 38.0 Intake & Output: Intake and Output for Last 24 Hours 05/25/21 05/26/21 05/27/21 23:59 23:59 23:59 Intake Total 108.53 / 328.53 267.88 / 267.88 Output Total 750 / 750 Balance 108.53 / -171.47 -482.12 / -482.12 Lab / Micro Data Result Diagrams: 05/27/21 04:15 05/27/21 04:15 Labs: Laboratory Results - last 24 hr 05/26/21 13:17: WBC 10.2, RBC 5.33, Hgb 14.6, Hct 44.7, MCV 83.9, MCH 27.4, MCHC 32.7, RDW Std Deviation 39.5, RDW Coeff of Senia 13.0, Plt Count 229, MPV 11.5, Immature Gran % (Auto) 0.300, Neut % (Auto) 83.7 H, Lymph % (Auto) 10.2 L, Barber % (Auto) 5.1, Eos % (Auto) 0.3, Baso % (Auto) 0.4, Absolute Neuts (auto) 8.5 H, Absolute Lymphs (auto) 1.04, Nucleated RBC % 0 05/26/21 13:17: D-Dimer Quant (PE/DVT) 0.51 H* 05/26/21 13:17: Sodium 135 L, Potassium 4.0, Chloride 102, Carbon Dioxide 26.0, Anion Gap 7, BUN 16, Creatinine 1.43 H, Estim Creat Clear Calc 52.00, Est GFR (MDRD) Af Amer 63, Est GFR (MDRD) Non-Af 52 L, BUN/Creatinine Ratio 11.2, Glucose 278 H, Calcium 8.9, Troponin I High Sens 1867.9 H* 05/26/21 13:17: B-Natriuretic Peptide 318.9 H 05/26/21 13:17: Magnesium 2.2 05/26/21 14:27: PT 12.9, INR 1.0, APTT 30.2 05/26/21 15:47: Troponin I High Sens 6751.2 H* 05/26/21 20:20: Troponin I High Sens 25477.4 H* 05/26/21 20:20: APTT 194.9 H* 05/26/21 21:50: POC Glucose 153 H 05/27/21 04:15: WBC 9.2, RBC 5.04, Hgb 13.8, Hct 41.3, MCV 81.9, MCH 27.4, MCHC 33.4, RDW Std Deviation 38.9, RDW Coeff of Senia 13.1, Plt Count 192, MPV 11.6, Immature Gran % (Auto) 0.400, Neut % (Auto) 68.1, Lymph % (Auto) 21.3, Barber % (Auto) 7.2, Eos % (Auto) 2.3, Baso % (Auto) 0.7, Absolute Neuts (auto) 6.3, Absolute Lymphs (auto) 1.96, Nucleated RBC % 0 05/27/21 04:15: Sodium 138, Potassium 3.3 L, Chloride 103, Carbon Dioxide 24.0, Anion Gap 11, BUN 20 H, Creatinine 1.10, Estim Creat Clear Calc 67.61, Est GFR (MDRD) Af Amer 85, Est GFR (MDRD) Non-Af 70, BUN/Creatinine Ratio 18.2, Glucose 149 H, Calcium 9.0, Phosphorus 2.8, Triglycerides 216 H, Cholesterol 177, LDL Cholesterol 85, VLDL Cholesterol 43 H, HDL Cholesterol 49, TSH 1.88 05/27/21 06:46: POC Glucose 187 H Micro: Microbiology 05/26/21 14:31 Mucosa - Nose SARS-CoV-2 Antigen (Rapid) - Final Radiography Diagnostic Testing: Radiology Impression Chest X-Ray 05/26/21 13:00 IMPRESSION: Subtle interstitial opacifications and develop in the right lung since the previous study. Differential as described above. Follow-up recommended to ensure complete resolution Electronically Signed: Jaret Mcintyre MD at 13:34 EDT , Service support , Echocardiogram 05/26/21 14:47 Interpretation Summary The study was technically difficult. Contrast injection was performed. Moderately dilated left ventricle. Moderate segmental systolic dysfunction (see wall motion). The estimated ejection fraction is 30 %. The left atrium is mildly enlarged. There is moderate mitral annular calcification. Extension the mitral annular calcification onto the base of the posterior mitral valve leaflet. Mild (1+) mitral valve insufficiency. Trivial tricuspid valve insufficiency. Stable appearing bioprosthetic aortic valve apparatus. Mild diffuse aortic valve calcification. Mild aortic stenosis. Mild transvalvular insufficiency of the aortic valve. Unable to estimate RV systolic pressure/pulmonary artery pressure due to technically difficult study. Transmitral diastolic flow velocities suggest diastolic dysfunction (pseudonormal pattern). Ordering Physician: Jonah Vadlerrama Referring Physician: Juliano Bowles Performed By: Gareth Briceno RCS Physical Exam Narrative General: Alert, Oriented x3, Cooperative HEENT: Atraumatic, PERRLA, EOMI, Normocephalic Oral: No Gingival or Mucosal Lesions/ Ulcerations Neck: Supple, No JVD, Negative Carotid Bruits Lungs: Air entry equal in bilateral lung bases. No crepitation/rhonchi/wheezing Cardiovascular: Sinus rhythm with PAC, sinus arrhythmia, Normal S1, Normal S2, grade 3/6 systolic and diastolic right second ICS murmur. Abdomen: Bowel Sounds Present, Soft, Non Tender, Non-Distended : No renal angle tenderness. No suprapubic tenderness. Extremities: Subtle bilateral ankle edema, Capillary Refill Less than 3 Seconds Skin: No rashes, No breakdown Musculoskeletal: No Tenderness to Palpation of Joints or Extremities Neurological: Cranial nerves II-XII grossly intact, DTR 2+/4 and Symmetrical, Neuro grossly intact Psych/Mental Status: Normal Affect, Appropriate. Const alert, oriented x3 and no apparent distress HEENT normocephalic and head/scalp atraumatic Eyes conjunctivae normal and no scleral icterus Neck full ROM, supple and no JVD General: trachea midline Chest inspection of chest normal and palpation of chest normal Resp normal respiratory effort, normal air movement and clear to auscultation bilaterally Cardio regular rate, regular rhythm, S1 normal heart sound and S2 normal heart sound GI normal to inspection, nondistended, normoactive bowel sounds, soft to palpation and non-tender Back/Spine normal ROM and normal to inspection Extremity normal to inspection, full ROM, normal capillary refill and no clubbing, cyanosis or edema Peripheral Pulses: Yes pulses 2+ throughout Skin no rashes or lesions noted, no wounds and skin turgor normal Neuro oriented x3, moves all extremities, no focal motor deficits and no sensory deficits noted Psych mental status grossly normal, thought process normal, cooperative, affect normal, speech normal and activity/motor behavior normal Assessment & Plan Assessment/Plan (1) NSTEMI, initial episode of care: PLAN: 1. Non-STEMI with history of quadruple bypass in January 2012, bioprosthetic AVR, mild chronic HFpEF -Patient underwent cardiac catheterization which was negative for coronary disease however patient was noted to have a grade 2 aortic valve insufficiency status post AVR. Per cardiology patient information will be sent for to the valve replacement team at [facility] for evaluation and further follow-up regarding valve insufficiency. -Continue aspirin, metoprolol, lisinopril and high intensity statin. -2D echo shows EF 30%, 2D echo in November 2020 shows EF 60%, stage I diastolic dysfunction bioprosthetic aortic valve. -Trend serial isolated troponins. -BNP elevated but has been chronically elevated in April and is less than that. 2. Diabetes mellitus -Accu-Chek AC at bedtime with Humalog sliding scale and Lantus insulin. -Hold oral hypoglycemic agent. 3. Hypertension -Blood pressure is normal limit. -Continue metoprolol and lisinopril. 4. Obesity grade 3 -BMI 37.4 -Lifestyle modifications encouraged including diet and exercise DVT prophylaxis: Subcu Lovenox This patient was seen by Patti Bhatia, KEY-C under the supervision of Dr. Mcmanus. Documented by User: Dr. Be Mcmanus, DO 05/27/21 17:57 Objective Data Lab / Micro Data Result Diagrams: 05/27/21 04:15 05/27/21 04:15 Charges/Coding Addendum Addendum: Patient was seen and examined today independently of Stephania Bhatia, he underwent a cardiac catheterization which showed nonocclusive coronary disease, it was felt that the patient's cardiac problem was his aortic valve. On examination he appeared in good health and spirits. Vital signs as documented. Skin warm and dry and without overt rashes. Neck without JVD, neck was supple, trachea midline, thyroid was normal. Lungs clear bilaterally, normal air movement was noted. Heart exam notable for regular rhythm, normal sounds and absence of murmurs, rubs or gallops. Abdomen unremarkable and without evidence of organomegaly, masses, or abdominal aortic enlargement. Bowel sounds are present, abdomen is not distended. Extremities nonedematous, no cyanosis was n oted, no clubbing was noted. Neuro: Cranial nerves II through XII are grossly intact, no focal motor deficits were noted, sensation to light touch and pinprick intact, motor exam 5/5 throughout. Psych: Patient is alert and oriented x3, he does not appear anxious or depressed, he does not appear ag itated. Cardiology will continue to participate in his care and adjust his medications, I have reviewed Patti Bhatia's progress note including her medical assessment and plan of care and endorse it. Visit Charges Inpatient E&M: 12154 Subs Hosp L2
[2021-05-27] MEDS: Insulin Lispro 100 UNIT/ML INSULN.PEN SC (11:41)
[2021-05-27 12:25] LABS: Bedside Glucose 235 mg/dL (70-110)
--- NOTE | 2021-05-27 14:46 | NURSING ---
Patient up to chair post bedrest order. Site remains intact with no signs of bleeding or any complications. VSS.
[2021-05-27 17:00] LABS: Bedside Glucose 144 mg/dL (70-110)
--- NOTE | 2021-05-27 20:11 | PCM.PN.CARD ---
Subjective Subjective The patient underwent diagnostic cardiac catheterization earlier this day. Objective Data Vital Signs: Vital Signs Temp Pulse Resp BP Pulse Ox 97.5 F L 77 18 98/64 98 05/27/21 14:19 05/27/21 14:19 05/27/21 14:19 05/27/21 14:19 05/27/21 14:19 Oxygen Flow Rate (L/min) 2 Oxygen Delivery Method Room Air Weight: 276 lb 7.355 oz Body Mass Index (BMI) 38.0 Intake & Output: Intake and Output for Last 24 Hours 05/25/21 05/26/21 05/27/21 23:59 23:59 23:59 Intake Total 108.53 / 328.53 1281.63 / 1281.63 Output Total 750 / 750 Balance 108.53 / -171.47 531.63 / 531.63 Lab / Micro Data Result Diagrams: 05/27/21 04:15 05/27/21 04:15 Labs: Laboratory Results - last 24 hr 05/26/21 20:20: Troponin I High Sens 22944.4 H* 05/26/21 20:20: APTT 194.9 H* 05/26/21 21:50: POC Glucose 153 H 05/27/21 04:15: WBC 9.2, RBC 5.04, Hgb 13.8, Hct 41.3, MCV 81.9, MCH 27.4, MCHC 33.4, RDW Std Deviation 38.9, RDW Coeff of [place] 13.1, Plt Count 192, MPV 11.6, Immature Gran % (Auto) 0.400, Neut % (Auto) 68.1, Lymph % (Auto) 21.3, [place] % (Auto) 7.2, Eos % (Auto) 2.3, Baso % (Auto) 0.7, Absolute Neuts (auto) 6.3, Absolute Lymphs (auto) 1.96, Nucleated RBC % 0 05/27/21 04:15: Sodium 138, Potassium 3.3 L, Chloride 103, Carbon Dioxide 24.0, Anion Gap 11, BUN 20 H, Creatinine 1.10, Estim Creat Clear Calc 67.61, Est GFR (MDRD) Af Amer 85, Est GFR (MDRD) Non-Af 70, BUN/Creatinine Ratio 18.2, Glucose 149 H, Calcium 9.0, Phosphorus 2.8, Triglycerides 216 H, Cholesterol 177, LDL Cholesterol 85, VLDL Cholesterol 43 H, HDL Cholesterol 49, TSH 1.88 05/27/21 06:46: POC Glucose 187 H 05/27/21 11:33: POC Glucose 235 H 05/27/21 16:56: POC Glucose 144 H Cardiology Labs/Tests 05/26/21 20:20: APTT 194.9 H* 05/27/21 04:15: WBC 9.2, RBC 5.04, Hgb 13.8, Hct 41.3, MCV 81.9, MCH 27.4, MCHC 33.4, Plt Count 192, MPV 11.6, Immature Gran % (Auto) 0.400, Neut % (Auto) 68.1, Lymph % (Auto) 21.3, [place] % (Auto) 7.2, Eos % (Auto) 2.3, Baso % (Auto) 0.7, Absolute Neuts (auto) 6.3, Nucleated RBC % 0 05/27/21 04:15: Sodium 138, Potassium 3.3 L, Chloride 103, Carbon Dioxide 24.0, Anion Gap 11, BUN 20 H, Creatinine 1.10, Est GFR (MDRD) Af Amer 85, Est GFR (MDRD) Non-Af 70, BUN/Creatinine Ratio 18.2, Glucose 149 H, Calcium 9.0, Phosphorus 2.8, Triglycerides 216 H, Cholesterol 177, LDL Cholesterol 85, VLDL Cholesterol 43 H, HDL Cholesterol 49 Rhythm: Sinus rhythm EKG: Sinus rhythm; left bundle branch block Cardiac Cath: CONCLUSIONS [place] Multivessel CAD Collateral Flow: left to left; left to right; right to left HODGES to LAD: patent with eccentric 25 - 50 % stenosis near the junction of the HODGES / Radial Artery Y graft connection Radial Artery Y graft (from the HODGES to LAD) to 2nd OM: patent Radial Artery graft to RCA: patent s/p AVR (bioprosthetic): stable appearing Aortic Valve Insufficiency Moderate Aortic Root dilated RECOMMENDATIONS Risk factor modification Medical therapy Surgery consult for valvular disease DESCRIPTION OF PROCEDURE The patient arrived to the procedure lab. The risks and benefits of the procedure as well as a full description of our services here and current unavailability of surgical backup were fully explained to the patient and/or their significant other prior to the catheterization. The Timeout was completed, verifying the correct patient and procedure. The patient's procedural site was prepped and draped in the usual fashion. Local anesthetic was given subcutaneously to right groin region with Lidocaine 2%. Using a modified Seldinger technique, arterial access was obtained via the right femoral artery, a 4Fr sheath was inserted Left Coronary Artery selective angiography was performed in multiple views using a 4 Fr. JL5 catheter. Right Coronary Artery selective angiography was then performed in multiple views using a 4 Fr. 3DRC catheter. Radial graft to the RCA selective angiography was performed in multiple views using a 4 Fr. 3DRC catheter. Radial graft to the RCA selective angiography was performed in multiple views using a 4 Fr. JR4 catheter. Left internal mammary artery graft to the LAD and the Y Radial graft to the LAD and OM, selective angiography was performed in multiple views using a 4 Fr. IM catheter. Ascending (root) aorta selective angiography was then performed in single view. Ascending (root) aorta selective angiography was then performed in single view.The arterial sheath was pulled and manual compression applied until hemostasis is achieved. CORONARY ANGIOGRAPHY DOMINANCE: Right Dominant LEFT HEART ASSESSMENT Left Ventricular Ejection Fraction: Not assessed LEFT MAIN: Mild calcification, distal: 50 % Stenosis LEFT ANTERIOR DESCENDING ARTERY: OSTIAL LAD: is occluded CIRCUMFLEX ARTERY: OSTIAL CIRC: Moderate calcification, 95 % Stenosis PROX CIRC: Moderate calcification MID CIRC: 50 % Stenosis DISTAL CIRC: 25 % Stenosis OM 2: Distal - 95 % Stenosis RIGHT CORONARY ARTERY: MID RCA: is occluded RT PDA: Proximal - 50 % Stenosis GRAFTS: HODGES graft to the Mid LAD is patent with eccentric 25 - 50 % stenosis near the junction of the HODGES / Radial Artery Y graft connection Radial graft to the RCA is patent COLLATERAL FLOW: Collateral flow from Left to Left Collateral flow from Left to Right Collateral flow from Right to Left VALVE FINDINGS: s/p AVR (bioprosthetic): stable appearing Aortic Valve Insufficiency: Grade 2 AORTIC ROOT: Dilated Physical Exam Narrative This is a 70-year-old white male who appears to be resting reasonably comfortably at the moment in no acute distress. Const alert, oriented x3 and no apparent distress Orientation / Consciousness: awake HEENT normocephalic, head/scalp atraumatic and hearing grossly normal bilaterally Eyes PERRL, EOMs intact bilaterally and conjunctivae normal Neck full ROM, supple and no JVD Chest Chest: midline sternotomy incision Resp clear to auscultation bilaterally Cardio regular rate, regular rhythm, S1 normal heart sound and S2 normal heart sound Heart Sounds: murmur systolic III/ harsh mid left sternal border, LVOT and sternal notch GI normal to inspection, nondistended, normoactive bowel sounds Extremity General Extremity: edema bilateral lower extremity (Wearing bilateral support stockings) Details: mild Peripheral Pulses: Yes femoral pulses present right (No obvious bruit; no obvious hematoma) 2+ Skin no rashes or lesions noted Neuro oriented x3, moves all extremities, no focal motor deficits and no sensory deficits noted Psych mental status grossly normal Assessment & Plan Assessment/Plan (1) NSTEMI, initial episode of care: PLAN: The patient has findings compatible with an acute non-ST segment elevation [place]. Based upon his evaluation thus far this may be a type II event brought on by supply demand mismatch from his underlying diminished LV systolic function and concerns of CHF. At the present time he appears to be without acute symptoms and resting comfortably. He will continue to be monitored. He will continue medical therapy as deemed appropriate. (2) Atherosclerosis of coronary artery of [place] heart without angina pectoris: QUALIFIERS: Coronary Disease-Associated Artery/Lesion type: [place] artery Qualified Code(s): I25.10 - Atherosclerotic heart disease of [place] coronary artery without angina pectoris PLAN: The patient does have a history of extensive underlying CAD requiring CABG as described above. At the present time he will continue to be monitored and continue to receive medical management. He has undergone diagnostic cardiac catheterization. The results are as noted. He did not receive any additional revascularization therapy at this time. (3) H/O coronary artery bypass surgery: PLAN: The patient's CABG history has been reviewed. At the present time his most recent cardiac catheterization from 2019 demonstrated his arterial grafts to be patent. He has no venous grafts. There is concern as to whether there is been a change in his graft status leading to his current event. His grafts were evaluated. They appear to be patent. (4) History of aortic valve replacement: PLAN: The patient's aortic valve has been reassessed noninvasively. It appears to be stable. He does appear to have an element of mild aortic valve stenosis/insufficiency. Based upon the aortic root angiogram performed during his diagnostic cardiac catheterization there is concern is aortic valve insufficiency is at least moderate. At the present time, once stabilized, he will be referred as an outpatient back to [facility] for an outpatient consultation regarding his underlying valvular heart disease and whether or not he should be considered a candidate for a redo aortic valve surgical procedure versus a possible TAVR [id number] procedure. (5) History of atrial septal defect repair: PLAN: The patient also has a history of an atrial septal defect and atrial septal aneurysm repair. His echocardiogram did not suggest any new acute changes. He will continue to be followed. (6) Ischemic cardiomyopathy: PLAN: He appears to have an underlying ischemic mediated cardiomyopathy with diminished LV systolic function and LVEF. There is concern as to whether this could be contributing to his symptoms and his elevated cardiac enzymes. At the moment he will continue to be observed. He will continue optimization of his medical management. Depending upon his future clinical course, if his LVEF remains diminished as it is now, he will need to be considered for future ICD therapy. (7) HLD (hyperlipidemia): QUALIFIERS: Hyperlipidemia type: unspecified Qualified Code(s): E78.5 - Hyperlipidemia, unspecified PLAN: He should continue risk factor evaluation and care. (8) Essential hypertension: PLAN: His pressure will be followed with his medicines being adjusted accordingly. (9) Carotid artery stenosis: QUALIFIERS: Laterality: bilateral Qualified Code(s): I65.23 - Occlusion and stenosis of bilateral carotid arteries PLAN: He does have a history of bilateral carotid artery stenosis based on previous [facility] records. He should continue risk factor evaluation/medical therapy. Addt'l Comments The patient's case was discussed earlier this day at length with the patient and his spouse. This note was generated using a voice recognition system and there may be incorrect words, spelling or punctuation that were not noted when reviewing the office note prior to saving.
[2021-05-27] MEDS: Atorvastatin Calcium 80 MG Tablet PO (21:31)
[2021-05-27 21:51] LABS: Bedside Glucose 127 mg/dL (70-110)
[2021-05-28] VITALS (8 sets, daily range): BP systolic 110–121; BP diastolic 61–74; PULSE 61–89; RESP 16–18; TEMP 36.2–36.6; O2SAT 95–98
[2021-05-28 05:51] LABS: Absolute Lymphocyte Count 1.17 X10^3/uL (0.83-4.51); Absolute Neutrophil Count 5.2 X10^3/uL (2.0-7.7); Basophil# 0.04 X10^3/uL; Basophil% 0.5 % (0-1); Eosinophil# 0.23 X10^3/uL; Eosinophils% 3.1 % (0-5); Hematocrit 38.4 % (40-54); Hemoglobin 12.5 g/dL (13.0-16.5); Lymphocyte # 1.17 X10^3/ul (0.83-4.51); Mean Corp Hgb Conc 32.6 g/dL (32-36); Mean Corpuscular Hgb 27.7 pg (27.0-32.0); Mean Corpuscular Volume 85.1 fL (80-94); Mean Platelet Vol. 11.5 fl (6.2-12.0); Monocyte# 0.69 X10^3/uL; Monocyte% 9.4 % (0-10); NRBC Flagged by Analyzer 0 % (0-5); Neutrophil # 5.17 X10^3/uL (2.7-7.7); Neutrophil % 70.6 % (47-70); Platelet Count 181 K/mm3 (150-450); RBC Distribution Width CV 13.4 % (11.6-14.6); RBC Distribution Width SD 41.9 fl (35.1-43.9); Red Blood Count 4.51 M/mm3 (4.6-6.2); White Blood Count 7.3 K/mm3 (4.4-11.0)
[2021-05-28 06:22] LABS: Anion Gap 6 (5-15); BUN 20 mg/dL (7-18); BUN/Creat Ratio 18.9 RATIO (10-20); Calcium,Total 8.5 mg/dL (8.5-10.1); Chloride 109 mmol/L (98-107); Creatinine, Serum 1.06 mg/dL (0.70-1.30); EST Glomerular Filtration Rate 73 mL/min (>60); Est Glom Filt Rate - Afr Amer 88 mL/min (>60); Estimated Creatinine Clearance 70.16 ml/min; Glucose 143 mg/dL (74-106); Magnesium 2.1 mg/dL (1.6-2.6); Potassium 3.7 mmol/L (3.5-5.1); Sodium Level 141 mmol/L (136-145)
[2021-05-28] MEDS: Aspirin 81 MG TAB.CHEW PO (08:26)
[2021-05-28] MEDS: Furosemide 40 MG Tablet PO (08:26)
[2021-05-28] MEDS: Multivitamins,Therapeutic Tablet 1 TABLET PO (08:26)
[2021-05-28] MEDS: Metoprolol Tartrate 25 MG Tablet 12.5 MG PO (08:27)
[2021-05-28] MEDS: Lisinopril 5 MG Tablet PO (08:28)
[2021-05-28] MEDS: Clopidogrel Bisulfate 75 MG Tablet PO (08:28)
--- NOTE | 2021-05-28 08:41 | PN.CARD_ITS ---
Subjective Subjective The patient is awake and alert. He has been resting comfortably. He denies any acute symptoms or concerns. Objective Data Vital Signs: Vital Signs Temp Pulse Resp BP Pulse Ox 97.6 F L 61 18 118/61 98 05/28/21 08:00 05/28/21 08:27 05/28/21 08:00 05/28/21 08:27 05/28/21 08:00 Oxygen Flow Rate (L/min) 2 Oxygen Delivery Method Room Air Weight: 276 lb 0.3 oz Body Mass Index (BMI) 38.0 Intake & Output: Intake and Output for Last 24 Hours 05/26/21 05/27/21 05/28/21 23:59 23:59 23:59 Intake Total 108.53 / 328.53 1281.63 / 1281.63 Output Total 1500 / 1500 550 / 550 Balance 108.53 / -171.47 -218.37 / -218.37 -550 / -550 Lab / Micro Data Result Diagrams: 05/28/21 05:29 05/28/21 05:29 Labs: Laboratory Results - last 24 hr 05/27/21 11:33: POC Glucose 235 H 05/27/21 16:56: POC Glucose 144 H 05/27/21 21:29: POC Glucose 127 H 05/28/21 05:29: WBC 7.3, RBC 4.51 L, Hgb 12.5 L, Hct 38.4 L, MCV 85.1, MCH 27.7, MCHC 32.6, RDW Std Deviation 41.9, RDW Coeff of [place] 13.4, Plt Count 181, MPV 11.5, Immature Gran % (Auto) 0.400, Neut % (Auto) 70.6 H, Lymph % (Auto) 16.0 L, [place] % (Auto) 9.4, Eos % (Auto) 3.1, Baso % (Auto) 0.5, Absolute Neuts (auto) 5.2, Absolute Lymphs (auto) 1.17, Nucleated RBC % 0 05/28/21 05:29: Sodium 141, Potassium 3.7, Chloride 109 H, Carbon Dioxide 26.0, Anion Gap 6, BUN 20 H, Creatinine 1.06, Estim Creat Clear Calc 70.16, Est GFR (MDRD) Af Amer 88, Est GFR (MDRD) Non-Af 73, BUN/Creatinine Ratio 18.9, Glucose 143 H, Calcium 8.5, Magnesium 2.1 Cardiology Labs/Tests 05/28/21 05:29: WBC 7.3, RBC 4.51 L, Hgb 12.5 L, Hct 38.4 L, MCV 85.1, MCH 27.7, MCHC 32.6, Plt Count 181, MPV 11.5, Immature Gran % (Auto) 0.400, Neut % (Auto) 70.6 H, Lymph % (Auto) 16.0 L, [place] % (Auto) 9.4, Eos % (Auto) 3.1, Baso % (Auto) 0.5, Absolute Neuts (auto) 5.2, Nucleated RBC % 0 05/28/21 05:29: Sodium 141, Potassium 3.7, Chloride 109 H, Carbon Dioxide 26.0, Anion Gap 6, BUN 20 H, Creatinine 1.06, Est GFR (MDRD) Af Amer 88, Est GFR (MDRD) Non-Af 73, BUN/Creatinine Ratio 18.9, Glucose 143 H, Calcium 8.5, Magnesium 2.1 Rhythm: Sinus rhythm Physical Exam Narrative This is a 70-year-old white male who appears to be resting reasonably comfortably at the moment in no acute distress. Const alert, oriented x3 and no apparent distress Orientation / Consciousness: awake HEENT normocephalic, head/scalp atraumatic and hearing grossly normal bilaterally Eyes PERRL, EOMs intact bilaterally and conjunctivae normal Neck full ROM, supple and no JVD Chest Chest: midline sternotomy incision Resp clear to auscultation bilaterally Cardio regular rate, regular rhythm, S1 normal heart sound and S2 normal heart sound Heart Sounds: murmur systolic III/ harsh mid left sternal border, LVOT and sternal notch GI normal to inspection, nondistended, normoactive bowel sounds Extremity General Extremity: edema bilateral lower extremity (Wearing bilateral support stockings) Details: mild Peripheral Pulses: Yes femoral pulses present right (No obvious bruit; no obvious hematoma) 2+ Skin no rashes or lesions noted Neuro oriented x3, moves all extremities, no focal motor deficits and no sensory deficits noted Psych mental status grossly normal Assessment & Plan Assessment/Plan (1) NSTEMI, initial episode of care: PLAN: The patient has findings compatible with an acute non-ST segment elevation [place]. Based upon his evaluation thus far this may be a type II event brought on by supply demand mismatch from his underlying diminished LV systolic function and concerns of CHF. At the present time he appears to be without acute symptoms and resting comfortably. He will continue to be monitored. He will continue medical therapy as deemed appropriate. With respect to his medical management it may not be unreasonable for him to remain on antiplatelet agents such as clopidogrel/Plavix for period of time pending cardiovascular follow-up. (2) Atherosclerosis of coronary artery of [place] heart without angina pectoris: QUALIFIERS: Coronary Disease-Associated Artery/Lesion type: [place] artery Qualified Code(s): I25.10 - Atherosclerotic heart disease of [place] coronary artery without angina pectoris PLAN: The patient does have a history of extensive underlying CAD requiring CABG as described above. At the present time he will continue to be monitored and continue to receive medical management. He has undergone diagnostic cardiac catheterization. The results are as noted. He did not receive any additional revascularization therapy at this time. (3) H/O coronary artery bypass surgery: PLAN: The patient's CABG history has been reviewed. At the present time his most recent cardiac catheterization from 2019 demonstrated his arterial grafts to be patent. He has no venous grafts. There is concern as to whether there is been a change in his graft status leading to his current event. His grafts were evaluated. They appear to be patent. (4) History of aortic valve replacement: PLAN: The patient's aortic valve has been reassessed noninvasively. It appears to be stable. He does appear to have an element of mild aortic valve stenosis/insufficiency. Based upon the aortic root angiogram performed during his diagnostic cardiac catheterization there is concern is aortic valve insufficiency is at least moderate. At the present time, once stabilized, he will be referred as an outpatient back to [facility] for an outpatient consultation regarding his underlying valvular heart disease and whether or not he should be considered a candidate for a redo aortic valve surgical procedure versus a possible TAVR [id number] procedure. (5) History of atrial septal defect repair: PLAN: The patient also has a history of an atrial septal defect and atrial septal aneurysm repair. His echocardiogram did not suggest any new acute changes. He will continue to be followed. (6) Ischemic cardiomyopathy: PLAN: He appears to have an underlying ischemic mediated cardiomyopathy with diminished LV systolic function and LVEF. There is concern as to whether this could be contributing to his symptoms and his elevated cardiac enzymes. At the moment he will continue to be observed. He will continue optimization of his medical management. Depending upon his future clinical course, if his LVEF remains diminished as it is now, he will need to be considered for future ICD therapy. (7) HLD (hyperlipidemia): QUALIFIERS: Hyperlipidemia type: unspecified Qualified Code(s): E78.5 - Hyperlipidemia, unspecified PLAN: He should continue risk factor evaluation and care. (8) Essential hypertension: PLAN: His pressure will be followed with his medicines being adjusted accordingly. (9) Carotid artery stenosis: QUALIFIERS: Laterality: bilateral Qualified Code(s): I65.23 - Occlusion and stenosis of bilateral carotid arteries PLAN: He does have a history of bilateral carotid artery stenosis based on previous [facility] records. He should continue risk factor evaluation/medical therapy. Addt'l Comments Overall, at the present time, the patient will continue medical therapy. As noted above it may not be unreasonable for the patient to continue antiplatelet therapy with clopidogrel/Plavix pending future cardiovascular follow-up as well as his adjusted diuretic regimen. As previously discussed with the patient and his spouse, his cardiovascular records will be forwarded to the [facility] Main campus for evaluation by cardiology/CT surgery heart valve team for further recommendations regarding his aortic valve/AI and the potential need for redo aortic valve surgery or a possible TAVR [id number] procedure versus continued medical management and monitoring. This note was generated using a voice recognition system and there may be incorrect words, spelling or punctuation that were not noted when reviewing the office note prior to saving.
[2021-05-28] MEDS: Enoxaparin 40 MG/0.4 ML Syringe SC (09:45)
--- NOTE | 2021-05-28 09:50 | PCM.DC ---
Discharge Instructions Diet Discharge Diet: - (Resume previous diet) Activity Discharge Activity: Return to Normal Activity Weight Bearing Status: Full weight bearing Follow Up Care Test Results: Test results from this visit will be discussed in further detail at your follow-up appointment, if applicable. Discharge Plan Admission Admit Date/Time: 05/26/21 14:29 Primary Reason for Your Visit: non STEMI Attending Provider: Be Mcmanus Primary Care Provider: Juliano Bowles Consulting Providers: Rasheed Brooks Discharge Orders/Prescriptions Prescriptions: New clopidogrel 75 mg Tablet 75 mg PO DAILY Qty: 30 RF: 0 carvedilol 3.125 mg tablet 3.125 mg PO BID Qty: 60 RF: 0 potassium chloride 10 mEq tablet extended release 20 meq PO BID Qty: 120 RF: 0 Continued glimepiride 2 mg tablet 2 mg PO BID RF: 0 albuterol sulfate [ProAir HFA] 90 mcg/actuation HFA aerosol inhaler 2 puff INHALATION Q4H PRN PRN (Reason: Sob &/Or Wheezing) RF: 0 rosuvastatin 40 MG tablet 40 mg PO DAILY RF: 0 aspirin 81 mg tablet,chewable 162 mg PO DAILY RF: 0 multivitamin Tablet 1 tab PO DAILY RF: 0 lisinopril 10 mg tablet 10 mg PO DAILY RF: 0 furosemide [Lasix] 40 mg tablet 40 mg PO BID RF: 0 Referrals / Follow Up: Rasheed Brooks MD [STAFF PHYSICIAN] - See Referral Note (as directed) Juliano Bowles MD [Primary Care Provider] - Within 2 Weeks Disposition Disposition (needs filled in before D/C Order can be placed): Home, Self Care
--- NOTE | 2021-05-28 10:39 | DS.PCM_ITS ---
Documented by User: MEENU Mack 05/28/21 10:49 Providers Date of Admission: 05/26/21 Primary Care Physician: Dr. Juliano Bowles MD Consultations 05/26/21 14:47 Consult: Cardiology Routine Consulting Provider: Rasheed Brooks Reason for Consult: NSTEMI, SOB for 2 week, worening EMERGENT Consult: No MD Notified: Yes Date Notified: 05/26/21 Time Notified: 14:25 Method of Notification: Verbal Reason For Visit: ACUTE CORONARY SYNDROME Diagnosis Discharge Diagnosis (1) NSTEMI, initial episode of care: Status: Acute Code(s): I21.4 - Non-ST elevation (NSTEMI) myocardial infarction (2) Atherosclerosis of coronary artery of [place] heart without angina pectoris: Status: Chronic Code(s): I25.10 - Atherosclerotic heart disease of [place] coronary artery without angina pectoris Qualifiers: Coronary Disease-Associated Artery/Lesion type: [place] artery Qualified Code(s): I25.10 - Atherosclerotic heart disease of [place] coronary artery without angina pectoris (3) H/O coronary artery bypass surgery: Status: Resolved Code(s): Z95.1 - Presence of aortocoronary bypass graft (4) History of aortic valve replacement: Status: Resolved Code(s): Z95.2 - Presence of prosthetic heart valve (5) History of atrial septal defect repair: Status: Resolved Code(s): Z87.74 - Personal history of (corrected) congenital malformations of heart and circulatory system (6) Ischemic cardiomyopathy: Status: Chronic Code(s): I25.5 - Ischemic cardiomyopathy (7) HLD (hyperlipidemia): Status: Chronic Code(s): E78.5 - Hyperlipidemia, unspecified Qualifiers: Hyperlipidemia type: unspecified Qualified Code(s): E78.5 - Hyperlipidemia, unspecified (8) Essential hypertension: Status: Chronic Code(s): I10 - Essential (primary) hypertension (9) Carotid artery stenosis: Status: Chronic Code(s): I65.29 - Occlusion and stenosis of unspecified carotid artery Qualifiers: Laterality: bilateral Qualified Code(s): I65.23 - Occlusion and stenosis of bilateral carotid arteries Plan: 1. Non-STEMI with history of quadruple bypass in January 2012, bioprosthetic AVR, mild chronic HFpEF -Patient underwent cardiac catheterization which was negative for coronary disease however patient was noted to have a grade 2 aortic valve insufficiency status post AVR. Per cardiology patient information will be sent for to the valve replacement team at [facility] for evaluation and further outpatient follow-up regarding valve insufficiency. -Continue aspirin, metoprolol, lisinopril, furosemide, Plavix and high intensity statin. -2D echo shows EF 30%, 2D echo in November 2020 shows EF 60%, stage I diastolic dysfunction bioprosthetic aortic valve. -Trend serial isolated troponins. -BNP elevated but has been chronically elevated in April and is less than that. 2. Diabetes mellitus -Accu-Chek AC at bedtime with Humalog sliding scale and Lantus insulin. -Oral diabetic meds held over course of hospitalization, okay to restart upon discharge 3. Hypertension -Blood pressure is normal limit. -Continue metoprolol and lisinopril. 4. Obesity grade 3 -BMI 37.4 -Lifestyle modifications encouraged including diet and exercise DVT prophylaxis: Subcu Lovenox This patient was seen by MEENU Mack under the supervision of Dr. Mcmanus. Medications at Discharge Home Medications rosuvastatin 40 mg PO DAILY 06/19/18 albuterol sulfate 90 mcg/actuation aerosol inhaler 2 puff INHALATION Q4H PRN PRN g 07/10/19 glimepiride 2 mg tablet 2 mg PO BID tab 07/10/19 aspirin 81 mg chewable tablet 162 mg PO DAILY tab 05/19/21 furosemide [Lasix] 40 mg PO BID 05/26/21 multivitamin 1 tab PO DAILY 05/26/21 carvedilol 3.125 mg PO BID #60 tab 05/28/21 clopidogrel 75 mg PO DAILY #30 tab 05/28/21 potassium chloride 20 meq PO BID #120 tab 05/28/21 Physical Exam Const alert, oriented x3 and no apparent distress HEENT normocephalic and head/scalp atraumatic Eyes conjunctivae normal and no scleral icterus Neck full ROM, supple and no JVD Chest inspection of chest normal and palpation of chest normal Resp normal respiratory effort, normal air movement and clear to auscultation bilaterally Cardio regular rate, regular rhythm, S1 normal heart sound, S2 normal heart sound and peripheral pulses 2+ throughout GI normal to inspection, nondistended, normoactive bowel sounds, soft to palpation and non-tender Back/Spine normal ROM Extremity normal to inspection, full ROM, normal capillary refill and no clubbing, cyanosis or edema Skin no rashes or lesions noted, no wounds and skin turgor normal Neuro oriented x3, moves all extremities, no focal motor deficits, no sensory deficits noted and gait normal Psych mental status grossly normal, thought process normal, cooperative, affect normal and speech normal Medical Records Data Medical Nutrition Assessment Dietitian: Nutrition Therapy Diagnosis Start: 05/27/21 13:25 Freq: Status: Active Protocol: Document 05/27/21 13:26 RMA (Rec: 05/27/21 13:26 RMA [id number]) Nutrition Malnutrition Evidence of Malnutrition Exists No Intake Problem Decreased Nutrient Needs (specify) Etiology (sodium) r/t CHF and fluid status Signs/Symptoms as evidenced by BLE pitting 1+ edema. Status Active Problem Recommendation Dietitian Recommendations/Changes Change diet to cardiac; sodium -restricted/carbohydrate controlled diet. Fluid restriction as indicated . ONS not needed at this time. Follow up with additional diet education per patient request . Weight / BMI Weight Weight: 276 lb 0.3 oz Body Mass Index (BMI) 38.0 ABG / Lab / Microbiology Data Result Diagrams: 05/28/21 05:29 05/28/21 05:29 Laboratory: Laboratory Results - last 24 hr 05/27/21 11:33: POC Glucose 235 H 05/27/21 16:56: POC Glucose 144 H 05/27/21 21:29: POC Glucose 127 H 05/28/21 05:29: WBC 7.3, RBC 4.51 L, Hgb 12.5 L, Hct 38.4 L, MCV 85.1, MCH 27.7, MCHC 32.6, RDW Std Deviation 41.9, RDW Coeff of [place] 13.4, Plt Count 181, MPV 11.5, Immature Gran % (Auto) 0.400, Neut % (Auto) 70.6 H, Lymph % (Auto) 16.0 L, [place] % (Auto) 9.4, Eos % (Auto) 3.1, Baso % (Auto) 0.5, Absolute Neuts (auto) 5.2, Absolute Lymphs (auto) 1.17, Nucleated RBC % 0 05/28/21 05:29: Sodium 141, Potassium 3.7, Chloride 109 H, Carbon Dioxide 26.0, Anion Gap 6, BUN 20 H, Creatinine 1.06, Estim Creat Clear Calc 70.16, Est GFR (MDRD) Af Amer 88, Est GFR (MDRD) Non-Af 73, BUN/Creatinine Ratio 18.9, Glucose 143 H, Calcium 8.5, Magnesium 2.1 Microbiology: Microbiology 05/26/21 14:31 Mucosa - Nose SARS-CoV-2 Antigen (Rapid) - Final D/C Instructions Discharge Diet: - (Resume previous diet) Weight Bearing Status: Full weight bearing Meaningful Use Info Meaningful Use Diagnoses (Choose all that apply): None applicable Discharge Plan Admission Admit Date/Time: 05/26/21 14:29 Primary Reason for Your Visit: non STEMI Attending Provider: Be Mcmanus Primary Care Provider: Juliano Bowles Consulting Providers: Rasheed Brooks Discharge Orders/Prescriptions Prescriptions: New clopidogrel 75 mg Tablet 75 mg PO DAILY Qty: 30 RF: 0 carvedilol 3.125 mg tablet 3.125 mg PO BID Qty: 60 RF: 0 potassium chloride 10 mEq tablet extended release 20 meq PO BID Qty: 120 RF: 0 Continued glimepiride 2 mg tablet 2 mg PO BID RF: 0 albuterol sulfate [ProAir HFA] 90 mcg/actuation HFA aerosol inhaler 2 puff INHALATION Q4H PRN PRN (Reason: Sob &/Or Wheezing) RF: 0 rosuvastatin 40 MG tablet 40 mg PO DAILY RF: 0 aspirin 81 mg tablet,chewable 162 mg PO DAILY RF: 0 multivitamin Tablet 1 tab PO DAILY RF: 0 furosemide [Lasix] 40 mg tablet 40 mg PO BID RF: 0 Referrals / Follow Up: Rasheed Brooks MD [STAFF PHYSICIAN] - 08/17/21 10:15 am (Referral was put in for you to see a at [facility]. All records are faxed and they will be calling you in 1-2 weeks. If you do not hear anything reach out to office. ) Juliano Bowles MD [Primary Care Provider] - Within 1 Week (Please call and setup an appontment. ) Disposition Disposition (needs filled in before D/C Order can be placed): Home, Self Care Documented by User: Dr. Be Mcmanus DO 05/28/21 16:15 Providers Date of Admission: 05/26/21 Reason For Visit: ACUTE CORONARY SYNDROME Medications at Discharge Home Medications rosuvastatin 40 mg PO DAILY 06/19/18 albuterol sulfate 90 mcg/actuation aerosol inhaler 2 puff INHALATION Q4H PRN PRN g 07/10/19 glimepiride 2 mg tablet 2 mg PO BID tab 07/10/19 aspirin 81 mg chewable tablet 162 mg PO DAILY tab 05/19/21 furosemide [Lasix] 40 mg PO BID 05/26/21 multivitamin 1 tab PO DAILY 05/26/21 carvedilol 3.125 mg PO BID #60 tab 05/28/21 clopidogrel 75 mg PO DAILY #30 tab 05/28/21 potassium chloride 20 meq PO BID #120 tab 05/28/21 ABG / Lab / Microbiology Data Result Diagrams: 05/28/21 05:29 05/28/21 05:29 Discharge Plan Admission Admit Date/Time: 05/26/21 14:29 Primary Reason for Your Visit: non STEMI Attending Provider: Be Mcmanus Primary Care Provider: Juliano Bowles Consulting Providers: Rasheed Brooks Discharge Orders/Prescriptions Prescriptions: New clopidogrel 75 mg Tablet 75 mg PO DAILY Qty: 30 RF: 0 carvedilol 3.125 mg tablet 3.125 mg PO BID Qty: 60 RF: 0 potassium chloride 10 mEq tablet extended release 20 meq PO BID Qty: 120 RF: 0 Continued glimepiride 2 mg tablet 2 mg PO BID RF: 0 albuterol sulfate [ProAir HFA] 90 mcg/actuation HFA aerosol inhaler 2 puff INHALATION Q4H PRN PRN (Reason: Sob &/Or Wheezing) RF: 0 rosuvastatin 40 MG tablet 40 mg PO DAILY RF: 0 aspirin 81 mg tablet,chewable 162 mg PO DAILY RF: 0 multivitamin Tablet 1 tab PO DAILY RF: 0 furosemide [Lasix] 40 mg tablet 40 mg PO BID RF: 0 Referrals / Follow Up: Rasheed Brooks MD [STAFF PHYSICIAN] - 08/17/21 10:15 am (Referral was put in for you to see a DrBrice at [facility]. All records are faxed and they will be calling you in 1-2 weeks. If you do not hear anything reach out to office. ) Juliano Bowles MD [Primary Care Provider] - Within 1 Week (Please call and setup an appontment. ) Disposition Disposition (needs filled in before D/C Order can be placed): Home, Self Care Charges/Coding Addendum Addendum: Patient was seen and examined today independently of Stephania Bhatia, I talked briefly with cardiology today and verified that the patient was stable for discharge today. On examination he appeared in good health and spirits. Vital signs as documented. Skin warm and dry and without overt rashes. Neck without JVD, neck was supple, trachea midline, thyroid was normal. Lungs clear bilaterally, normal air movement was noted. Heart exam notable for regular rhythm, normal sounds and absence of murmurs, rubs or gallops. Abdomen unremarkable and without evidence of organomegaly, masses, or abdominal aortic enlargement. Bowel sounds are present, abdomen is not distended. Extremities nonedematous, no cyanosis was noted, no clubbing was noted. Neuro: Cranial nerves II through XII are grossly intact, no focal motor deficits were noted, sensation to light touch and pinprick intact, motor exam 5/5 throughout. Psych: Patient is alert and oriented x3, he does not appear anxious or depressed, he does not appear agitated. Patient was discharged home today in stable condition, I have reviewed Stephania Bhatia's discharge summary including her medical assessment and plan of care and endorse it. Visit Charges Inpatient E&M: [id number] Disch Hosp
--- NOTE | 2021-05-31 15:19 | CASEMGMT ---
RAMESH TABARES Discharge Follow-up Phone Call: RONNIEMarsha: Armand Strata: 3 Call Date: 05/31/21 Discharge Date: 05/28/21 Time of Call: 1520 Duration: 3 min Admitting Diagnosis: Acute Coronary syndrome RAMESH TABARES completed follow-up phone call after recent hospitalization. Patient states he is doing well. Patient states he has no questions regarding discharge instructions. Patient was able to fill prescriptions without any issues. Patient has follow-up appts scheduled. Patient had no further questions or concerns at this time.
== END 2021-05-28 11:32 | disposition home or self-care (01) | DRG 281 ==
LOC: ED 14:12 → PCU 14:44
PROVIDERS: Internal Medicine Cardiovascular Disease; Admitting Provider Internal Medicine; Emergency Provider Emergency Medicine; PCP Family Medicine; Visit Provider Internal Medicine
DX: I35.1 Nonrheumatic aortic (valve) insufficiency (principal); I21.A1 Myocardial infarction type 2; I50.22 Chronic systolic (congestive) heart failure; E11.9 Type 2 diabetes mellitus without complications; I11.0 Hypertensive heart disease with heart failure; E66.9 Obesity, unspecified; Z68.37 Body mass index [BMI] 37.0-37.9, adult; Z95.3 Presence of xenogenic heart valve; Z79.84 Long term (current) use of oral hypoglycemic drugs; Z79.899 Other long term (current) drug therapy; I25.10 Atherosclerotic heart disease of native coronary artery without angina pectoris; Z95.1 Presence of aortocoronary bypass graft; I25.5 Ischemic cardiomyopathy; E78.5 Hyperlipidemia, unspecified; I65.23 Occlusion and stenosis of bilateral carotid arteries; Z87.74 Personal history of (corrected) congenital malformations of heart and circulatory system
CPT/HCPCS: 36415; 71045; 80048; 80061; 82962; 83735; 83880; 84100; 84443; 84484; 85025; 85379; 85610; 85730; 87426; 93005; 93306; 93455; 93459; 93567; 99152; 99153; 99251; 99282; J7030; Q9957; Q9967; A4216; C1769; C1894; C8929; G0463; J1940; J3490

== ENCOUNTER 2021-07-11 03:24 | Emergency (ER) | payer MEDICARE, OTHER, SELFPAY ==
[2021-07-11 03:25] VITALS: BP 106/72; PULSE 72; RESP 16; TEMP 36.3; O2SAT 98; BMI 36.3
--- NOTE | 2021-07-11 03:48 | EDS_ITS ---
HPI History of Present Illness Chief Complaint: Upper Extremity Injury Informant: patient Onset/Context/Timing Onset: Today Context: Gradual Onset Timing: Continuous Quality of Pain: Aching Location: Left shoulder and left wrist Worsened by: Movement Relieved by: Nothing Associated Symptoms Associated Symptoms: Negative for Parasthesia and Weakness Narrative Narrative: Patient presents with pain in his left shoulder and left wrist that began today. Patient states it was gradually getting worse throughout the day today. Patient describes his pain as aching. Patient states his pain is worse with movement. Patient states nothing seems to help with it. Patient denies any paresthesias or weakness. Patient denies any trauma or injury. Patient denies any fevers or chills. Patient denies any chest pain or shortness of breath. [facility] Medical History ASD (atrial septal defect) Atherosclerosis of coronary artery of [place] heart without angina pectoris Carotid artery stenosis Chronic systolic (congestive) heart failure Diabetes mellitus, type II Essential hypertension HLD (hyperlipidemia) Ischemic cardiomyopathy Left bundle branch block (LBBB) Morbid obesity Near syncope Non-smoker Nonrheumatic aortic (valve) stenosis Old anterolateral wall myocardial infarction Syncope Home Medications rosuvastatin 40 mg PO DAILY 06/19/18 [History Last Taken 05/26/21] albuterol sulfate 90 mcg/actuation aerosol inhaler 2 puff INHALATION Q4H PRN PRN g 07/10/19 [History Last Taken 05/25/21] glimepiride 2 mg tablet 2 mg PO BID tab 07/10/19 [History Last Taken 05/26/21] aspirin 81 mg chewable tablet 162 mg PO DAILY tab 05/19/21 [History Last Taken 05/26/21] multivitamin 1 tab PO DAILY 05/26/21 [History Last Taken 05/26/21] carvedilol 3.125 mg PO BID #60 tab 05/28/21 [Rx Last Taken Unknown] clopidogrel 75 mg PO DAILY #30 tab 05/28/21 [Rx Last Taken Unknown] potassium chloride 20 meq PO BID #120 tab 05/28/21 [Rx Last Taken Unknown] furosemide 40 mg tablet 40 mg PO BID #180 tab 06/14/21 [Rx Last Taken Unknown] meloxicam 15 mg PO DAILY #10 tab 07/11/21 [Rx Last Taken Unknown] Allergy/AdvReac Type Severity Reaction Status Date / Time codeine AdvReac Intermediate constipatio Verified 07/11/21 03:29 n Family History Father CAD (coronary artery disease) Surgical History H/O coronary artery bypass surgery (02/10/12) History of aortic valve replacement (02/10/12) History of atrial septal defect repair (02/10/12) History of left heart catheterization (05/27/21) History of tonsillectomy Social History Smoking Status: Never smoker alcohol intake: never substance use type: does not use caffeine: Yes ROS ROS ED Constitutional Constitutional ED: Denies chills or fever(s) Eyes Eyes: Denies blurry vision or change in vision ENT ENT ED: Denies rhinorrhea or sore throat Cardiovascular Cardiovascular: Denies chest pain or palpitations Respiratory/Chest Respiratory/Chest: Denies cough or dyspnea Gastrointestinal Gastrointestinal: Denies nausea or vomiting Genitourinary Genitourinary ED: Denies dysuria or hematuria Musculoskeletal Musculoskeletal: Denies back pain or neck pain Integumentary Denies abscess or rash Neurologic Neurologic: Denies headache(s) or weakness Allergic/Immunologic Allergic/Immunologic ED: Denies mouth swelling or urticaria EXAM Physical Exam Const Vital Signs: 07/11/21 03:25 Temperature 97.4 F L Temperature Source Temporal Pulse Rate 72 Respiratory Rate 16 Blood Pressure 106/72 Blood Pressure Mean 83 Pulse Ox 98 Oxygen Delivery Method Room Air Positive well nourished, well developed and obese General Appearance ED: well developed Nutritional Appearance: obese HEENT Reports moist mucous membranes Neck full ROM and supple Chest Wall inspection of chest normal and palpation of chest normal Resp normal respiratory effort and clear to auscultation bilaterally Cardio regular rate and regular rhythm GI non-tender and non-distended Palpation: soft Extremity Extremity Narrative: There is mild tenderness over the left shoulder area. There is no bony crepitance or step-off. There is no deformity noted. Range of motion was slightly limited in all motions of the left shoulder secondary to pain. There is also tenderness over the left wrist area. There is some mild edema. There is no ecchymosis. There is no deformity noted. Range of motion was limited in all motions of the wrist secondary to pain. Reinaldo's test is positive. Radial pulses are equal bilaterally. Sensation was intact to light touch in all digits. Capillary refill was less than 2 seconds in all digits. Strength is 5/5 in the right radial, median, and ulnar areas. Neuro oriented x3, CN's II-XII intact bilaterally, moves all extremities and no focal motor deficits Sensorium / Orientation: alert Psych mental status grossly normal MDM MDM MDM Narrative Medical decision making narrative: Patient was given a dose of hydrocodone here. CBC was within normal limits. Sed rate was elevated at 42. Basic metabolic profile was obtained. Creatinine was slightly elevated 1.33. BUN was 25. CRP was elevated at 18.1. X-rays of the left wrist were obtained. There are 3 views. On my interpretation, there is no acute fracture. There is no dislocation. There are some degenerative changes and some mild soft tissue swelling. Radiologist also interpreted the x-rays and agrees. X-rays of the left shoulder were obtained. There are 4 views. On my interpretation, there is no acute fracture. There is no dislocation. There is no soft tissue swelling. There are some degenerative changes of the AC joint. Radiologist also interpreted the x-rays and agrees. Patient was feeling better on reevaluation. Patient was given a prescription for meloxicam. Patient was instructed use ice to the area. Patient was instructed to follow-up with his primary care physician in 5 to 7 days. Patient understood and was agreeable with the plan. All questions were answered. Discharge Plan Triage Chief Complaint: Upper Extremity Injury ED Provider: Brooks Lange Dx/Rx/DC Orders Clinical Impression: Reactive arthritis of left wrist Instructions: ED Osteoarthritis, ED Shoulder Pain, Uncertain Cause Prescriptions: New meloxicam 15 mg tablet 15 mg PO DAILY Qty: 10 RF: 0 No Action glimepiride 2 mg tablet 2 mg PO BID RF: 0 albuterol sulfate [ProAir HFA] 90 mcg/actuation HFA aerosol inhaler 2 puff INHALATION Q4H PRN PRN (Reason: Sob &/Or Wheezing) RF: 0 rosuvastatin 40 MG tablet 40 mg PO DAILY RF: 0 aspirin 81 mg tablet,chewable 162 mg PO DAILY RF: 0 multivitamin Tablet 1 tab PO DAILY RF: 0 clopidogrel 75 mg Tablet 75 mg PO DAILY Qty: 30 RF: 0 carvedilol 3.125 mg tablet 3.125 mg PO BID Qty: 60 RF: 0 potassium chloride 10 mEq tablet extended release 20 meq PO BID Qty: 120 RF: 0 furosemide [Lasix] 40 mg tablet 40 mg PO BID Qty: 180 RF: 3 Primary Care Provider: Juliano Bowles Referrals: Juliano Bowles MD [Primary Care Provider] - 3-5 Days Disposition Disposition: Home, Self Care
--- NOTE | 2021-07-11 04:00 | RAD_ITS ---
STUDY: X-RAY - LEFT SHOULDER REASON FOR EXAM: Male, 70 years old. Injury/Pain TECHNIQUE: 4 view(s) of the shoulder. COMPARISON: None. FINDINGS: Normal glenohumeral articulation. There is hypertrophic osteoarthrosis of the acromioclavicular joint with inferior osseous spur formation. Normal acromion. Normal humeral head and visualized proximal humerus. The soft tissue structures are unremarkable. Normal visualized pulmonary apex. RAD/Shoulder min 2 Views IMPRESSION: Degenerative changes of the AC joint. No demonstrated fracture, dislocation, or destructive osseous lesion. Electronically Signed: Artemio Lopez MD at 5:19 EDT , Service support ,
[2021-07-11 04:08] LABS: Erythrocyte Sedimentation Rate 42 mm/hr (0-20)
--- NOTE | 2021-07-11 04:09 | RAD_ITS ---
STUDY: X-RAY - LEFT WRIST REASON FOR EXAM: Male, 70 years old. Injury/Pain TECHNIQUE: 3 view(s) of the wrist were obtained. COMPARISON: None. FINDINGS: Normal visualized distal radius and ulna. Normal radiocarpal articulation. Normal distal radioulnar articulation. Normal carpal bones. Normal carpal articulations. There is degenerative arthrosis of the carpometacarpal articulation of the thumb. Normal second through fifth carpometacarpal articulations. Normal visualized metacarpal bones. The soft tissue structures are unremarkable. RAD/Wrist min 3 Views IMPRESSION: Degenerative changes of first carpometacarpal articulation. No demonstrated fracture, dislocation, or destructive osseous lesion. Electronically Signed: Artemio Lopez MD at 5:14 EDT , Service support ,
[2021-07-11 04:10] LABS: Absolute Lymphocyte Count 1.16 X10^3/uL (0.83-4.51); Absolute Neutrophil Count 7.2 X10^3/uL (2.0-7.7); Basophil# 0.03 X10^3/uL; Basophil% 0.3 % (0-1); Eosinophil# 0.29 X10^3/uL; Eosinophils% 3.1 % (0-5); Hematocrit 41.1 % (40-54); Hemoglobin 13.7 g/dL (13.0-16.5); Lymphocyte # 1.16 X10^3/ul (0.83-4.51); Lymphocyte % 12.2 % (19-41); Mean Corp Hgb Conc 33.3 g/dL (32-36); Mean Corpuscular Hgb 27.5 pg (27.0-32.0); Mean Corpuscular Volume 82.5 fL (80-94); Mean Platelet Vol. 11.1 fl (6.2-12.0); Monocyte# 0.75 X10^3/uL; Monocyte% 7.9 % (0-10); NRBC Flagged by Analyzer 0 % (0-5); Neutrophil # 7.23 X10^3/uL (2.7-7.7); Neutrophil % 76.2 % (47-70); Platelet Count 221 K/mm3 (150-450); RBC Distribution Width CV 13.2 % (11.6-14.6); RBC Distribution Width SD 39.7 fl (35.1-43.9); Red Blood Count 4.98 M/mm3 (4.6-6.2); White Blood Count 9.5 K/mm3 (4.4-11.0)
[2021-07-11 04:22] LABS: Anion Gap 7 (5-15); BUN 25 mg/dL (7-18); BUN/Creat Ratio 18.8 RATIO (10-20); Calcium,Total 8.6 mg/dL (8.5-10.1); Chloride 104 mmol/L (98-107); Creatinine, Serum 1.33 mg/dL (0.70-1.30); EST Glomerular Filtration Rate 56 mL/min (>60); Est Glom Filt Rate - Afr Amer 68 mL/min (>60); Estimated Creatinine Clearance 55.91 ml/min; Glucose 184 mg/dL (74-106); Potassium 4.1 mmol/L (3.5-5.1); Sodium Level 135 mmol/L (136-145)
[2021-07-11 07:29] VITALS: PULSE 76; RESP 18; O2SAT 97
== END 2021-07-11 07:30 | disposition home or self-care (01) ==
PROVIDERS: Emergency Provider Emergency Medicine; PCP Family Medicine
DX: M19.032 Primary osteoarthritis, left wrist (principal); E66.9 Obesity, unspecified; I25.2 Old myocardial infarction; I25.10 Atherosclerotic heart disease of native coronary artery without angina pectoris
CPT/HCPCS: 73030; 73110; 80048; 85025; 85652; 86140; 99283; A4216

== ENCOUNTER 2021-09-27 09:04 | Emergency (ER) | payer MEDICARE, OTHER, SELFPAY ==
[2021-09-27] VITALS (8 sets, daily range): BP systolic 98–124; BP diastolic 63–75; PULSE 75–111; RESP 16–31; TEMP 36.5; O2SAT 96–100; BMI 38.4
--- NOTE | 2021-09-27 09:14 | EKG12_ITS ---
Test Reason : Blood Pressure : / mmHG Vent. Rate : 110 BPM Atrial Rate : 110 BPM P-R Int : 168 ms QRS Dur : 186 ms QT Int : 416 ms P-R-T Axes : 000 015 177 degrees QTc Int : 562 ms Sinus tachycardia Left bundle branch block Abnormal ECG Confirmed by AMY LOPEZ, MICHELLE ([id number]), supervising editor trailer SASCHA RAMIREZ ([id number]) on 09/29/2021 10:30:53 AM Referred By: BOUCHRA Confirmed By:MICHELLE REYES MD
--- NOTE | 2021-09-27 09:14 | RAD_ITS ---
STUDY: X-RAY CHEST REASON FOR EXAM: Male, 70 years old. Weakness. TECHNIQUE: Single AP portable view of the chest. COMPARISON: Comparison is made with prior study dated 05/26/2021. FINDINGS: EKG electrodes are seen. Left lower lobe infiltrate with blunting of the left costophrenic angle. Mild increased markings at the right lung base with blunting of the right costophrenic angle. Sternal cerclage wires are present from a prior sternotomy. The patient is status post mitral valve replacement. Normal mediastinum and jane. Normal visualized pulmonary arteries. There is atherosclerotic calcification of the aortic arch with tortuosity. Normal visualized thoracic spine. Normal visualized ribs, clavicles, and shoulders. There is no demonstrated abnormality of the visualized soft tissue structures of the upper abdomen. RAD/Chest 1 View (Portable) IMPRESSION: Bibasilar patchy infiltrates worse on the left side with blunting of both costophrenic angles. Electronically Signed: Jacques Ng MD at 9:50 EST , Service support ,
--- NOTE | 2021-09-27 09:15 | EX.ED.DYSGE1 ---
HPI History of Present Illness Chief Complaint: General Illness Narrative Narrative: 70-year-old male presenting with a sensation of burning up all over. Patient states that started this morning. Patient states he initially had trouble getting standing up and states he was able to do this. The burning of sensation has resolved. Patient states he has not had a fever at home. Patient has no nausea or vomiting. He has no diarrhea. He denies chest pain, palpitations. He feels a little bit short of breath. Patient denies abdominal pain. 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 Syncope Home Medications rosuvastatin 40 mg PO DAILY 06/19/18 [History Last Taken 05/26/21] albuterol sulfate 90 mcg/actuation aerosol inhaler 2 puff INHALATION Q4H PRN PRN g 07/10/19 [History Last Taken 05/25/21] glimepiride 2 mg tablet 2 mg PO BID tab 07/10/19 [History Last Taken 05/26/21] aspirin 81 mg chewable tablet 81 mg PO DAILY tab 05/19/21 [History Last Taken 05/26/21] multivitamin 1 tab PO DAILY 05/26/21 [History Last Taken 05/26/21] carvedilol 3.125 mg PO BID #60 tab 05/28/21 [Rx Last Taken Unknown] clopidogrel 75 mg PO DAILY #30 tab 05/28/21 [Rx Last Taken Unknown] potassium chloride 20 meq PO BID #120 tab 05/28/21 [Rx Last Taken Unknown] furosemide 40 mg tablet 40 mg PO BID #180 tab 06/14/21 [Rx Last Taken Unknown] meloxicam 15 mg PO DAILY #10 tab 07/11/21 [Rx Last Taken Unknown] sacubitril 49 mg-valsartan 51 mg tablet 1 tab PO BID 08/17/21 [History Last Taken Unknown] Allergy/AdvReac Type Severity Reaction Status Date / Time codeine AdvReac Intermediate constipatio Verified 09/27/21 09:09 n Family History Father CAD (coronary artery disease) Surgical History H/O coronary artery bypass surgery (02/10/12) History of aortic valve replacement (02/10/12) History of aortic valve replacement History of atrial septal defect repair (02/10/12) History of left heart catheterization (05/27/21) History of right heart catheterization (08/09/21) History of tonsillectomy Social History Smoking Status: Never smoker alcohol intake: never substance use type: does not use caffeine: Yes ROS ROS ED Constitutional Constitutional ED: Reports other Details: Feeling hot ; Denies chills or fever(s) Eyes Eyes: Denies blurry vision or change in vision ENT ENT ED: Denies rhinorrhea or sore throat Cardiovascular Cardiovascular: Denies chest pain or palpitations Respiratory/Chest Respiratory/Chest: Reports dyspnea; Denies cough Gastrointestinal Gastrointestinal: Denies abdominal pain, nausea or vomiting Genitourinary Genitourinary ED: Denies dysuria or hematuria Musculoskeletal Musculoskeletal: Denies arthralgias, myalgias or neck pain Integumentary Denies abscess or rash Neurologic Neurologic: Denies headache(s) or paresthesias Psychiatric Psychiatric: Denies anxiety or depression EXAM Physical Exam Const Vital Signs: 09/27/21 09:04 09/27/21 09:08 09/27/21 09:13 Temperature 97.7 F L 97.7 F L Temperature Source Oral Temporal Pulse Rate 111 H 111 H Respiratory Rate 31 H 22 H Respiratory Effort Normal Non-Labored Respiratory Pattern Normal Blood Pressure 124/75 H 124/75 H Blood Pressure Mean 91 91 Pulse Ox 100 96 Oxygen Delivery Method Room Air 09/27/21 09:23 09/27/21 09:42 09/27/21 10:04 Temperature Temperature Source Pulse Rate 107 H Respiratory Rate 26 H Respiratory Effort Respiratory Pattern Blood Pressure 98/66 104/74 Blood Pressure Mean 76 84 Pulse Ox 96 96 Oxygen Delivery Method Room Air Room Air 09/27/21 11:04 09/27/21 12:04 09/27/21 13:17 Temperature Temperature Source Pulse Rate 82 110 H 75 Respiratory Rate 19 H 16 17 Respiratory Effort Respiratory Pattern Blood Pressure 112/64 118/63 115/74 Blood Pressure Mean 80 81 Pulse Ox 97 97 96 Oxygen Delivery Method Room Air Room Air Positive well nourished General Appearance ED: NAD; Negative for pallor HEENT Reports moist mucous membranes Negative for trauma Eyes PERRL and EOMs intact bilaterally Resp normal respiratory effort and clear to auscultation bilaterally Cardio regular rhythm Rate: tachycardic GI normal to inspection, nondistended, normoactive bowel sounds Neuro oriented x3 and CN's II-XII intact bilaterally Sensorium / Orientation: alert Psych mental status grossly normal Skin General Skin Exam: Negative for jaundice or pallor MDM MDM MDM Narrative Medical decision making narrative: Patient presenting with a little bit of weakness but is able to ambulate. He states this is not uncommon for him to have difficulty getting out of a chair. He states he felt hot all over but has not a fever or chills. He has a little bit of dyspnea but this is his baseline. Is not having chest pain, abdominal pain, nausea, vomiting, body aches. His signs are initially abnormal but after he is relaxed sitting in bed his blood pressure is 119/63 heart rate 110, respirate 16 pulse ox 97% on room air. I obtain blood work and his CBC shows his white blood cell count is 10.4, hemoglobin 10.3. This appears lower than previous in our system however from his recent blood work with [facility] his hemoglobin was 9.7 on 09/23/2021. This is actually improved. Renal function and electrolytes are normal. High-sensitivity troponin is initially 92. Delta troponin is 91 at 2 hours. BNP is slightly elevated at 396. EKG is a sinus rhythm with a left bundle branch block. Ventricular rate 110 bpm on my interpretation. Chest x-ray on my interpretation shows blunting of costophrenic angles and concern for CHF. Patient's rapid Covid is negative. Discussed with Dr. Weber and he recommended a dose of Lasix 40 IV. He can follow-up with them outpatient. Patient was ambulatory in ED and I feel he safe to do so. Impression: 1. CHF exacerbation 2. Generalized weakness Lab Data Labs: Laboratory Results - last 24 hr 09/27/21 09/27/21 09/27/21 09:20 09:20 09:20 WBC 10.4 RBC 3.57 L Hgb 10.3 L Hct 30.5 L MCV 85.4 MCH 28.9 MCHC 33.8 RDW Std Deviation 44.7 H RDW Coeff of [place] 14.6 Plt Count 374 MPV 10.4 Immature Gran % (Auto) 0.500 Neut % (Auto) 71.2 H Lymph % (Auto) 13.5 L [place] % (Auto) 6.3 Eos % (Auto) 7.9 H Baso % (Auto) 0.6 Absolute Neuts (auto) 7.4 Absolute Lymphs (auto) 1.41 Nucleated RBC % 0 Sodium 139 Potassium 3.7 Chloride 106 Carbon Dioxide 25.0 Anion Gap 8 BUN 12 Creatinine 1.01 Estim Creat Clear Calc 73.63 Est GFR (MDRD) Af Amer 93 Est GFR (MDRD) Non-Af 77 BUN/Creatinine Ratio 11.9 Glucose 181 H Calcium 8.4 L Troponin I High Sens 92 H B-Natriuretic Peptide 396.2 H 09/27/21 11:30 WBC RBC Hgb Hct MCV MCH MCHC RDW Std Deviation RDW Coeff of [place] Plt Count MPV Immature Gran % (Auto) Neut % (Auto) Lymph % (Auto) [place] % (Auto) Eos % (Auto) Baso % (Auto) Absolute Neuts (auto) Absolute Lymphs (auto) Nucleated RBC % Sodium Potassium Chloride Carbon Dioxide Anion Gap BUN Creatinine Estim Creat Clear Calc Est GFR (MDRD) Af Amer Est GFR (MDRD) Non-Af BUN/Creatinine Ratio Glucose Calcium Troponin I High Sens 91 H B-Natriuretic Peptide Radiography Diagnostic Testing: Clinical Impression(s) from Imaging Studies Chest X-Ray 09/27/21 09:14 IMPRESSION: Bibasilar patchy infiltrates worse on the left side with blunting of both costophrenic angles. Electronically Signed: Jacques Ng MD at 9:50 EST , Service support , Discharge Plan Triage Chief Complaint: General Illness ED Provider: Mynor Kinsey Dx/Rx/DC Orders Instructions: ED Heart Failure, Congestive (CHF) Prescriptions: No Action glimepiride 2 mg tablet 2 mg PO BID RF: 0 albuterol sulfate [ProAir HFA] 90 mcg/actuation HFA aerosol inhaler 2 puff INHALATION Q4H PRN PRN (Reason: Sob &/Or Wheezing) RF: 0 rosuvastatin 40 MG tablet 40 mg PO DAILY RF: 0 aspirin 81 mg tablet,chewable 81 mg PO DAILY RF: 0 multivitamin Tablet 1 tab PO DAILY RF: 0 clopidogrel 75 mg Tablet 75 mg PO DAILY Qty: 30 RF: 0 carvedilol 3.125 mg tablet 3.125 mg PO BID Qty: 60 RF: 0 potassium chloride 10 mEq tablet extended release 20 meq PO BID Qty: 120 RF: 0 meloxicam 15 mg tablet 15 mg PO DAILY Qty: 10 RF: 0 furosemide [Lasix] 40 mg tablet 40 mg PO BID Qty: 180 RF: 3 Entresto 49-51 mg tablet 1 tab PO BID RF: 0 Primary Care Provider: Juliano Bowles Referrals: Christopher Weber MD [STAFF PHYSICIAN] - As soon as possible Juliano Bowles MD [Primary Care Provider] - Disposition Disposition: Home, Self Care Discharge Date/Time: 09/27/21 13:25
[2021-09-27 09:28] LABS: Absolute Lymphocyte Count 1.41 X10^3/uL (0.83-4.51); Absolute Neutrophil Count 7.4 X10^3/uL (2.0-7.7); Basophil# 0.06 X10^3/uL; Basophil% 0.6 % (0-1); Eosinophil# 0.82 X10^3/uL; Eosinophils% 7.9 % (0-5); Hematocrit 30.5 % (40-54); Hemoglobin 10.3 g/dL (13.0-16.5); Lymphocyte # 1.41 X10^3/ul (0.83-4.51); Lymphocyte % 13.5 % (19-41); Mean Corp Hgb Conc 33.8 g/dL (32-36); Mean Corpuscular Hgb 28.9 pg (27.0-32.0); Mean Corpuscular Volume 85.4 fL (80-94); Mean Platelet Vol. 10.4 fl (6.2-12.0); Monocyte# 0.66 X10^3/uL; Monocyte% 6.3 % (0-10); NRBC Flagged by Analyzer 0 % (0-5); Neutrophil # 7.43 X10^3/uL (2.7-7.7); Neutrophil % 71.2 % (47-70); Platelet Count 374 K/mm3 (150-450); RBC Distribution Width CV 14.6 % (11.6-14.6); RBC Distribution Width SD 44.7 fl (35.1-43.9); Red Blood Count 3.57 M/mm3 (4.6-6.2); White Blood Count 10.4 K/mm3 (4.4-11.0)
[2021-09-27 09:46] LABS: Anion Gap 8 (5-15); BUN 12 mg/dL (7-18); BUN/Creat Ratio 11.9 RATIO (10-20); Calcium,Total 8.4 mg/dL (8.5-10.1); Chloride 106 mmol/L (98-107); Creatinine, Serum 1.01 mg/dL (0.70-1.30); EST Glomerular Filtration Rate 77 mL/min (>60); Est Glom Filt Rate - Afr Amer 93 mL/min (>60); Estimated Creatinine Clearance 73.63 ml/min; Glucose 181 mg/dL (74-106); Potassium 3.7 mmol/L (3.5-5.1); Sodium Level 139 mmol/L (136-145); Troponin-I HS 92 pg/mL (3.0-78.0)
[2021-09-27 09:49] LABS: BNP,B-Type NATRIURETIC PEPTIDE 396.2 pg/mL (0-100)
[2021-09-27 11:58] LABS: Troponin-I HS 91 pg/mL (3.0-78.0)
[2021-09-27] MEDS: Furosemide 40 MG/4 ML Vial IV (12:21)
== END 2021-09-27 13:25 | disposition home or self-care (01) ==
PROVIDERS: Emergency Provider Student in an Organized Health Care Education/Training Program; PCP Family Medicine
DX: I11.0 Hypertensive heart disease with heart failure (principal); I50.23 Acute on chronic systolic (congestive) heart failure; R53.1 Weakness; I25.10 Atherosclerotic heart disease of native coronary artery without angina pectoris; E11.9 Type 2 diabetes mellitus without complications; E78.5 Hyperlipidemia, unspecified; Z79.84 Long term (current) use of oral hypoglycemic drugs; Z79.899 Other long term (current) drug therapy
CPT/HCPCS: 36415; 71045; 80048; 83880; 84484; 85025; 87426; 93005; 96374; 99285; A4216; J1940

== ENCOUNTER → 2021-11-29 | Outpatient (CLI) | payer MEDICARE, OTHER, SELFPAY ==
--- NOTE | 2021-11-29 13:03 | CR.HP_ITS ---
CR - History & Physical - General Arrival date:: 11/29/21 Arrival time:: 12:45 Date of Referral:: 11/15/21 Date of CR Evaluation:: 11/29/21 Referring Physician: Dr. Rob Fernandez @ [facility] Primary Diagnosis: Heart Valve Repalcement - History of Present Cardiac Event Onset Date: Enter Onset Date of cardiac illnesses in Comment field below Heart valve replacement or repair:: Yes - 09/07/2021 Type of Symptoms:: shortness of breath , dyspnea, fatigue, echocardiogram indicated increase in regurgitation of the old valve. Interventions with present event:: scheduled by to have heart valve replaced. - Sleep Disorder Evaluation Hx of Sleep Apnea: No Do you snore loudly (louder than talking or can be heard through closed doors)?: No Do you often feel tired/ fatigued/ sleepy during daytime?: No Has anyone observed you stop breathing during sleep?: No History of Hypertension (for STOP score): Yes STOP Results: Negative - Medications Home Medications: Ambulatory Orders Medication Instructions Recorded rosuvastatin 40 mg PO DAILY 06/19/18 albuterol sulfate 90 mcg/actuation 2 puff INHALATION Q4H PRN PRN g 07/10/19 aerosol inhaler glimepiride 2 mg tablet 2 mg PO BID tab 07/10/19 aspirin 81 mg chewable tablet 81 mg PO DAILY tab 05/19/21 multivitamin 1 tab PO DAILY 05/26/21 carvedilol 3.125 mg PO BID #60 tab 05/28/21 clopidogrel 75 mg PO DAILY #30 tab 05/28/21 potassium chloride 20 meq PO BID #120 tab 05/28/21 meloxicam 15 mg PO DAILY #10 tab 07/11/21 sacubitril 49 mg-valsartan 51 mg 1 tab PO BID 08/17/21 tablet furosemide [Lasix] 20 mg PO BID 11/29/21 metoprolol succinate 25 mg PO DAILY 11/29/21 sacubitril-valsartan [Entresto] 1 tab PO BID 11/29/21 - Allergies Allergies/Adverse Reactions: Allergies codeine Adverse Reaction (Intermediate, Verified 09/27/21 09:09) constipation Advanced Directives - Advanced Directives Power of Rivet Sorter: No Advance Directives Information Provided: Yes Advance Directives on File: No DNR Order?:: No - MOLST See MOLST form: No Past Medical History - Covid-19 Screening Fever: No Unexplained muscle aches: No Current respiratory symptoms: No Upper respiratory infections symptoms: No Gastro-intestinal symptoms: No Gqn-Vbsr-Dxfibr symptoms: No Has tested positive for COVID-19 in last 30 days: No Date of testin11/29/21 - Verified patient has had both SARS COVID-19 vaccines and Moderna Booster Had contact w/person w/symptoms or Covid-19 (+) last 14 days: No Has High Risk Exposures ID'd by Health dept/Inf Control team: No 65 years or older:: Yes Lives in Assisted Living facility:: No Has a chronic lung disease or moderate to severe asthma:: No Has a serious heart condition:: Yes Immunocompromised:: No Severely obese (Body Mass Index of 40 or higher):: No Diabetic:: Yes Has chronic kidney disease undergoing dialysis:: No Has liver disease:: No - Past Medical Illness Medical History: Past Medical History (Last Updated 11/01/21 @ 14:41 by Cherelle Dalton) ASD (atrial septal defect) Q21.1 Atherosclerosis of coronary artery of [place] heart without angina pectoris I2 5.10 Atrial tachycardia I47.1 Postop Carotid artery stenosis I65.29 Moderate (50-69%) stenosis right extracranial internal carotid. Mild (<50%) stenosis left extracranial internal carotid. 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 Trifecta bovine pericardial aortic valve and closure of atrial septal defect 02/02/20 History of aortic valve replacement Onset Date: 09/13/[address] [employer] Trifecta bovine pericardial aortic valve, colosure of atrial septal defect and a septal aneurysm of the interatrial septum 02/10/2012; Redo AVR (#25 [place]), Aortic root enlargement (Simone's procedure) 09/13/21 History of aortic valve replacement Z95.2 History of atrial septal defect repair Onset Date: 02/10/12 Z87.74 History of left heart catheterization Onset Date: 05/27/21 Z98.890 09/24/2019, 05/27/21 History of right heart catheterization Onset Date: 08/09/21 Z98.890 History of tonsillectomy Z90.89 Surgical History: - - Tonsillectomy, urethral dilation secondary to strictures, CABG ?4. - Family History Summary Family History: Family History (Last Reviewed 09/27/21 @ 09:[address] Mynor Kinsey, DO) Father CAD (coronary artery disease) Social History - Smoking History Smoking Status: Never smoker Hx Tobacco Use: No Hx Smoking Exposure: No - Alcohol Use Alcohol Usage: No - Substance Abuse Hx Substance Use: No - Occupation Occupation (List type of work in comments):: Retired - Hobbies, Recreation, Social Activities Hobbies: Sports - Senior softball league, bowling league fall Recreational Activities: I am able to engage in most, but not all activities Social Environment - Status Marital Status: - Current Living Arrangements Living Environment:: Spouse - Children How many children do you have?: 3 Do any of your children live nearby?: Yes - [facility] area - Safety Do you feel safe in your surroundings?: Yes - Assistance Do you need any assistance at home?: none Review of Systems - Review of Systems Hints: Right click = Denies ([place]). Left click = Reports ([place]) Review of Present Symptoms: Reports: Fatigue - when do get tired sit down take a nap, Appetite - Normal, Appetite - Special Diet - low fat, low cholesterol, no added salt, try to eat heart healthy diet, Sleep - Normal. Denies: Shortness of Breath at Rest, Shortness of Breath with Exertion, Angina, Dizziness/Lightheadedness - Pain Is Patient Pain Free?: Yes Risk Factor Assessment - Chief Complaint Chief Complaint: Patient is a 71 yr old male patient presenting to [facility] CR program from the [facility] Main [place]. Patient recently had replacement of aortic valve on 09/07/2021 and had a previous AVR 10 years prior which he then also participated in CR. - Vital Signs Temperature: 98.1 F Respiratory Rate: 16 Pulse Ox: 96 Blood Pressure: 94/70 Nailbeds:: pink in color, - Pulse Pulse Rate: 111 Pulse Rhythm: Regular - Hypertension Blood Pressure Sitting - Left Arm: 94/70 - Blood Cholesterol/Lipids Total Cholesterol (mg/dL) Goal = less than 200 mg/dL: 0 - no labs provided from the [facility] - Diabetes Diabetic History: Type II, Medication Dependent - Obesity Height: 6 ft Weight:: 267 lb Weight in Pounds: 267.0 lbs Weight Source: Standing Scale Body Mass Index (BMI): 36.2 Nutritional Referral for Obesity: No - patient declined - Physical Inactivity Physical Inactivity: Reg Exercise 30 min/day, Physically demanding job - Risk Stratification Risk Guidelines: Lowest Risk: Risk Factor for Smoking, Risk Factor for Dyslipidemia, Risk Factor for Hypertension, Risk Factor for Depression, Moderate Risk: Risk Factor for Diabetes - Glucose 168, HbA1c unavailable, Risk Factor for Sedentary Lifestyle, Highest Risk: Risk Factor for Obesity - 36.32 BMI - Family History Family History: Family History (Last Reviewed 09/27/21 @ 09:[address] Mynor Kinsey, DO) Father CAD (coronary artery disease) Motivation - Motivation to Participate On a scale of 1 to 10, how prepared are you to commit to attending program?: 10 What do you see as barriers to successfully being able to complete the program?: none What do you see as the benefits of succesfully completing the program? In other words, what do you hope to get out of participating in the program?: healthier, normal strength, energy and stamina Are there issues you are dealing with that will interfere with completing the program?: none Do you have a spouse or signficant other, family or friends who will help support you to complete the program?: Yes
[2021-11-29 13:39] VITALS: BP 94/70; PULSE 111; RESP 16; TEMP 36.7; O2SAT 96; BMI 36.2
--- NOTE | 2021-11-29 14:18 | CR.ITP_ITS ---
Diagnosis - General Information Admitting Diagnosis: S/P AVR 09/07/2021 Personal Learning Style:: Audio/Visual, Written Barriers to Learning: Hearing Impairment, Vision Impairment Stage of change r/t lifestyle modifications:: Action Gave educational material for:: Treating Heart Disease, Emotions & Heart Disease, Stress Management & Relaxation, Sleep Disorders & Heart Disease, How The Heart Works, What it means to have Heart Disease, How Coronary Artery Disease is Diagnosed, Heart Procedures, What Heart Medications Do, Risk Factors & Modifications, Living an Active Life, Nutrition - Education/Goals Individual Counseling: Initial Assessment: Abnormal Cholesterol Levels, High Blood Pressure, Overweight/Obesity, Diabetes, Metabolic Syndrome (as evidenced by 3 of 5 A-E below) Cardiac Rehabilitation Goals: 1. Maintain the individual as the primary focus of care. 2. To improve the patient's quality of life. 3. Identification of cardiac risk factors and provide cardiac risk factor management. 4. Enhance the psychosocial status of the patient. 5. Reconditioning enough to allow the patient to resume customary activities. 6. Control symptoms of cardiac disease Personal Goals: Initial Assessment: Improve energy level, Participate in home exercise program, Get back to work, or to resume activities faster, Improve musc le strength and endurance, Control risk factors (learn risk factor modification) Scale for measuring improvement of personal goals: Enter appropriate number in Comments. 2 = Unchanged. 3 = Slightly Better. 4 = Moderate Improvement. 5 = Met my Goal - Diagnosis & Disease Process Outcomes/Goals: Pt IDs own risk factors & lifestyle modifications by Session 10, Verbalizes symptoms of angina & response by session 3., Pt independently manages Plan/Interventions: Assist Pt to ID & engage in lifestyle modification to reduce CVD risk, Instruct on individual risk factors, Review symptoms of angina & emergency actions, Review secondary diagnosis & identify educational needs. - Safety Referral to Physical Therapy: No Referral to [facility] Case Management: No Fall Risk Assessed:: Yes Assistive Devices:: None Exercise - Initial Assessment - Visit Date of Eval: 11/29/21 Session #:: 0 - Pre-cardiac Rehab Eval starting 12/01/2021 Mets: Pre-: >5 METS for 30 minutes by discharge - Physician Prescribed Exercise Modalities: Treadmill, NuStep, SciFit, Lateral Horologist Frequency: 3x/week for 12 weeks [36 sessions] Intensity: 60-80% of age predicted maximum heart rate reserve Current METSs:: 2.0 Target Heart Rate:: 96-125 Resting Blood Pressure: 94/70 EKG Type: Sinus tachycardia w/LBBB - Outcomes & Goals Goals:: Verbalizes understanding of THR, RPE & goal METS by session 6, Documents in home exercise log/reports 30 min aerobic 5 day/wk by DC, Demonstrates accurate pulse taking by DC - Intervention & Plan Exercise Program Goals: Instruct on personal THR & RPE, Instruct on MET level & personal MET goal, Show patient to take own pulse /validate performance until accurate, Instruct on home exercise - Physical Activity Home Exercise Physical Activity - Home Exercise: Safe Exercise, Warm-up, Self-monitoring, Cool-Down, Home Exercise > 30 min Daily, Sitting Time <3 hours/daily - Outcomes & Goals Outcomes/Goals: Demonstrates correct Warm-up/exercise Cool-Down (S3) if = 2.5 METs, Verbalizes symptoms of exercise intolerance by Session 3 (S3), Demonstrate safe equipment use (S3) & follows exercise prescrition (6) - Intervention & Plan Plan/Intervention: Instruct warm-up & cool-down if exercising at > 2 METs, Instruct on symptoms of exercise intolerance & actions to take, Instruct & monitor on saf, Assess intial functional capacity & safety risk Nutrition - Initial Assessment - Program Goals Nutrition Program Goals: LDL <100 optimal. 100 - 129 Near optimal. 130 - 159 Borderline High. 160 - 189 High. Total Cholesterol <200 desirable. 200 - 239 Borderline High. >/= 240 High. HDL < 40 Low >/=60 High. Triglycerides <150 desirable. <199 optimal. VlDL 5 - 40. HgbA1C <7%. BMI <25 Patient has diagnosis of Hyperlipidemia (ICD E78)?: Yes - Visit Date of Assessment:: 11/29/21 Session #:: 0 - Pre-cardiac rehab eval starting 12/01/21 - Cholesterol/Lipids Determine presence & major risk factors that modify LDL goal: Hypertension or hypertensive medication, Family history of premature CHD in Male < 55 years: female <65 yearsFa, Age men > 45 years; women >/= 55 years Outcomes/Goals: Pt IDs own risk factors & lifestyle modifications by Session 10, Verbalizes symptoms of angina & response by session 3., Pt independently manages Intervention/Plan: Instruct on personal lipid levels & lipid goals/NCEP guidelines, Instruct on cholesterol Referral to dietitian:: No - Patient declined participation - Diabetes (Other Core Measures) Diabetes Type: Diagnosis Type II ICD-10 E11 Insulin dependent injection/pump?: No Non-Insulin Dependent?: Yes Do you monitor your blood sugar at home?: Yes Referral to Diabetic Clinic:: No Outcomes/Goals:: Able to state symptoms of, Able to state, Able to state Intervention/Plan:: Instruct on, Instruct on - Weight Mgt (Other Care) Not Applicable: No Height: 6 ft Weight:: 267 lb BMI: 36.2 Diagnosis Overweight/Obesity BMI> 30% ICD-10 E66: Yes Diagnosis High BMI/Morbid Obesity BMI> 35% ICD-10 Z68: Yes Outcomes/Goals: Pt sets, maintains & shows weight loss goal & trend during rehab Intervention/Plan: Instruct on ideal BMI & set weight loss goal w/patient, Assist pt to ID & incorporate diet changes for weight loss by S9, Refer to Structured Weight Loss program as appropriate, Encourage goal of using 250- 300dcal per session for weight loss - Healthy Eating Habits Will attend diet classes:: Yes Outcomes/Goals:: Consume diet rich in vegs,fruits,whole grain/high fiber,fish,lean meat, Limit sat/trans fats,cholesterol & added salts & sugars Intervention/Plan:: Assess current eating habits - Education Gave educational materials for:: Signs & symptoms of hypoglycemia, Signs & symptoms of hyperglycemia, Relate diabetes to coronary artery disease, Healthy eating Nutrition - 30-Day Assessment Nutrition - 60-Day Assessment Nutrition - 90-Day Assessment Nutrition - Final Assessment Medical - Initial Assessment - Visit Date of Eval: 11/29/21 Session #:: 0 - Pre-cardiac rehab eval starting 12/01/2021 - Medication Compliance Preventative Medication(s):: Aspirin, TERI inhibitor, Clopidogrel/P2Y12 inhibit, Statin/lipid, Eliquis H/O mental health issues: depression, anxiety, or addiction?: No Doesn?t believe in the benefits of treatment?: No Believes medications are unnecessary or harmful?: No Has a concern about medication side effects?: No Expresses concern over the cost of medications?: No Outcomes/Goals: Verbalizes medications,desired effect & common side effects @ DC, Pt self-reports following medication regimen, Keeps card in wallet w/medications listed by DC Interventions/plans: Instruct on medication effects & side effects, Review medication list w/patient every two weeks, Instruct importance of taking meds as ordered & assist problem solving - Tobacco Use Tobacco Use: Non-smoker - Hypertension Resting Blood Pressure:: 97/40 [employer] Hypertension Guidelines: [employer] Hypertension Guidelines. Normal BP Less than 120/80. Elevated BP 120/80. Hypertension Stage 1: BP 130-139/80-89. Hypertesnion Stage 2: BP 140 or higher/90 or higher. Hypertension Crisis: BP higher than 180/120 Outcomes/Goals: Able to verbalize/achieve optimal blood pressure <130/80, Incorporates diet changes & exercise for blood pressure control by DC Interventions/plan: Instruct on optimal blood pressure, hypertension & medications, Instruct on effects of sodium, alcohol, stress, exercise &hypertension - Tobacco Cessation Referral Smoking Cessation Referral:: No Individual Education/Counseling:: No Education Schedule Given:: Yes Medical- 30-Day Assessment Medical- 60-Day Assessment Medical- 90-Day Assessment Medical - Final Assessment Psychosocial - Initial Assess - VIsit Date of Eval: 11/29/21 Session #:: 0 - Pre-cardiac rehab eval, starting CR Not Applicable: No History of previous Mental disease:: No - Psychosocial Test Tool Used:: Stukent QOL Cardiac, PHQ-9 Questionnaire phq-9 Severity: Severity. 1-4 Minimal Depression. 5-9 Mild Depression. 10-14 Moderate Depression. 15-19 Moderately Sever Depression. 20-27 Severe Depression. Rule: - Referral to Behavioral Health PS - Interventions: No Referral to Behavioral Health if PHQ-9 score >9:, No Referral to [facility], No Referral to Physician if PHQ-9 if score is 5-9: - Outcomes/Goals: See list Psychosocial Outcomes/Goals:: ID's personal stressors & 2 strategies to manage stress by discharge - Intervention/Plan: See List Interventions/Plan:: Assess stressors,coping strategies & signs of derpression on admission, Instruct/assist pt to develop coping & personal stress Mgt strategies, Instruct patient to recognize signs & symptoms of depression, Instruct patient to recog Psychosocial - 30-Day Assess Psychosocial - 60-Day Assess Psychosocial - 90-Day Assess Psychosocial - Final Assessmen Patient Health Questionnaire Initial Assessment 1. Little interest or pleasure in doing things: Not at all 2. Feeling down, depressed, or hopeless: Not at all 3. Trouble falling or staying asleep, or sleeping too much: Not at all 4. Feeling tired or having little energy: Not at all 5. Poor appetite or overeating: Not at all 6. Feeling bad about yourself -- or that you are a failure or have let yourself or your family down: Not at all 7. Trouble concentrating on things, such as reading the newspaper or watching television: Not at all 8. Moving or speaking so slowly that other people could have noticed. Or the opposite - being so fidgety or restless that you have been moving around a lot more than usual: Not at all 9. Thoughts that you would be better off , or of hurting yourself in some way: Not at all How difficult have these problems made it for you to do your work, take care of things at home, or get along with other people?: Not difficult at all Total Score: 0 LILA-Q SV Test - Statements CAD is a disease of the arteries in the heart: False Examples of risk factors for heart disease: True Angina is chest pain or discomfort: I Don't Know The benefits of resistance training include: True Eating more meat and dairy products: False Anti-platelet medications such as aspirin are important: True The only effective way to manage stress: False An exercise warm-up slowly increases heart rate: I Don't Know Prepared, processed foods usually have high sodium: True Depression is common after a heart attack: True The statin medications lower cholesterol: True To control blood pressure, lower the amount of sodium: True If someone gets chest discomfort during walking: False Transfats are partially hydrogenated vegetable oils: False Sleep apnea that is not treated increases the risk: False To control cholesterol, one should become a vegetarian: False Someone knows if he/she is exercising at the right level: True Diabetes cannot be prevented with exercise & health eating: False Stress is a large risk for heart attack: True A diet that can help lower blood pressure is rich in: True - Total Score Total Correct Responses: 17 Self-Efficacy Initial Assessment We would like to know how confident you are in doing certain activities. Please select your confidence level for:: Select your confidence level for the following using the scale 1-10 where 1 is not at all confident and 10 is totally confident. Your score is the average of all 6 responses. Fatigue: How confident are you that you can keep the fatigue caused by your dis ease from interfering with the things you want to do? Select Number: 9 Physical Discomfort or Pain: How confident are you that you can keep the physic al discomfort or pain of your disease from interfering with the things you want to do? Select Number: 9 Emotional Distress: How confident are you that you can keep the emotional distress caused by your disease from interfering with the things you want to do? Select Number: 9 Other Symptoms or Health Problems: How confident are you that you can keep other symptoms or health problems from interfering with the things you want to do? Select Number: 9 Different Tasks and Activities: How confident are you that you can do the different tasks and activities needed to manage your health condition so as to reduce your need to see a doctor? Select Number: 9 Medication: How confident are you that you can do things other than just taking medication to reduce how much your illness affects your everyday life? Select Number: 9 Total Score:: 9 Nutrition Survey - Nutrition Survey Initial Have you lost >10 lbs over the past 2 months without trying?: Yes Are you following a special diet at home for diabetes, low fat, or low salt?: Yes Are you interested in meeting with a dietitian for help understanding your diet?: No Do you eat less than 3 meals a day?: Yes Do you eat fatty meats (arshad, sausage, ribs, etc), fried foods, desserts, large amounts of salad dressings, margarine, butter, or cheese most days?: No Do you have food allergies? [Enter types in comment field]: No Do you eat in restaurants more than 3 times a week?: No Do you season food with salt, seasoning salt, or garlic salt?: No Do you used canned, boxed, frozen meals, or soups, seasoning packets?: No Total Score:: 3
[2021-11-29 14:35] VITALS: BP 94/70; BP 97/40; BMI 36.2
== END | disposition home or self-care (01) ==
LOC: CR 12:52
PROVIDERS: PCP Family Medicine
DX: Z98.890 Other specified postprocedural states (principal); I65.23 Occlusion and stenosis of bilateral carotid arteries; Z95.2 Presence of prosthetic heart valve

== ENCOUNTER 2021-12-17 13:00 | Outpatient (RCR) | payer MEDICARE, OTHER, SELFPAY ==
[2021-11-29 14:35] VITALS: BMI 36.2
== END 2021-12-20 23:59 ==
LOC: CR 13:00
PROVIDERS: PCP Family Medicine
DX: Z98.890 Other specified postprocedural states (principal); I65.23 Occlusion and stenosis of bilateral carotid arteries
CPT/HCPCS: 93798

== ENCOUNTER 2021-12-31 13:00 | Outpatient (RCR) | payer MEDICARE, OTHER, SELFPAY ==
[2021-11-29 14:35] VITALS: BMI 36.2
--- NOTE | 2021-12-27 09:38 | PCM.CR.ITP ---
Diagnosis Exercise - 30-day Assessment - Visit Date of Eval: 12/27/21 Session #:: 9 - Physician Prescribed Exercise Modalities: Treadmill, NuStep Frequency: 3x/week for 12 weeks [36 sessions] Intensity: 60-80% of age predicted maximum heart rate reserve Current METSs:: 3.0 unchanged Target Heart Rate:: 96-125 Current RPE:: 12-13 Maximum Excercise HR:: 114 Resting Blood Pressure: 118/68 EKG Type: NSR to ST?LBBB with rare PACs isolated ventricular couplet. - Outcomes & Goals Goals:: Verbalizes understanding of THR, RPE & goal METS by session 6, Documents in home exercise log/reports 30 min aerobic 5 day/wk by DC, Demonstrates accurate pulse taking by DC - Intervention & Plan Exercise Program Goals: Instruct on personal THR & RPE, Instruct on MET level & personal MET goal, Show patient to take own pulse /validate performance until accurate, Instruct on home exercise - 30-day Reassessments 30 day Reassessments:: Progressing - Physical Activity Home Exercise Physical Activity - Home Exercise: Safe Exercise, Warm-up, Self-monitoring, Cool-Down, Home Exercise > 30 min Daily, Sitting Time <3 hours/daily - Outcomes & Goals Outcomes/Goals: Demonstrates correct Warm-up/exercise Cool-Down (S3) if = 2.5 METs, Verbalizes symptoms of exercise intolerance by Session 3 (S3), Demonstrate safe equipment use (S3) & follows exercise prescrition (6) - Intervention & Plan Plan/Intervention: Instruct warm-up & cool-down if exercising at > 2 METs, Instruct on symptoms of exercise intolerance & actions to take, Instruct & monitor on saf, Assess intial functional capacity & safety risk - 30-day Reassessments 30 day Reassessments:: Progressing Nutrition - Initial Assessment Nutrition - 30-Day Assessment - Program Goals Nutrition Program Goals: LDL <100 optimal. 100 - 129 Near optimal. 130 - 159 Borderline High. 160 - 189 High. Total Cholesterol <200 desirable. 200 - 239 Borderline High. >/= 240 High. HDL < 40 Low >/=60 High. Triglycerides <150 desirable. <199 optimal. VlDL 5 - 40. HgbA1C <7%. BMI <25 Patient has diagnosis of Hyperlipidemia (ICD E78)?: Yes - Visit Date of Assessment:: 12/27/21 Session #:: 9 - Cholesterol/Lipids Determine presence & major risk factors that modify LDL goal: Hypertension or hypertensive medication, Low HDL cholesterol <40 mg/dL*, Family history of premature CHD in Male < 55 years: female <65 yearsFa, Age men > 45 years; women >/= 55 years Outcomes/Goals: Pt IDs own risk factors & lifestyle modifications by Session 10, Verbalizes symptoms of angina & response by session 3., Pt independently manages Intervention/Plan: Instruct on personal lipid levels & lipid goals/NCEP guidelines, Instruct on cholesterol 30-day Reassessments:: Progressing - Diabetes (Other Core Measures) Diabetes Type: Not Applicable - Weight Mgt (Other Care) Height: 6 ft Weight:: 271 lb BMI: 36.7 Diagnosis Overweight/Obesity BMI> 30% ICD-10 E66: Yes Diagnosis High BMI/Morbid Obesity BMI> 35% ICD-10 Z68: Yes Outcomes/Goals: Pt sets, maintains & shows weight loss goal & trend during rehab Intervention/Plan: Instruct on ideal BMI & set weight loss goal w/patient, Assist pt to ID & incorporate diet changes for weight loss by S9, Encourage goal of using 250-300dcal per session for weight loss 30 day Reassessments:: Progressing - Healthy Eating Habits Will attend diet classes:: Yes Outcomes/Goals:: Consume diet rich in vegs,fruits,whole grain/high fiber,fish,lean meat, Limit sat/trans fats,cholesterol & added salts & sugars Intervention/Plan:: Assess current eating habits 30-day Reassessments:: Progressing - Education Gave educational materials for:: Healthy eating Nutrition - 60-Day Assessment Nutrition - 90-Day Assessment Nutrition - Final Assessment Medical - Initial Assessment Medical- 30-Day Assessment - Visit Date of Eval: 12/27/21 Session #:: 9 - Medication Compliance Preventative Medication(s):: Aspirin, Clopidogrel/P2Y12 inhibit, Statin/lipid, Beta sandy H/O mental health issues: depression, anxiety, or addiction?: No Doesn?t believe in the benefits of treatment?: No Believes medications are unnecessary or harmful?: No Has a concern about medication side effects?: No Expresses concern over the cost of medications?: No Outcomes/Goals: Verbalizes medications,desired effect & common side effects @ DC, Pt self-reports following medication regimen, Keeps card in wallet w/medications listed by DC Interventions/plans: Instruct on medication effects & side effects, Review medication list w/patient every two weeks, Instruct importance of taking meds as ordered & assist problem solving 30-day Reassessments:: Progressing - Tobacco Use Tobacco Use: Non-smoker - Hypertension Hypertension Diagnosis:: Hypertension ICD-10 I10 Resting Blood Pressure:: 118/68 [employer] Hypertension Guidelines: [employer] Hypertension Guidelines. Normal BP Less than 120/80. Elevated BP 120/80. Hypertension Stage 1: BP 130-139/80-89. Hypertesnion Stage 2: BP 140 or higher/90 or higher. Hypertension Crisis: BP higher than 180/120 Peak Exercise Blood Pressure:: 120/80 Outcomes/Goals: Able to verbalize/achieve optimal blood pressure <130/80, Incorporates diet changes & exercise for blood pressure control by DC Interventions/plan: Instruct on optimal blood pressure, hypertension & medications, Instruct on effects of sodium, alcohol, stress, exercise &hypertension 30 day Reassessments:: Progressing - Tobacco Cessation Referral Smoking Cessation Referral:: No Individual Education/Counseling:: No Education Schedule Given:: Yes Medical- 60-Day Assessment Medical- 90-Day Assessment Medical - Final Assessment Psychosocial - Initial Assess Psychosocial - 30-Day Assess - VIsit Date of Eval: 12/27/21 Session #:: 9 Not Applicable: Yes History of previous Mental disease:: No - Psychosocial Test Tool Used:: PHQ-9 Questionnaire phq-9 Severity: Severity. 1-4 Minimal Depression. 5-9 Mild Depression. 10-14 Moderate Depression. 15-19 Moderately Sever Depression. 20-27 Severe Depression. Rule: - Referral to Behavioral Health PS - Interventions: Yes Attend Stress Management Classes, No Referral to Behavioral Health if PHQ-9 score >9:, No Referral to [facility], No Referral to Physician if PHQ-9 if score is 5-9: - Outcomes/Goals: See list Psychosocial Outcomes/Goals:: ID's personal stressors & 2 strategies to manage stress by discharge - Intervention/Plan: See List Interventions/Plan:: Assess stressors,coping strategies & signs of derpression on admission, Instruct/assist pt to develop coping & personal stress Mgt strategies, Instruct patient to recognize signs & symptoms of depression, Instruct patient to recog - 30-day Reassessments: 30 day Reassessments:: Progressing Psychosocial - 60-Day Assess Psychosocial - 90-Day Assess Psychosocial - Final Assessmen Patient Health Questionnaire 30-Day Re-eval Assessment 1. Little interest or pleasure in doing things: Not at all 2. Feeling down, depressed, or hopeless: Not at all 3. Trouble falling or staying asleep, or sleeping too much: Not at all 4. Feeling tired or having little energy: Not at all 5. Poor appetite or overeating: Not at all 6. Feeling bad about yourself -- or that you are a failure or have let yourself or your family down: Not at all 7. Trouble concentrating on things, such as reading the newspaper or watching television: Not at all 8. Moving or speaking so slowly that other people could have noticed. Or the opposite - being so fidgety or restless that you have been moving around a lot more than usual: Not at all 9. Thoughts that you would be better off , or of hurting yourself in some way: Not at all How difficult have these problems made it for you to do your work, take care of things at home, or get along with other people?: Not difficult at all Total Score: 0 Self-Efficacy Nutrition Survey
[2021-12-27 10:00] VITALS: BP 118/68; BP 120/80; BMI 36.7
== END 2022-01-20 23:59 ==
LOC: CR 13:00
PROVIDERS: PCP Family Medicine
DX: Z98.890 Other specified postprocedural states (principal); I65.23 Occlusion and stenosis of bilateral carotid arteries
CPT/HCPCS: 93798

== ENCOUNTER 2022-01-02 22:53 | Emergency (ER) | payer MEDICARE, OTHER, SELFPAY ==
[2021-12-27 10:00] VITALS: BMI 36.7
[2022-01-02 22:53] VITALS: BP 137/88; PULSE 84; RESP 16; TEMP 36.6; O2SAT 97; BMI 35.9
--- NOTE | 2022-01-02 23:19 | CT_ITS ---
STUDY: CT ABDOMEN AND PELVIS WITH CONTRAST REASON FOR EXAM: Male, 71 years old. abd pain RADIATION DOSAGE (If Supplied By Facility): CTDIvol = ( 22.07 ) mGy, DLP = ( 1375.20 ) mGycm TECHNIQUE: Transaxial images were obtained from the dome of the diaphragm to the symphysis pubis without oral contrast. IV 100mL Isovue-300 was administered. Sagittal and coronal images were reconstructed. Individualized dose optimization techniques were used for this CT. COMPARISON: None. FINDINGS: There is small left pleural effusion. The visualized portions of the heart are within normal limits. Normal liver. There are multiple gallstones. Normal spleen. Normal pancreas. Normal bilateral adrenal glands. Normal right kidney. Normal left kidney. Normal visualized stomach. Normal small intestine. Normal colon. The appendix is visualized and appears normal. Normal abdominal aorta. Normal inferior vena cava. Normal retroperitoneum. Normal urinary bladder. Normal abdominal wall. Normal osseous structures. CT/Abdomen/Pelvis W IV Cont ONLY IMPRESSION: Small left pleural effusion. Cholelithiasis. Electronically Signed: Candice Mansfield MD at 0:40 EDT ,
--- NOTE | 2022-01-02 23:23 | EDS_ITS ---
HPI History of Present Illness Chief Complaint: Abd Pain Narrative Narrative: Patient is a 71-year-old male with complex past medical history. He states that he was getting ready for bed this evening around 930 or 10 PM when he developed some sharp lower mid abdominal pain just below the bellybutton. He states that the pain is been constant for the last few hours but does seem to be gradually decreasing. He states he had a bowel movement after the pain began and there was no resolution of symptoms. He denies any radiation of the pain and he denies any trauma prior to beginning. He denies any fevers or chills dysuria or hematuria. Patient denies any known sick contacts. He states that because of his complex medical issues he was concerned this could be something more severe and therefore comes in for evaluation [facility] Medical History ASD (atrial septal defect) Atherosclerosis of coronary artery of [place] heart without angina pectoris Atrial tachycardia Carotid artery stenosis Chronic systolic (congestive) heart failure Diabetes mellitus, type II Essential hypertension HFrEF (heart failure with reduced ejection fraction) History of non-ST elevation myocardial infarction (NSTEMI) (05/27/21) HLD (hyperlipidemia) Ischemic cardiomyopathy Left bundle branch block (LBBB) Morbid obesity Near syncope Non-smoker Nonrheumatic aortic (valve) stenosis 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 Syncope Home Medications rosuvastatin 40 mg PO DAILY 06/19/18 [History Last Taken 05/26/21] glimepiride 2 mg tablet 2 mg PO BID tab 07/10/19 [History Last Taken 05/26/21] aspirin 81 mg chewable tablet 81 mg PO DAILY tab 05/19/21 [History Last Taken 05/26/21] multivitamin 1 tab PO DAILY 05/26/21 [History Last Taken 05/26/21] carvedilol 3.125 mg PO BID #60 tab 05/28/21 [Rx Last Taken Unknown] clopidogrel 75 mg PO DAILY #30 tab 05/28/21 [Rx Last Taken Unknown] sacubitril 49 mg-valsartan 51 mg tablet 1 tab PO BID 08/17/21 [History Last Taken Unknown] furosemide [Lasix] 20 mg PO BID 11/29/21 [History Last Taken Unknown] metoprolol succinate 25 mg PO DAILY 11/29/21 [History Last Taken Unknown] potassium chloride 10 meq PO BID 01/02/22 [History Last Taken Unknown] cephalexin 500 mg PO TID 7 Days #21 cap 01/03/22 [Rx Last Taken Unknown] phenazopyridine [Pyridium] 200 mg PO TID 2 Days #6 tab 01/03/22 [Rx Last Taken Unknown] Allergy/AdvReac Type Severity Reaction Status Date / Time codeine AdvReac Intermediate constipatio Verified 01/02/22 22:55 n Family History Father CAD (coronary artery disease) Surgical History H/O coronary artery bypass surgery (02/10/12) History of aortic valve replacement (09/13/21) History of aortic valve replacement History of atrial septal defect repair (02/10/12) History of left heart catheterization (05/27/21) History of right heart catheterization (08/09/21) History of tonsillectomy Social History Smoking Status: Never smoker alcohol intake: never substance use type: does not use caffeine: Yes ROS ROS ED Constitutional Constitutional ED: Denies chills or fever(s) ENT ENT ED: Denies sore throat Cardiovascular Cardiovascular: Denies chest pain Respiratory/Chest Respiratory/Chest: Denies cough or dyspnea Gastrointestinal Gastrointestinal: Reports abdominal pain; Denies constipation, diarrhea, nausea or vomiting Genitourinary Genitourinary ED: Denies dysuria or hematuria Musculoskeletal Musculoskeletal: Denies back pain or myalgias Integumentary Denies rash Neurologic Neurologic: Denies headache(s) Hematologic/Lymphatic Hematologic/Lymphatic: Reports easy bleeding and easy bruising EXAM Physical Exam Const Vital Signs: 01/02/22 22:53 01/03/22 01:06 Temperature 97.8 F Temperature Source Temporal Pulse Rate 84 107 H Respiratory Rate 16 18 Blood Pressure 137/88 H 98/71 Blood Pressure Mean 104 Pulse Ox 97 95 Oxygen Delivery Method Room Air Positive well nourished, well developed and obese General Appearance ED: well developed Nutritional Appearance: obese HEENT Reports moist mucous membranes Eyes PERRL and EOMs intact bilaterally Neck supple Resp normal respiratory effort and clear to auscultation bilaterally Cardio regular rate and regular rhythm GI non-distended and no masses GI Narrative: Abdomen is obese soft and nondistended with hypoactive bowel sounds. There is pain with palpation in the midline lower abdomen just below t he umbilicus. However there is no rigidity or guarding. No obvious hernia palpated. No fluid wave or pulsatile mass. Palpation: soft Back/Spine no CVA tenderness Extremity Extremity Narrative: Patient has chronic +1 pitting edema to the bilateral lower extremities that is equal and symmetric with negative Homans' sign bilaterally Neuro oriented x3 and CN's II-XII intact bilaterally Sensorium / Orientation: alert Motor Exam: strength 5/5 throughout Psych mental status grossly normal Skin no rashes or lesions noted Skin Narrative: No overlying soft tissue skin changes to suggest trauma or infection MDM MDM MDM Narrative Medical decision making narrative: Patient presented to the ER in no acute distress and was afebrile. He had abdominal pain for the past few hours which was slowly resolving on its own. The pain was in the midline below the umbilicus palpated or overlying soft tissue changes to suggest infection. He had faint pain towards the right lower quadrant and based on its sudden onset I did recommend obtaining basic blood work and a CT scan to rule out underlying intestinal pathology. The labs revealed no clinically significant findings but did show white blood cells and bacteria in the urine without contamination. The CT scan also revealed no signs of obstruction or acute intestinal infection. Therefore at this time I feel the patient had a bladder spasm based on where the pain was reported and the fact his urine does show changes consistent with infection. But as he does not have signs of urosepsis or acute kidney injury he does not need to be kept in the hospital. Patient also has had spontaneous resolution of his pain while in the ER without given any type of pain medication. Therefore as on reevaluation his abdomen remains soft and nonsurgical and his work-up just shows UTI without systemic findings he is safe for discharge Lab Data Attestation: I reviewed the patient's lab results. Labs: Laboratory Results - last 24 hr 01/02/22 01/02/22 01/02/22 23:10 23:10 23:20 WBC 6.9 RBC 5.37 Hgb 13.4 Hct 42.3 MCV 78.8 L MCH 25.0 L MCHC 31.7 L RDW Std Deviation 44.0 H RDW Coeff of [place] 15.6 H Plt Count 202 MPV 11.1 Immature Gran % (Auto) 0.600 Neut % (Auto) 60.6 Lymph % (Auto) 25.7 Elliott % (Auto) 8.1 Eos % (Auto) 4.3 Baso % (Auto) 0.7 Absolute Neuts (auto) 4.2 Absolute Lymphs (auto) 1.78 Nucleated RBC % 0 Sodium 139 Potassium 3.8 Chloride 107 Carbon Dioxide 27.0 Anion Gap 5 BUN 17 Creatinine 1.05 Estim Creat Clear Calc 69.80 Est GFR (MDRD) Af Amer 89 Est GFR (MDRD) Non-Af 74 BUN/Creatinine Ratio 16.2 Glucose 147 H Calcium 9.5 Total Bilirubin 0.50 Direct Bilirubin 0.13 AST 20 ALT 34 Alkaline Phosphatase 75 Total Protein 7.5 Albumin 3.8 Globulin 3.7 Lipase 186 Urine Color Yellow Urine Clarity Clear Urine pH 6.0 Ur Specific [place] 1.015 Urine Protein Negative Urine Glucose (UA) Normal Urine Ketones Negative Urine Occult Blood Negative Urine Nitrite Negative Urine Bilirubin Negative Urine Urobilinogen Normal Ur Leukocyte Esterase 500 H Urine RBC 0 SEEN Urine WBC 25-50 SEEN Ur Squamous Epith Cells 0-5 SEEN Urine Bacteria 1+ Urine Mucus 0 SEEN Radiography Diagnostic Testing: Clinical Impression(s) from Imaging Studies Abdomen/Pelvis CT 01/02/22 23:19 IMPRESSION: Small left pleural effusion. Cholelithiasis. Electronically Signed: Candice Mansfield MD at 0:40 EDT Reading Location ID and State: [facility] / [place] Tel , Service support , Discharge Plan Triage Chief Complaint: Abd Pain ED Provider: Luis Alfredo Llanes Dx/Rx/DC Orders Clinical Impression: Urinary tract infection Instructions: Urinary Tract Infections in Men Prescriptions: New cephalexin 500 mg capsule 500 mg PO TID 7 Days Qty: 21 RF: 0 phenazopyridine [Pyridium] 200 mg tablet 200 mg PO TID 2 Days Qty: 6 RF: 0 No Action glimepiride 2 mg tablet 2 mg PO BID RF: 0 rosuvastatin 40 MG tablet 40 mg PO DAILY RF: 0 aspirin 81 mg tablet,chewable 81 mg PO DAILY RF: 0 multivitamin Tablet 1 tab PO DAILY RF: 0 clopidogrel 75 mg Tablet 75 mg PO DAILY Qty: 30 RF: 0 carvedilol 3.125 mg tablet 3.125 mg PO BID Qty: 60 RF: 0 metoprolol succinate 25 mg Tablet Extended Release 24 Hr 25 mg PO DAILY RF: 0 furosemide [Lasix] 40 mg tablet 20 mg PO BID RF: 0 potassium chloride 10 mEq tablet extended release 10 meq PO BID RF: 0 Entresto 49-51 mg tablet 1 tab PO BID RF: 0 Primary Care Provider: Juliano Bowles Referrals: Juliano Bowles MD [Primary Care Provider] - Activity Restrictions/Additional Instructions: Please take your medication as directed and return to the ER should you have any further concerns Disposition Disposition: Home, Self Care Discharge Date/Time: 01/03/22 01:08
[2022-01-02 23:28] LABS: Mucous, Urine 0 SEEN /hpf (<or=2+); Red Blood Cells-Urine 0 SEEN /hpf (0-5)
[2022-01-02 23:33] LABS: Absolute Lymphocyte Count 1.78 X10^3/uL (0.83-4.51); Absolute Neutrophil Count 4.2 X10^3/uL (2.0-7.7); Basophil# 0.05 X10^3/uL; Basophil% 0.7 % (0-1); Eosinophils% 4.3 % (0-5); Hematocrit 42.3 % (40-54); Hemoglobin 13.4 g/dL (13.0-16.5); Lymphocyte # 1.78 X10^3/ul (0.83-4.51); Lymphocyte % 25.7 % (19-41); Mean Corp Hgb Conc 31.7 g/dL (32-36); Mean Corpuscular Volume 78.8 fL (80-94); Mean Platelet Vol. 11.1 fl (6.2-12.0); Monocyte# 0.56 X10^3/uL; Monocyte% 8.1 % (0-10); NRBC Flagged by Analyzer 0 % (0-5); Neutrophil % 60.6 % (47-70); Platelet Count 202 K/mm3 (150-450); RBC Distribution Width CV 15.6 % (11.6-14.6); Red Blood Count 5.37 M/mm3 (4.6-6.2); White Blood Count 6.9 K/mm3 (4.4-11.0)
[2022-01-02 23:37] LABS: Color, Urine Yellow (Yellow); Glucose, Dipstick Normal (Normal); Ketone-Dipstick Negative (Negative); Leukocyte Esterase-Dipstick 500 /ul (Negative); Nitrite-Dipstick Negative (Negative); Occult Blood-Urine Negative /ul (Negative); Protein-Dipstick Negative (Negative); Specific Gravity, Urine 1.015 (1.002-1.030); Urine Bilirubin Dipstick Negative (Negative); Urine Clarity Clear (Clear); Urine Urobilinogen Normal (Normal)
[2022-01-02 23:41] LABS: AST(SGOT) 20 U/L (15-37); Alanine Aminotransfer ALT/SGPT 34 U/L (16-61); Albumin, Serum 3.8 g/dL (3.2-5.0); Alkaline Phosphatase 75 U/L (45-117); Anion Gap 5 (5-15); BUN 17 mg/dL (7-18); BUN/Creat Ratio 16.2 RATIO (10-20); Bilirubin, Direct 0.13 mg/dL (0.00-0.30); Calcium,Total 9.5 mg/dL (8.5-10.1); Chloride 107 mmol/L (98-107); Creatinine, Serum 1.05 mg/dL (0.70-1.30); EST Glomerular Filtration Rate 74 mL/min (>60); Est Glom Filt Rate - Afr Amer 89 mL/min (>60); Globulin 3.7 g/dL (2.2-4.2); Glucose 147 mg/dL (74-106); Lipase 186 U/L (73-393); Potassium 3.8 mmol/L (3.5-5.1); Protein, Total 7.5 g/dL (6.4-8.2); Sodium Level 139 mmol/L (136-145)
[2022-01-02 23:46] LABS: Bacteria 1+ /hpf (None Seen); Squamous Epithelial Cells - UA 0-5 SEEN /hpf (0-5); White Blood Cells 25-50 SEEN /hpf (0-5)
[2022-01-03] MEDS: Cephalexin 250 MG Capsule 500 MG PO (01:00)
[2022-01-03] MEDS: Phenazopyridine 95 MG Tablet 190 MG PO (01:02)
[2022-01-03 01:06] VITALS: BP 98/71; PULSE 107; RESP 18; O2SAT 95
== END 2022-01-03 01:08 | disposition home or self-care (01) ==
LOC: ED 23:24
PROVIDERS: Emergency Provider Emergency Medicine; PCP Family Medicine; Visit Provider Emergency Medicine
DX: N39.0 Urinary tract infection, site not specified (principal); I11.0 Hypertensive heart disease with heart failure; I50.22 Chronic systolic (congestive) heart failure; E66.01 Morbid (severe) obesity due to excess calories; E11.9 Type 2 diabetes mellitus without complications; E78.5 Hyperlipidemia, unspecified; I25.10 Atherosclerotic heart disease of native coronary artery without angina pectoris; I25.5 Ischemic cardiomyopathy; Q21.1 Atrial septal defect; I25.2 Old myocardial infarction; I35.0 Nonrheumatic aortic (valve) stenosis; Z79.84 Long term (current) use of oral hypoglycemic drugs; Z79.82 Long term (current) use of aspirin; Z79.02 Long term (current) use of antithrombotics/antiplatelets; Z79.899 Other long term (current) drug therapy; Z95.2 Presence of prosthetic heart valve; Z95.1 Presence of aortocoronary bypass graft; Z68.35 Body mass index [BMI] 35.0-35.9, adult
CPT/HCPCS: 74177; 80048; 80076; 81001; 83690; 85025; 87077; 87086; 87088; 87186; 99285; Q9967

== ENCOUNTER 2022-02-18 13:00 | Outpatient (RCR) | payer MEDICARE, OTHER, SELFPAY ==
[2021-12-27 10:00] VITALS: BMI 36.7
[2022-01-21 00:39] VITALS: BP 118/68; BP 120/80
--- NOTE | 2022-01-24 14:28 | CR.ITP_ITS ---
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 Patient had a surgical procedure to implant a Defibrillator/pacemaker device and has been released to now resume his CR. - Physician Prescribed Exercise Modalities: Treadmill, NuStep, SciFit Frequency: 3x/week for 12 weeks [36 sessions] Intensity: 60-80% of age predicted maximum heart rate reserve Current METSs:: 3.0 Target Heart Rate:: 96-125 Current RPE:: 12 Maximum Excercise HR:: 108 Resting Blood Pressure: 90/62 Maximum Exercise Blood Pressure: 118/74 EKG Type: NSR to sinus tachycardia LBBB with rare PVCs. Current Physical Activity or Exercising minutes: 35:40 - Intervention & Plan Exercise Program Goals: Instruct on personal THR & RPE, Instruct on MET level & personal MET goal, Show patient to take own pulse /validate performance until accurate, Instruct on home exercise - 30-day Reassessments 30 day Reassessments:: Progressing - Physical Activity Home Exercise Physical Activity - Home Exercise: Safe Exercise, Warm-up, Self-monitoring, Cool-Down, Home Exercise > 30 min Daily, Sitting Time <3 hours/daily - Outcomes & Goals Outcomes/Goals: Demonstrates correct Warm-up/exercise Cool-Down (S3) if = 2.5 METs, Verbalizes symptoms of exercise intolerance by Session 3 (S3), Demonstrate safe equipment use (S3) & follows exercise prescrition (6) - Intervention & Plan Plan/Intervention: Instruct warm-up & cool-down if exercising at > 2 METs, Instruct on symptoms of exercise intolerance & actions to take, Instruct & monitor on saf, Assess intial functional capacity & safety risk - 30-day Reassessments 30 day Reassessments:: Progressing Nutrition - Initial Assessment Nutrition - 30-Day Assessment - Program Goals Nutrition Program Goals: LDL <100 optimal. 100 - 129 Near optimal. 130 - 159 Borderline High. 160 - 189 High. Total Cholesterol <200 desirable. 200 - 239 Borderline High. >/= 240 High. HDL < 40 Low >/=60 High. Triglycerides <150 desirable. <199 optimal. VlDL 5 - 40. HgbA1C <7%. BMI <25 Patient has diagnosis of Hyperlipidemia (ICD E78)?: Yes - Visit Date of Assessment:: 01/24/22 Session #:: 13 - Cholesterol/Lipids Triglycerides (mg/dL): 0 - not available Determine presence & major risk factors that modify LDL goal: Hypertension or hypertensive medication, Family history of premature CHD in Male < 55 years: female <65 yearsFa, Age men > 45 years; women >/= 55 years Outcomes/Goals: Pt IDs own risk factors & lifestyle modifications by Session 10, Verbalizes symptoms of angina & response by session 3., Pt independently manages Intervention/Plan: Instruct on personal lipid levels & lipid goals/NCEP guidelines Referral to dietitian:: No - Medical Nutrition Therapy - after speaking with the patient they declined. 30-day Reassessments:: Progressing - Diabetes (Other Core Measures) Diabetes Type: Diagnosis Type II ICD-10 E11 - Weight Mgt (Other Care) Not Applicable: No Height: 6 ft - Weight:: 271 lb BMI: 36.7 Diagnosis Overweight/Obesity BMI> 30% ICD-10 E66: Yes Diagnosis High BMI/Morbid Obesity BMI> 35% ICD-10 Z68: Yes Outcomes/Goals: Pt sets, maintains & shows weight loss goal & trend during rehab Intervention/Plan: Instruct on ideal BMI & set weight loss goal w/patient, Assist pt to ID & incorporate diet changes for weight loss by S9, Encourage goal of using 250-300dcal per session for weight loss 30 day Reassessments:: Progressing - Healthy Eating Habits Will attend diet classes:: Yes Outcomes/Goals:: Consume diet rich in vegs,fruits,whole grain/high fiber,fish,lean meat, Limit sat/trans fats,cholesterol & added salts & sugars Intervention/Plan:: Assess current eating habits 30-day Reassessments:: Progressing - Education Gave educational materials for:: Signs & symptoms of hypoglycemia, Signs & symptoms of hyperglycemia, Relate diabetes to coronary artery disease, Healthy eating Nutrition - 60-Day Assessment Nutrition - 90-Day Assessment Nutrition - Final Assessment Medical - Initial Assessment Medical- 30-Day Assessment - Visit Date of Eval: 01/24/22 Session #:: 13 - Medication Compliance Preventative Medication(s):: Aspirin, Clopidogrel/P2Y12 inhibit, Statin/lipid, Beta sandy H/O mental health issues: depression, anxiety, or addiction?: No Doesn?t believe in the benefits of treatment?: No Believes medications are unnecessary or harmful?: No Has a concern about medication side effects?: No Expresses concern over the cost of medications?: No Outcomes/Goals: Verbalizes medications,desired effect & common side effects @ DC, Pt self-reports following medication regimen, Keeps card in wallet w/medications listed by DC Interventions/plans: Instruct on medication effects & side effects, Review medication list w/patient every two weeks, Instruct importance of taking meds as ordered & assist problem solving 30-day Reassessments:: Progressing - Tobacco Use Tobacco Use: Non-smoker - Hypertension Hypertension Diagnosis:: Hypertension ICD-10 I10 Resting Blood Pressure:: 90/62 [place] [employer] Hypertension Guidelines: [place] [employer] Hypertension Guidelines. Normal BP Less than 120/80. Elevated BP 120/80. Hypertension Stage 1: BP 130-139/80-89. Hypertesnion Stage 2: BP 140 or higher/90 or higher. Hypertension Crisis: BP higher than 180/120 Peak Exercise Blood Pressure:: 118/74 Outcomes/Goals: Able to verbalize/achieve optimal blood pressure <130/80, Incorporates diet changes & exercise for blood pressure control by DC Interventions/plan: Instruct on optimal blood pressure, hypertension & medications, Instruct on effects of sodium, alcohol, stress, exercise &hypertension 30 day Reassessments:: Progressing - Tobacco Cessation Referral Smoking Cessation Referral:: No Individual Education/Counseling:: No Education Schedule Given:: Yes Medical- 60-Day Assessment Medical- 90-Day Assessment Medical - Final Assessment Psychosocial - Initial Assess Psychosocial - 30-Day Assess - VIsit Date of Eval: 01/24/22 Session #:: 13 Not Applicable: Yes History of previous Mental disease:: No - Psychosocial Test Tool Used:: PHQ-9 Questionnaire phq-9 Severity: Severity. 1-4 Minimal Depression. 5-9 Mild Depression. 10-14 Moderate Depression. 15-19 Moderately Sever Depression. 20-27 Severe Depression. Rule: - Referral to Behavioral Health PS - Interventions: Yes Attend Stress Management Classes, No Referral to Behavioral Health if PHQ-9 score >9:, No Referral to [facility], No Referral to Physician if PHQ-9 if score is 5-9: - Outcomes/Goals: See list Psychosocial Outcomes/Goals:: ID's personal stressors & 2 strategies to manage stress by discharge - Intervention/Plan: See List Interventions/Plan:: Assess stressors,coping strategies & signs of derpression on admission, Instruct/assist pt to develop coping & personal stress Mgt strategies, Instruct patient to recognize signs & symptoms of depression, Instruct patient to recog - 30-day Reassessments: 30 day Reassessments:: Progressing Psychosocial - 60-Day Assess Psychosocial - 90-Day Assess Psychosocial - Final Assessmen Patient Health Questionnaire 30-Day Re-eval Assessment 1. Little interest or pleasure in doing things: Not at all 2. Feeling down, depressed, or hopeless: Not at all 3. Trouble falling or staying asleep, or sleeping too much: Not at all 4. Feeling tired or having little energy: Not at all 5. Poor appetite or overeating: Not at all 6. Feeling bad about yourself -- or that you are a failure or have let yourself or your family down: Not at all 7. Trouble concentrating on things, such as reading the newspaper or watching television: Not at all 8. Moving or speaking so slowly that other people could have noticed. Or the opposite - being so fidgety or restless that you have been moving around a lot m ore than usual: Not at all 9. Thoughts that you would be better off , or of hurting yourself in some way: Not at all Total Score: 0 Self-Efficacy 30-Day Re-eval Assessment We would like to know how confident you are in doing certain activities. Please select your confidence level for:: Select your confidence level for the following using the scale 1-10 where 1 is not at all confident and 10 is totally confident. Your score is the average of all 6 responses. Fatigue: How confident are you that you can keep the fatigue caused by your disease from interfering with the things you want to do? Select Number: 9 Physical Discomfort or Pain: How confident are you that you can keep the physical discomfort or pain of your disease from interfering with the things you want to do? Select Number: 9 Emotional Distress: How confident are you that you can keep the emotional distress caused by your disease from interfering with the things you want to do? Select Number: 9 Other Symptoms or Health Problems: How confident are you that you can keep other symptoms or health problems from interfering with the things you want to do? Select Number: 9 Different Tasks and Activities: How confident are you that you can do the different tasks and activities needed to manage your health condition so as to reduce your need to see a doctor? Select Number: 9 Medication: How confident are you that you can do things other than just taking medication to reduce how much your illness affects your everyday life? Select Number: 9 Total Score:: 9 Nutrition Survey
[2022-01-24 14:38] VITALS: BP 118/74; BP 90/62; BMI 36.7
== END 2022-02-19 23:59 ==
LOC: CR 13:00
PROVIDERS: PCP Family Medicine
DX: I65.23 Occlusion and stenosis of bilateral carotid arteries (principal); Z98.890 Other specified postprocedural states
CPT/HCPCS: 93798

== ENCOUNTER 2022-03-18 13:00 | Outpatient (RCR) | payer MEDICARE, OTHER, SELFPAY ==
[2022-01-24 14:38] VITALS: BMI 36.7
[2022-02-20 00:34] VITALS: BP 118/74; BP 90/62
--- NOTE | 2022-02-24 09:57 | PCM.CR.ITP ---
Diagnosis Exercise - 90-day Assessment - Visit Date of Eval: 02/24/22 Session #:: 24 Comments:: Patient was on medical hold 01/03/2022 through 01/24/2022 for device implant. - Physician Prescribed Exercise Modalities: Treadmill, NuStep, Lateral [place] Frequency: 3x/week for 12 weeks [36 sessions] Intensity: 60-80% of age predicted maximum heart rate reserve Current METSs:: 5.0 Target Heart Rate:: 96-125 Current RPE:: 11-13 Maximum Excercise HR:: 94 Resting Blood Pressure: 116/62 Maximum Exercise Blood Pressure: 122/80 EKG Type: Paced rhythm with occasional PVC and rare PAC Current Physical Activity or Exercising minutes: 36 - Outcomes & Goals Goals:: Verbalizes understanding of THR, RPE & goal METS by session 6, Documents in home exercise log/reports 30 min aerobic 5 day/wk by DC, Demonstrates accurate pulse taking by DC - Intervention & Plan Exercise Program Goals: Instruct on personal THR & RPE, Instruct on MET level & personal MET goal, Show patient to take own pulse /validate performance until accurate, Instruct on home exercise - 30-day Reassessments 30 day Reassessments:: Progressing - Physical Activity Home Exercise Physical Activity - Home Exercise: Safe Exercise, Warm-up, Self-monitoring, Cool-Down, Home Exercise > 30 min Daily, Sitting Time <3 hours/daily - Outcomes & Goals Outcomes/Goals: Demonstrates correct Warm-up/exercise Cool-Down (S3) if = 2.5 METs, Verbalizes symptoms of exercise intolerance by Session 3 (S3), Demonstrate safe equipment use (S3) & follows exercise prescrition (6) - Intervention & Plan Plan/Intervention: Instruct warm-up & cool-down if exercising at > 2 METs, Instruct on symptoms of exercise intolerance & actions to take, Instruct & monitor on saf, Assess intial functional capacity & safety risk - 30-day Reassessments 30 day Reassessments:: Progressing Nutrition - Initial Assessment Nutrition - 30-Day Assessment Nutrition - 60-Day Assessment Nutrition - 90-Day Assessment - Program Goals Nutrition Program Goals: LDL <100 optimal. 100 - 129 Near optimal. 130 - 159 Borderline High. 160 - 189 High. Total Cholesterol <200 desirable. 200 - 239 Borderline High. >/= 240 High. HDL < 40 Low >/=60 High. Triglycerides <150 desirable. <199 optimal. VlDL 5 - 40. HgbA1C <7%. BMI <25 Patient has diagnosis of Hyperlipidemia (ICD E78)?: Yes - Visit Date of Assessment:: 02/24/22 Session #:: 24 - Cholesterol/Lipids Determine presence & major risk factors that modify LDL goal: Hypertension or hypertensive medication, Age men > 45 years; women >/= 55 years Outcomes/Goals: Pt IDs own risk factors & lifestyle modifications by Session 10, Verbalizes symptoms of angina & response by session 3., Pt independently manages Intervention/Plan: Instruct on personal lipid levels & lipid goals/NCEP guidelines, Instruct on cholesterol Referral to dietitian:: No - After speaking with the patient they declined. 30-day Reassessments:: Met - Diabetes (Other Core Measures) Diabetes Type: Diagnosis Type II ICD-10 E11 Insulin dependent injection/pump?: Yes Non-Insulin Dependent?: Yes Referral to Diabetic Clinic:: No - patient declined Reassessment Notes & Comments:: Needs reinforcement of risk factor modification, weight loss, diet in reducing risk factors. - Weight Mgt (Other Care) Not Applicable: No Height: 6 ft Weight:: 271 lb 8 oz BMI: 36.8 Diagnosis Overweight/Obesity BMI> 30% ICD-10 E66: Yes Diagnosis High BMI/Morbid Obesity BMI> 35% ICD-10 Z68: Yes Outcomes/Goals: Pt sets, maintains & shows weight loss goal & trend during rehab Intervention/Plan: Instruct on ideal BMI & set weight loss goal w/patient, Assist pt to ID & incorporate diet changes for weight loss by S9 30 day Reassessments:: Not Met Reassessment Notes & Comments:: Patient declined Nutrition Services consult and structured weight loss programs. - Healthy Eating Habits Will attend diet classes:: Yes Outcomes/Goals:: Consume diet rich in vegs,fruits,whole grain/high fiber,fish,lean meat, Limit sat/trans fats,cholesterol & added salts & sugars Intervention/Plan:: Assess current eating habits 30-day Reassessments:: Not Met - Patient needs reinforcement of weight loss and nutrition modification of risk factor Nutrition - Final Assessment Medical - Initial Assessment Medical- 30-Day Assessment Medical- 60-Day Assessment Medical- 90-Day Assessment - Visit Date of Eval: 02/24/22 Session #:: 24 - Medication Compliance Preventative Medication(s):: Aspirin, Clopidogrel/P2Y12 inhibit, Statin/lipid, Beta sandy, Eliquis H/O mental health issues: depression, anxiety, or addiction?: No Doesn?t believe in the benefits of treatment?: No Believes medications are unnecessary or harmful?: No Has a concern about medication side effects?: No Expresses concern over the cost of medications?: No Outcomes/Goals: Verbalizes medications,desired effect & common side effects @ DC, Pt self-reports following medication regimen, Keeps card in wallet w/medications listed by DC Interventions/plans: Instruct on medication effects & side effects, Review medication list w/patient every two weeks, Instruct importance of taking meds as ordered & assist problem solving 30-day Reassessments:: Met - Tobacco Use Tobacco Use: Non-smoker - Hypertension Hypertension Diagnosis:: Hypertension ICD-10 I10 Resting Blood Pressure:: 116/62 [place] [employer] Hypertension Guidelines: [place] [employer] Hypertension Guidelines. Normal BP Less than 120/80. Elevated BP 120/80. Hypertension Stage 1: BP 130-139/80-89. Hypertesnion Stage 2: BP 140 or higher/90 or higher. Hypertension Crisis: BP higher than 180/120 Peak Exercise Blood Pressure:: 122/80 Outcomes/Goals: Able to verbalize/achieve optimal blood pressure <130/80, Incorporates diet changes & exercise for blood pressure control by DC Interventions/plan: Instruct on optimal blood pressure, hypertension & medications, Instruct on effects of sodium, alcohol, stress, exercise &hypertension 30 day Reassessments:: Met - Tobacco Cessation Referral Smoking Cessation Referral:: No Individual Education/Counseling:: No Education Schedule Given:: Yes Medical - Final Assessment Psychosocial - Initial Assess Psychosocial - 30-Day Assess Psychosocial - 60-Day Assess Psychosocial - 90-Day Assess - VIsit Date of Eval: 02/24/22 Session #:: 24 Not Applicable: Yes History of previous Mental disease:: No - Psychosocial Test Tool Used:: PHQ-9 Questionnaire phq-9 Severity: Severity. 1-4 Minimal Depression. 5-9 Mild Depression. 10-14 Moderate Depression. 15-19 Moderately Sever Depression. 20-27 Severe Depression. Rule: - Referral to Behavioral Health PS - Interventions: Yes Attend Stress Management Classes, No Referral to Behavioral Health if PHQ-9 score >9:, No Referral to [facility] Community [facility], No Referral to Physician if PHQ-9 if score is 5-9: - Outcomes/Goals: See list Psychosocial Outcomes/Goals:: ID's personal stressors & 2 strategies to manage stress by discharge - Intervention/Plan: See List Interventions/Plan:: Assess stressors,coping strategies & signs of derpression on admission, Instruct/assist pt to develop coping & personal stress Mgt strategies, Instruct patient to recognize signs & symptoms of depression, Instruct patient to recog - 30-day Reassessments: 30 day Reassessments:: Met Psychosocial - Final Assessmen Patient Health Questionnaire 90-Day Re-eval Assessment 1. Little interest or pleasure in doing things: Not at all 2. Feeling down, depressed, or hopeless: Not at all 3. Trouble falling or staying asleep, or sleeping too much: Not at all 4. Feeling tired or having little energy: Not at all 5. Poor appetite or overeating: Not at all 6. Feeling bad about yourself -- or that you are a failure or have let yourself or your family down: Not at all 7. Trouble concentrating on things, such as reading the newspaper or watching television: Not at all 8. Moving or speaking so slowly that other people could have noticed. Or the opposite - being so fidgety or restless that you have been moving around a lot more than usual: Not at all 9. Thoughts that you would be better off , or of hurting yourself in some way: Not at all Total Score: 0 Self-Efficacy 90-Day Re-eval Assessment We would like to know how confident you are in doing certain activities. Please select your confidence level for:: Select your confidence level for the following using the scale 1-10 where 1 is not at all confident and 10 is totally confident. Your score is the average of all 6 responses. Fatigue: How confident are you that you can keep the fatigue caused by your disease from interfering with the things you want to do? Select Number: 10 Physical Discomfort or Pain: How confident are you that you can keep the physical discomfort or pain of your disease from interfering with the things you want to do? Select Number: 10 Emotional Distress: How confident are you that you can keep the emotional distress caused by your disease from interfering with the things you want to do? Select Number: 10 Other Symptoms or Health Problems: How confident are you that you can keep other symptoms or health problems from interfering with the things you want to do? Select Number: 10 Different Tasks and Activities: How confident are you that you can do the different tasks and activities needed to manage your health condition so as to reduce your need to see a doctor? Select Number: 10 Medication: How confident are you that you can do things other than just taking medication to reduce how much your illness affects your everyday life? Select Number: 10 Total Score:: 10 Nutrition Survey
[2022-02-24 10:16] VITALS: BP 116/62; BP 122/80; BMI 36.8
== END 2022-03-22 23:59 ==
LOC: CR 13:00
PROVIDERS: PCP Family Medicine
DX: I65.23 Occlusion and stenosis of bilateral carotid arteries (principal); Z98.890 Other specified postprocedural states; Z95.1 Presence of aortocoronary bypass graft; I35.0 Nonrheumatic aortic (valve) stenosis; Z48.812 Encounter for surgical aftercare following surgery on the circulatory system
CPT/HCPCS: 93798

== ENCOUNTER 2022-03-30 13:00 | Outpatient (RCR) | payer MEDICARE, OTHER, SELFPAY ==
[2022-02-24 10:16] VITALS: BMI 36.8
[2022-03-23 00:51] VITALS: BP 116/62; BP 122/80
== END 2022-04-21 23:59 ==
LOC: CR 13:00
PROVIDERS: PCP Family Medicine
DX: Z98.890 Other specified postprocedural states; I65.23 Occlusion and stenosis of bilateral carotid arteries
CPT/HCPCS: 93798

== ENCOUNTER → 2023-03-30 | Outpatient (CLI) | payer MEDICARE, OTHER, SELFPAY ==
[2022-02-24 10:16] VITALS: BMI 36.8
[2023-03-30 12:26] LABS: Absolute Lymphocyte Count 1.32 X10^3/uL (0.83-4.51); Absolute Neutrophil Count 4.1 X10^3/uL (2.0-7.7); Basophil# 0.04 X10^3/uL; Basophil% 0.7 % (0-1); Eosinophil# 0.23 X10^3/uL; Eosinophils% 3.7 % (0-5); Hematocrit 45.7 % (40-54); Hemoglobin 14.8 g/dL (13.0-16.5); Lymphocyte # 1.32 X10^3/ul (0.83-4.51); Lymphocyte % 21.5 % (19-41); Mean Corp Hgb Conc 32.4 g/dL (32-36); Mean Corpuscular Hgb 28.6 pg (27.0-32.0); Mean Corpuscular Volume 88.2 fL (80-94); Mean Platelet Vol. 12.1 fl (6.2-12.0); Monocyte# 0.47 X10^3/uL; Monocyte% 7.6 % (0-10); NRBC Flagged by Analyzer 0 % (0-5); Neutrophil # 4.06 X10^3/uL (2.7-7.7); Platelet Count 177 K/mm3 (150-450); RBC Distribution Width CV 13.7 % (11.6-14.6); Red Blood Count 5.18 M/mm3 (4.6-6.2); White Blood Count 6.2 K/mm3 (4.4-11.0)
[2023-03-30 13:29] LABS: AST(SGOT) 20 U/L (15-37); Alanine Aminotransfer ALT/SGPT 35 U/L (16-61); Albumin, Serum 3.6 g/dL (3.2-5.0); Alkaline Phosphatase 64 U/L (45-117); Anion Gap 6 (5-15); BUN 17 mg/dL (7-18); BUN/Creat Ratio 13.1 RATIO (10-20); Calcium,Total 9.2 mg/dL (8.5-10.1); Chloride 107 mmol/L (98-107); Cholesterol 170 mg/dL (200); EST Glomerular Filtration Rate 57 mL/min (>60); Est Glom Filt Rate - Afr Amer 70 mL/min (>60); Globulin 3.5 g/dL (2.2-4.2); Glucose 127 mg/dL (74-106); High Density Lipoprotein 43 mg/dL; PSA,Total - Annual Screen 0.97 ng/mL (0.00-4.00); Potassium 4.7 mmol/L (3.5-5.1); Protein, Total 7.1 g/dL (6.4-8.2); Sodium Level 137 mmol/L (136-145); Triglycerides 166 mg/dL; Very Low Density Lipoprotein 33 mg/dL (5-40)
[2023-03-30 16:11] LABS: Microalbumin,Random Urine 9.2 mg/L (NO RANGE EST.); Microalbumin:Creatinine Ratio 9.3 mg/g CRE (<30 mg/g CRE)
== END | disposition home or self-care (01) ==
LOC: BFHLAB 09:08
PROVIDERS: PCP Family Medicine; Referring Provider Family Medicine; Visit Provider Family Medicine
DX: Z12.11 Encounter for screening for malignant neoplasm of colon (principal); E11.9 Type 2 diabetes mellitus without complications; Z12.5 Encounter for screening for malignant neoplasm of prostate; I10 Essential (primary) hypertension
CPT/HCPCS: 36415; 80053; 80061; 82043; 82570; 84153; 85025; G0103

== ENCOUNTER → 2025-09-29 | Outpatient (CLI) | payer MEDICARE, OTHER, SELFPAY ==
[2022-02-24 10:16] VITALS: BMI 36.8
[2025-09-29 12:59] LABS: AST(SGOT) 32 U/L (<=37); Alanine Aminotransfer ALT/SGPT 49 U/L (<=46); Albumin, Serum 4.5 g/dL (3.4-4.8); Alkaline Phosphatase 57 U/L (40-129); Anion Gap 12 (5-15); BUN 17 mg/dL (4-19); BUN/Creat Ratio 14.7 RATIO (10-20); Calcium,Total 10.0 mg/dL (7.6-11.0); Carbon Dioxide 23.1 mmol/L (21.0-32.0); Chloride 104 mmol/L (98-108); Globulin 2.9 g/dL (2.2-4.2); Glucose 135 mg/dL (70-99); PSA,Total - Annual Screen 0.92 ng/mL (0.02-4.00); Potassium 5.1 mmol/L (3.3-5.1)
[2025-09-29 13:58] LABS: Creatinine, Urine (random) 103.00 mg/dL (39.00-259.00); Microalbumin,Random Urine < 12.0 mg/L (<20 mg/L)
== END | disposition home or self-care (01) ==
LOC: BFHLAB 10:43
PROVIDERS: PCP Family Medicine; Visit Provider Family Medicine
DX: Z12.5 Encounter for screening for malignant neoplasm of prostate (principal); E11.9 Type 2 diabetes mellitus without complications; Z51.81 Encounter for therapeutic drug level monitoring
CPT/HCPCS: 36415; 80053; 82043; 82570; 84153; G0103